=== PATIENT | male | born 1940 | race Caucasian/White ===

== ENCOUNTER → 2017-01-30 | Outpatient (CLI) | payer MEDICARE ==
--- NOTE | 2017-01-30 12:40 | Diagnostic Imaging Report ---
INDICATION: Shortness of air. COMPARISON: None. FINDINGS: Frontal and lateral radiographic views of the chest were obtained and demonstrate moderate area of consolidative airspace disease within the left mid and lower lung contreras. Patchy and interstitial opacities are noted within the left mid and lower lung contreras. No large effusion or pneumothorax is seen. Cardiac silhouette and pulmonary vasculature are within normal limits. Bony structures show no gross acute abnormalities. IMPRESSION: 1. Bilateral infiltrates, left greater than right. Dictated by: Dictated on workstation # [id number]
== END ==
LOC: RAD 11:21
PROVIDERS: ATTEND Internal Medicine
DX: J18.9 Pneumonia, unspecified organism (principal)
CPT/HCPCS: 71020

== ENCOUNTER → 2017-03-05 | Outpatient (CLI) | payer MEDICARE ==
--- NOTE | 2017-03-05 17:30 | Diagnostic Imaging Report ---
CLINICAL INDICATION: Followup pneumonia. EXAM: Chest x-ray PA and lateral views. COMPARISON: Chest x-ray dated 01/30/2017. FINDINGS: There is no significant change in appearance to the patchy consolidation in the left midlung field left lung base. There is no significant change to the smaller amount of patchy consolidation involving the right lung base with increased lung markings involving the right midlung field right lung base regions. There is blunting of both costophrenic angles with no definite pleural effusion seen posteriorly. Cardiac silhouette and pulmonary vasculature is within normal limits. Bones show no interval significant abnormality. IMPRESSION: There is stable appearance of both lungs with bibasilar consolidation (left side more than the right), and increased lung markings in right lung. Given the stability, these findings may be related to chronic lung changes. Chronic pneumonia or lung mass also can't be completely excluded. Comparison with prior chest x-rays would help better evaluate. If none are available, then CT scan of the chest with contrast is suggested for further evaluation. Dictated by: Dictated on workstation # [id number]
== END ==
LOC: RAD 16:24
PROVIDERS: ATTEND Internal Medicine
DX: J18.1 Lobar pneumonia, unspecified organism (principal)
CPT/HCPCS: 71046

== ENCOUNTER → 2017-03-12 | Outpatient (CLI) | payer MEDICARE ==
[~2017-03-12] MED LIST: IOHEXOL 350 MG/ML 100 ML (OMNIPAQUE 350) VIAL IV ONE; NS 100 ML (IVPB) BAG IV ONE
--- NOTE | 2017-03-12 08:25 | Diagnostic Imaging Report ---
PROCEDURE: CT chest with contrast only. TECHNIQUE: Multiple contiguous axial images were obtained through the chest after administration of intravenous contrast. INDICATION: Pneumonia. Comparison is made with chest radiograph from 03/05/2017. No chest CT studies are available for comparison. FINDINGS: No axillary lymphadenopathy is identified. There are small lymph nodes within the mediastinum, but no pathologically enlarged nodes are identified. Kimberly are unremarkable. No pericardial fluid is seen. There is a small amount of left pleural fluid. Note is made of a hiatal hernia. Parenchymal evaluation does show some subpleural interstitial changes in the upper lobes. There is extensive consolidation in the left lower lobe with air bronchograms. Consolidation in the right lower lobe is also seen with air bronchograms but to a lesser degree. Upper abdomen does show a stone within the gallbladder. IMPRESSION: 1. Extensive bibasilar consolidation with air bronchograms, left greater with small left pleural effusion. 2. Hiatal hernia. 3. Cholelithiasis. Dictated by: Dictated on workstation # [id number]
== END ==
LOC: RAD 07:32
PROVIDERS: ATTEND Internal Medicine
DX: J18.9 Pneumonia, unspecified organism (principal); K44.9 Diaphragmatic hernia without obstruction or gangrene; K80.20 Calculus of gallbladder without cholecystitis without obstruction
CPT/HCPCS: 71260

== ENCOUNTER 2017-03-15 13:12 | Inpatient (IN) | payer MEDICARE ==
[~2017-03-15] VITALS: Ht 188 cm; Wt 93.0 kg
--- NOTE | 2017-03-15 13:26 | ED Cough/URI ---
General Stated Complaint: SOB Source: patient Exam Limitations: no limitations History of Present Illness Date Seen by Provider: Mar 15, 2017 Time Seen by Provider: 13:23 Initial Comments To ER complaint by his with worsening pneumonia. He's had pneumonia since just before . At that time he was given a seven-day course of Levaquin. He's not been on any antibiotics since then. His shortness of breath has worsened however. He was a former smoker having quit about 30 years ago. He did have a CT scan of his chest and here last week. Timing/Duration: constant, getting worse Severity/Quality: dry cough Associated Symptoms: cough Allergies and Home Medications Allergies Coded Allergies: No Allergy Information Available (Unverified , 03/12/17) Home Medications Albuterol Sulfate 18 Gm Hfa.aer.ad, (Reported) Bimatoprost 2.5 Ml Drops, (Reported) [Proair] , (Reported) Constitutional: see HPI, chills EENTM: see HPI Respiratory: see HPI, cough ( what's concert) Cardiovascular: no symptoms reported Genitourinary: no symptoms reported Musculoskeletal: no symptoms reported Skin: no symptoms reported Psychiatric/Neurological: No Symptoms Reported Hematologic/Lymphatic: No Symptoms Reported Immunological/Allergic: no symptoms reported ( formal) Past Hrbmckn-Haqtjb-Fkapsj Hx Patient Social History Recent Foreign Travel: No Contact w/Someone Who Travel: No Physical Exam Vital Signs Vital Sign - Last 12Hours 03/15/17 13:49 Temp 97.4 Pulse 89 Resp 20 B/P (MAP) 170/100 (123) Pulse Ox 95 O2 Delivery Nasal Cannula O2 Flow Rate 2.00 Capillary Refill : General Appearance: WD/WN, no apparent distress Eyes: Bilateral Eye Normal Inspection, Bilateral Eye PERRL, Bilateral Eye EOMI HEENT: PERRL/EOMI, normal ENT inspection Neck: non-tender, full range of motion Respiratory: no respiratory distress, no accessory muscle use, decreased breath sounds (LEFT LOWER) Cardiovascular: regular rate, rhythm, no murmur Gastrointestinal: normal bowel sounds, non tender, soft Extremities: normal range of motion, non-tender Neurologic/Psychiatric: alert, normal mood/affect, oriented x 3 Skin: normal color, warm/dry Focused Exam Evaluation Lactate Level Laboratory Tests 03/15/17 14:05: Lactic Acid Level 1.02 Lactic Acid Level Laboratory Tests Test 03/15/17 14:05 Lactic Acid Level 1.02 MMOL/L (0.50-2.00) Progress/Results/Core Measures Suspected Sepsis SIRS Temperature: Pulse: Respiratory Rate: Laboratory Tests 03/15/17 13:26: White Blood Count 10.7 Blood Pressure / Mean: Laboratory Tests 03/15/17 14:05: Lactic Acid Level 1.02 Laboratory Tests 03/15/17 13:26: Platelet Count 363 03/15/17 14:05: Creatinine 1.15, Total Bilirubin 0.6 Results/Orders Lab Results Laboratory Tests Test 03/15/17 13:26 03/15/17 14:05 Range/Units White Blood Count 10.7 4.3-11.0 10^3/uL Red Blood Count 5.12 4.35-5.85 10^6/uL Hemoglobin 16.2 13.3-17.7 G/DL Hematocrit 46 40-54 % Mean Corpuscular Volume 90 80-99 FL Mean Corpuscular Hemoglobin 32 25-34 PG Mean Corpuscular Hemoglobin Concent 35 32-36 G/DL Red Cell Distribution Width 13.4 10.0-14.5 % Platelet Count 363 130-400 10^3/uL Mean Platelet Volume 9.7 7.4-10.4 FL Neutrophils (%) (Auto) 80 H 42-75 % Lymphocytes (%) (Auto) 9 L 12-44 % Monocytes (%) (Auto) 8 0-12 % Eosinophils (%) (Auto) 2 0-10 % Basophils (%) (Auto) 1 0-10 % Neutrophils # (Auto) 8.5 H 1.8-7.8 X 10^3 Lymphocytes # (Auto) 1.0 1.0-4.0 X 10^3 Monocytes # (Auto) 0.9 0.0-1.0 X 10^3 Eosinophils # (Auto) 0.2 0.0-0.3 10^3/uL Basophils # (Auto) 0.1 0.0-0.1 10^3/uL Sodium Level 137 135-145 MMOL/L Potassium Level 4.1 3.6-5.0 MMOL/L Chloride Level 107 98-107 MMOL/L Carbon Dioxide Level 22 21-32 MMOL/L Anion Gap 8 5-14 MMOL/L Blood Urea Nitrogen 22 H 7-18 MG/DL Creatinine 1.15 0.60-1.30 MG/DL Estimat Glomerular Filtration Rate > 60 BUN/Creatinine Ratio 19 Glucose Level 123 H 70-105 MG/DL Lactic Acid Level 1.02 0.50-2.00 MMOL/L Calcium Level 10.0 8.5-10.1 MG/DL Total Bilirubin 0.6 0.1-1.0 MG/DL Aspartate Amino Transf (AST/SGOT) 21 5-34 U/L Alanine Aminotransferase (ALT/SGPT) 31 0-55 U/L Alkaline Phosphatase 123 40-136 U/L B-Type Natriuretic Peptide 10.4 <100.0 PG/ML Total Protein 7.3 6.4-8.2 GM/DL Albumin 3.8 3.2-4.5 GM/DL My Orders Orders - SOLE ZIMMERMAN APRN Cbc With Automated Diff (03/15/17 13:20) Comprehensive Metabolic Panel (03/15/17 13:20) Ua Culture If Indicated (03/15/17 13:20) Saline Lock/Iv-Start (03/15/17 13:20) Blood Culture (03/15/17 13:20) Chest Pa/Lat (2 View) (03/15/17 13:20) BNP (03/15/17 13:20) Saline Lock/Iv-Start (03/15/17 13:20) Lactic Acid Analyzer (03/15/17 13:20) Albuterol/Ipra Inhalation Soln (Duoneb I (03/15/17 14:00) Svn Sm Volume Nebulizer Rt-Rfs (03/15/17 13:52) Blood Culture (03/15/17 14:05) Medications Given in ED Current Medications Medications Dose Ordered Sig/Frantz Route Start Time Stop Time Status Last Admin Dose Admin Albuterol/ Ipratropium 3 ml ONCE ONCE INH 03/15/17 14:00 03/15/17 14:01 DC 03/15/17 14:08 3 ML Vital Signs/I&O Vital Sign - Last 12Hours 03/15/17 03/15/17 13:49 14:09 Temp 97.4 Pulse 89 Resp 20 B/P (MAP) 170/100 (123) Pulse Ox 95 O2 Delivery Nasal Cannula Nasal Cannula O2 Flow Rate 2.00 2.00 Capillary Refill : Departure Communication (Admissions) Time/Spoke to Admitting Phy: 14:44 Communication I discussed case with Dr. Ely. We'll admit the patient and consult pulmonology Time/Spoke to Consulting Phy: 14:45 Communication/Consulting Discussed with Dr. Verdugo from pulmonology. He agrees to consult. Impression Impression: Primary Impression: Pneumonia Additional Impression: Bilateral pleural effusion Disposition: ADMITTED INPATIENT Condition: Stable Admissions Decision to Admit Reason: Admit from ER (General) Decision to Admit/Date: Mar 15, 2017 Time/Decision to Admit Time: 14:44 Departure-Patient Inst. Referrals: UMA CRISOSTOMO DO (PCP/Family) Primary Care Physician SOLE ZIMMERMAN APRN Mar 15, 2017 13:26
[2017-03-15 13:40] LABS: BASOPHILS # (AUTO) 0.1 10^3/uL (0.0-0.1); BASOPHILS % (AUTO) 1 % (0-10); EOSINOPHILS # (AUTO) 0.2 10^3/uL (0.0-0.3); EOSINOPHILS % (AUTO) 2 % (0-10); HEMATOCRIT 46 % (40-54); HEMOGLOBIN 16.2 G/DL (13.3-17.7); LYMPHOCYTES % (AUTO) 9 % (12-44); MEAN CORPUSCULAR HEMOGLOBIN 32 PG (25-34); MEAN CORPUSCULAR HGB CONC 35 G/DL (32-36); MEAN CORPUSCULAR VOLUME 90 FL (80-99); MEAN PLATELET VOLUME 9.7 FL (7.4-10.4); MONOCYTES # (AUTO) 0.9 X 10^3 (0.0-1.0); MONOCYTES % (AUTO) 8 % (0-12); NEUTROPHILS # (AUTO) 8.5 X 10^3 (1.8-7.8); NEUTROPHILS % (AUTO) 80 % (42-75); PLATELET COUNT 363 10^3/uL (130-400); RED BLOOD COUNT 5.12 10^6/uL (4.35-5.85); RED CELL DISTRIBUTION WIDTH 13.4 % (10.0-14.5); WHITE BLOOD COUNT 10.7 10^3/uL (4.3-11.0)
[2017-03-15] MEDS ORDERED: INHA1EAC (14:00)
[2017-03-15] MEDS ORDERED: ALBU18HF2 IH (14:00)
[2017-03-15] MEDS ORDERED: BIMA2.5D4 OS (14:00)
[2017-03-15] MEDS ORDERED: PROAIR (14:00)
[2017-03-15] MEDS ORDERED: RT-ALBUTEROL/IPRATROPIUM 3 ML (DUONEB) VIAL INH ONE (14:00)
--- NOTE | 2017-03-15 14:28 | Diagnostic Imaging Report ---
INDICATION: Increasing difficulty breathing. TIME OF EXAM: 2:10 p.m. COMPARISON: Correlation is made with prior study from 03/05/2017. FINDINGS: The heart size is stable. There continues to be extensive infiltrate in the left base, similar to prior. There are some interstitial changes in the right mid and lower lung contreras, unchanged. There are bilateral effusions. No pneumothorax is seen. IMPRESSION: Bilateral infiltrates and effusions, similar in appearance to the examination from 03/05/2017. Dictated by: Dictated on workstation # [id number]
[2017-03-15 14:32] LABS: ALANINE AMINOTRANSFERASE 31 U/L (0-55); ALBUMIN 3.8 GM/DL (3.2-4.5); ALKALINE PHOSPHATASE 123 U/L (40-136); BILIRUBIN,TOTAL 0.6 MG/DL (0.1-1.0); BUN/CREATININE RATIO 19; CARBON DIOXIDE 22 MMOL/L (21-32); CHLORIDE 107 MMOL/L (98-107); CREATININE SERUM 1.15 MG/DL (0.60-1.30); GFR ESTIMATED > 60; GLUCOSE 123 MG/DL (70-105); POTASSIUM 4.1 MMOL/L (3.6-5.0); SODIUM 137 MMOL/L (135-145); TOTAL PROTEIN 7.3 GM/DL (6.4-8.2)
[2017-03-15] MEDS ORDERED: PIPERACILLIN SODIUM/TAZOBACTAM 4.5 GM in D5W 100 ML IVPB 100 ML IV ONE (15:00)
[2017-03-15] MEDS ORDERED: CATHETER FLUSH 10 ML SYR IV PRN (16:15)
[2017-03-15 16:25] VITALS: BP 160/89
[2017-03-15] MEDS ORDERED: RT-ALBUINH IH (16:55)
[2017-03-15] MEDS ORDERED: INFLUENZA TRIvalent 2017-2018 0.5 ML/45 MCG SYR IM ONE (17:30)
[2017-03-15] MEDS: CATHETER FLUSH 10 ML SYR IV SCH (19:40)
[2017-03-15] MEDS: PIPERACILLIN/TAZOBACTAM 4.5 GM/D5W 100 ML IVPB IV SCH ×2 (19:40)
[2017-03-15] MEDS ORDERED: HYDROcodone/APAP 5 MG/325 MG (LORTAB) TAB PO PRN (19:45)
[2017-03-15] MEDS ORDERED: fentaNYL INJECTION 100 MCG/2 ML AMP IVP PRN (19:45)
[2017-03-15] MEDS ORDERED: guaiFENesin/CODEINE (ROBITUSSIN AC) 10ML UDC PO PRN (19:45)
[2017-03-15] MEDS ORDERED: IBUPROFEN TABLET 200 MG TAB PO PRN (19:45)
[2017-03-15] MEDS ORDERED: ONDANSETRON 4 MG/2 ML (SDV) Z0FRAN IVP PRN (19:45)
[2017-03-15] MEDS ORDERED: ALPRAZolam 0.25 MG (XANAX) TAB PO PRN (19:45)
[2017-03-15] MEDS ORDERED: ACETAMINOPHEN 500 MG TAB (TYLENOL) PO PRN (19:45)
[2017-03-15 19:52] VITALS: BP 158/90
[2017-03-15] MEDS ORDERED: RT-ALBUTEROL/IPRATROPIUM 3 ML (DUONEB) VIAL INH PRN (20:30)
[2017-03-15] MEDS: amLODIPine 5 MG (NORVASC) TAB PO SCH (20:47)
[2017-03-15] MEDS: LATANOPROST 0.005% (XALATAN) OPHTH SOLN 2.5 ML OS SCH ×2 (20:49→21:23)
[2017-03-15] MEDS: RT-ALBUTEROL/IPRATROPIUM 3 ML (DUONEB) VIAL INH SCH (22:06)
[2017-03-16] VITALS: BP 141/84
[2017-03-16] MEDS: RT-ALBUTEROL/IPRATROPIUM 3 ML (DUONEB) VIAL INH SCH ×5 (01:13→19:14)
[2017-03-16 04:00] VITALS: BP 158/99
[2017-03-16] MEDS: PIPERACILLIN/TAZOBACTAM 4.5 GM/D5W 100 ML IVPB IV SCH ×6 (04:28→20:06)
[2017-03-16] MEDS: CATHETER FLUSH 10 ML SYR IV SCH ×3 (04:28→20:06)
[2017-03-16 07:09] LABS: BASOPHILS # (AUTO) 0.1 10^3/uL (0.0-0.1); BASOPHILS % (AUTO) 1 % (0-10); EOSINOPHILS # (AUTO) 0.2 10^3/uL (0.0-0.3); EOSINOPHILS % (AUTO) 3 % (0-10); HEMATOCRIT 42 % (40-54); HEMOGLOBIN 14.4 G/DL (13.3-17.7); LYMPHOCYTES # (AUTO) 0.8 X 10^3 (1.0-4.0); LYMPHOCYTES % (AUTO) 9 % (12-44); MEAN CORPUSCULAR HEMOGLOBIN 31 PG (25-34); MEAN CORPUSCULAR HGB CONC 34 G/DL (32-36); MEAN CORPUSCULAR VOLUME 91 FL (80-99); MEAN PLATELET VOLUME 10.2 FL (7.4-10.4); MONOCYTES % (AUTO) 11 % (0-12); NEUTROPHILS # (AUTO) 6.9 X 10^3 (1.8-7.8); NEUTROPHILS % (AUTO) 77 % (42-75); PLATELET COUNT 373 10^3/uL (130-400); RED BLOOD COUNT 4.59 10^6/uL (4.35-5.85); RED CELL DISTRIBUTION WIDTH 13.1 % (10.0-14.5)
[2017-03-16 07:23] LABS: ALANINE AMINOTRANSFERASE 28 U/L (0-55); ALBUMIN 3.8 GM/DL (3.2-4.5); ALKALINE PHOSPHATASE 115 U/L (40-136); BILIRUBIN,TOTAL 0.8 MG/DL (0.1-1.0); BUN/CREATININE RATIO 21; CALCIUM 9.8 MG/DL (8.5-10.1); CARBON DIOXIDE 22 MMOL/L (21-32); CHLORIDE 105 MMOL/L (98-107); CREATININE SERUM 1.08 MG/DL (0.60-1.30); GFR ESTIMATED > 60; GLUCOSE 103 MG/DL (70-105); POTASSIUM 3.8 MMOL/L (3.6-5.0); SODIUM 138 MMOL/L (135-145); TOTAL PROTEIN 7.2 GM/DL (6.4-8.2)
--- NOTE | 2017-03-16 07:27 | Pulmonary Consultation ---
History of Present Illness History of Present Illness Date of Consultation 03/16/17 07:22 Time Seen by Provider: 07:22 Date of Admission History of Present Illness 76yo presented secondary to worsening SOB. HE states he has had pneumonia since . He was given a 7 day course of Levaquin in Jan. He has not been on any Abx since that time. He quit smoking 30yrs ago. Allergies and Home Medications Allergies Coded Allergies: No Allergy Information Available (Unverified , 03/15/17) Home Medications Albuterol Sulfate 1 Puff Puff, 2 PUFF IH Q6H PRN for WHEEZING, (Reported) Amlodipine Besylate 5 Mg Tablet, 5 MG PO DAILY, #30 Prescribed by: LORI GANDHI on 03/19/17 0945 Amoxicillin/Potassium Clav 1 Each Tablet, 1 EACH PO BID for 5 Days, #10 Prescribed by: LORI GANDHI on 03/19/17 0945 Bimatoprost 2.5 Ml Drops, 1 DROP OS HS, (Reported) Guaifenesin/Pseudoephedrne HCl 1 Each Tab.er.12h, 1 TAB PO Q12H PRN for CONGESTION, (Reported) Multivitamin 1 Each Tablet, 1 TAB PO DAILY, (Reported) Naproxen Sodium 220 Mg Tablet, 220-440 MG PO Q8H PRN for PAIN-MILD, (Reported) Omeprazole Magnesium 20 Mg Tablet.dr, 20 MG PO DAILY, (Reported) Past Xakiwvr-Iaijrn-Vjrkat Hx Patient Social History Alcohol Use: Rarely Uses Number of Drinks Today: 0 Alcohol Beverage of Choice: Beer Recreational Drug Use: No Smoking Status: Former Smoker Type Used: Cigars Former Smoker, Quit: Mar 25, 1985 Recent Foreign Travel: No Contact w/Someone Who Travel: No Recent Infectious Disease Expo: No Recent Hopitalizations: No Physical Abuse: No Sexual Abuse: No Mistreated: No Fear: No Seasonal Allergies Seasonal Allergies: Yes (SEASONAL ALLERGIES) Surgeries History of Surgeries: Yes Surgeries: Eye Surgery Respiratory History of Respiratory Disorde: Yes Respiratory Disorders: Pneumonia Cardiovascular History of Cardiac Disorders: No Neurological History of Neurological Disord: No Genitourinary History of Genitourinary Disor: No Gastrointestinal History of Gastrointestinal Di: Yes Gastrointestinal Disorders: Gastroesophageal Reflux Musculoskeletal History of Musculoskeletal Dis: No Endocrine History of Endocrine Disorders: No HEENT History of HEENT Disorders: Yes HEENT Disorders: Glaucoma Cancer History of Cancer: No Psychosocial History of Psychiatric Problem: No Suicide Risk Score: 0 Integumentary History of Skin or Integumenta: No Blood Transfusions History of Blood Disorders: No Adverse Reaction to a Blood Tr: No Review of Systems Time Seen by Provider: 07:47 Exam Exam Vital Signs Date Time Temp Pulse Resp B/P (MAP) Pulse Ox O2 Delivery O2 Flow Rate FiO2 03/16/17 07:09 97 Nasal Cannula 2.00 03/16/17 04:00 97.5 82 18 158/99 (118) 98 Nasal Cannula 2.00 03/16/17 01:13 98 Nasal Cannula 2.00 03/16/17 01:00 68 03/16/17 00:00 97.5 57 20 141/84 (103) 99 Nasal Cannula 2.00 03/15/17 22:07 96 Nasal Cannula 2.00 03/15/17 20:52 Nasal Cannula 2.00 03/15/17 19:55 75 96 03/15/17 19:52 97.9 75 18 158/90 (112) 98 Nasal Cannula 2.00 03/15/17 19:00 75 03/15/17 16:25 97.2 76 18 160/89 (112) 98 Nasal Cannula 2.00 03/15/17 16:00 Nasal Cannula 2.00 03/15/17 15:40 97.4 82 16 98 Nasal Cannula 2.00 03/15/17 14:09 Nasal Cannula 2.00 03/15/17 13:49 97.4 89 20 170/100 (123) 95 Nasal Cannula 2.00 I & O 03/16/17 07:00 Intake Total 740 ml Output Total 400 ml Balance 340 ml Capillary Refill: Less Than 3 Seconds Gastrointestinal: normal bowel sounds, non tender, soft Results Lab Laboratory Tests 03/15/17 13:26 03/15/17 14:05 03/16/17 05:33 Assessment/Plan Assessment/Plan Pneumonia - failed out patient treatment -Continue broad spectrum abx. -repeat CT scan on Sunday -Pt may need bronchoscopy will await repeat CT 254 Clinical Quality Measures DVT/VTE Risk/Contraindication: Risk Factor Score Per Nursin RFS Level Per Nursing on Admit: 2=Moderate PHIL KEANE DO Mar 16, 2017 07:27
--- NOTE | 2017-03-16 07:44 | Pulmonary Progress Note ---
Subjective Time Seen by Provider: 07:44 Subjective/Events-last exam No complications noted. Exam Exam Vital Signs Date Time Temp Pulse Resp B/P (MAP) Pulse Ox O2 Delivery O2 Flow Rate FiO2 03/16/17 07:09 97 Nasal Cannula 2.00 03/16/17 04:00 97.5 82 18 158/99 (118) 98 Nasal Cannula 2.00 03/16/17 01:13 98 Nasal Cannula 2.00 03/16/17 01:00 68 03/16/17 00:00 97.5 57 20 141/84 (103) 99 Nasal Cannula 2.00 03/15/17 22:07 96 Nasal Cannula 2.00 03/15/17 20:52 Nasal Cannula 2.00 03/15/17 19:55 75 96 03/15/17 19:52 97.9 75 18 158/90 (112) 98 Nasal Cannula 2.00 03/15/17 19:00 75 03/15/17 16:25 97.2 76 18 160/89 (112) 98 Nasal Cannula 2.00 03/15/17 16:00 Nasal Cannula 2.00 03/15/17 15:40 97.4 82 16 98 Nasal Cannula 2.00 03/15/17 14:09 Nasal Cannula 2.00 03/15/17 13:49 97.4 89 20 170/100 (123) 95 Nasal Cannula 2.00 I & O 03/16/17 07:00 Intake Total 740 ml Output Total 400 ml Balance 340 ml General Appearance: No Apparent Distress, WD/WN, Anxious HEENT: PERRL/EOMI, Normal ENT Inspection, Pharynx Normal Neck: Full Range of Motion, Normal Inspection, Non Tender, Supple Respiratory: No Accessory Muscle Use, No Respiratory Distress, Crackles, Decreased Breath Sounds Cardiovascular: Regular Rate, Rhythm, No Edema, No Gallop Capillary Refill: Less Than 3 Seconds Gastrointestinal: normal bowel sounds, non tender, soft Extremity: Normal Capillary Refill, Normal Inspection Neurologic/Psychiatric: Alert Skin: Normal Color, Warm/Dry Lymphatic: No Adenopathy Results Lab Laboratory Tests 03/15/17 13:26 03/15/17 14:05 03/16/17 05:33 Assessment/Plan Assessment/Plan Pneumonia - failed out patient treatment -Continue broad spectrum abx. -repeat CT scan on Sunday -Pt may need bronchoscopy will await repeat CT 232 Clinical Quality Measures DVT/VTE Risk/Contraindication: Risk Factor Score Per Nursin RFS Level Per Nursing on Admit: 2=Moderate PHIL KEANE DO Mar 16, 2017 07:44
[2017-03-16 08:00] VITALS: BP 142/78
[2017-03-16] MEDS: amLODIPine 5 MG (NORVASC) TAB PO SCH (08:34)
[2017-03-16] MEDS ORDERED: NON-FORMULARY MEDICATION 1 EA EA (Bimatoprost (Lumigan) 1 DROP) OS SCH (09:00)
[2017-03-16] MEDS ORDERED: OMEP20TA33 PO (09:49)
[2017-03-16] MEDS ORDERED: MULT-35 PO (09:50)
[2017-03-16] MEDS ORDERED: GUAI-148 PO (09:51)
[2017-03-16] MEDS ORDERED: NAPR220T66 PO (09:52)
--- NOTE | 2017-03-16 11:31 | History & Physical-Hospitalist ---
HPI History of Present Illness: HPI/Chief Complaint CC: Recurrent pneumonia HPI: This is a 76-year-old white male clinic patient of Dr. Mckeon who is in relatively good health up until recently in January when he was treated for pneumonia from Dr. Mckeon's office completed that 7 day course of antibiotics and felt much better but did not feel like he had complete resolution. He presented to the ER with shortness of breath and cough and fever was found to have bilateral pneumonia with effusions so Dr. Verdugo was consulted and he will be maintained on IV antibiotics and repeat CT scan on Sunday to evaluate any resolution or the surfacing of any lung mass that may be the cause of this recurrent pneumonia issue. He was restarted on his home eyedrops but otherwise denies any use of any antihypertensive or any heart medicine. Source: patient Exam Limitations: no limitations Date Seen 03/16/17 Time Seen by Provider: 10:30 Attending Physician Alis Carranza DO PCP Uma Mckeon DO Referring Physician Date of Admission Mar 15, 2017 at 13:53 Home Medications & Allergies Home Medications Reviewed patient Home Medication Reconciliation Form Allergies Allergies Coded Allergies No Allergy Information Available (Unverified03/15/17) Past Rphpjva-Bcmaqs-Dabnih Hx Patient Social History Marrital Status: single Employed/Student: retired Alcohol Use: Rarely Uses Number of Drinks Today: 0 Alcohol Beverage of Choice: Beer Recreational Drug Use: No Smoking Status: Former Smoker Former Smoker, Quit: Mar 25, 1985 Type Used: Cigars Physical Abuse Screen: No Sexual Abuse: No Recent Foreign Travel: No Contact w/other who traveled: No Recent Hopitalizations: No Recent Infectious Disease Expo: No Seasonal Allergies Seasonal Allergies: Yes (SEASONAL ALLERGIES) Surgeries Yes Eye Surgery Respiratory Yes COPD, Pneumonia Cardiovascular No Neurological No Genitourinary No Gastrointestinal Yes Gastroesophageal Reflux Musculoskeletal No Endocrine History of Endocrine Disorders: No HEENT History of HEENT Disorders: Yes HEENT Disorders: Glaucoma Cancer No Psychosocial History of Psychiatric Problem: No Integumentary History of Skin or Integumenta: No Blood Transfusions History of Blood Disorders: No Adverse Reaction to a Blood Tr: No Review of Systems Constitutional: see HPI, fever, weakness EENTM: no symptoms reported Respiratory: cough, short of breath, wheezing Cardiovascular: no symptoms reported Gastrointestinal: no symptoms reported Genitourinary: no symptoms reported Musculoskeletal: no symptoms reported Skin: no symptoms reported Psychiatric/Neurological: No Symptoms Reported All Other Systems Reviewed Negative Unless Noted: Yes Physical Exam Physical Exam Vital Signs Vital Sign - Last 12Hours 03/15/17 13:49 Temp 97.4 Pulse 89 Resp 20 B/P (MAP) 170/100 (123) Pulse Ox 95 O2 Delivery Nasal Cannula O2 Flow Rate 2.00 Capillary Refill : Less Than 3 SecondsLess Than 3 Seconds General Appearance: No Apparent Distress, WD/WN, Chronically ill Eyes: Bilateral Eye Normal Inspection, Bilateral Eye PERRL HEENT: PERRL/EOMI, Normal ENT Inspection, Pharynx Normal Neck: Full Range of Motion, Normal Inspection, Non Tender, Supple, Carotid Bruit Respiratory: Chest Non Tender, No Accessory Muscle Use, No Respiratory Distress , Crackles, Decreased Breath Sounds, Wheezing Cardiovascular: Regular Rate, Rhythm, No Edema, No Gallop, No JVD, No Murmur, Normal Peripheral Pulses Gastrointestinal: Normal Bowel Sounds, No Organomegaly, No Pulsatile Mass, Non Tender, Soft Back: Normal Inspection, No CVA Tenderness, No Vertebral Tenderness Extremity: Normal Capillary Refill, Normal Inspection, Normal Range of Motion, Non Tender, No Calf Tenderness, No Pedal Edema Neurologic/Psychiatric: Alert, Oriented x3, No Motor/Sensory Deficits, Normal Mood/Affect Skin: Normal Color, Warm/Dry Lymphatic: No Adenopathy Results Results/Procedures Lab Laboratory Tests 03/15/17 13:26 03/15/17 14:05 03/16/17 05:33 Assessment/Plan Admission Diagnosis Assessment: Bilateral pneumonia with pleural effusions with recent pneumonia treated for 7 days on antibiotics in January Presumed COPD likely will need home oxygen at discharge Glaucoma Assessment and Plan Plan: IV antibiotics Nebulizer treatments Oxygen supplementation Home eyedrops Antitussives Copy Copies To 1: UMA MCKEON DO Clinical Quality Measures DVT/VTE Risk/Contraindication: Risk Factor Score Per Nursin RFS Level Per Nursing on Admit: 2=Moderate ALIS CARRANZA DO Mar 16, 2017 11:31
[2017-03-16 12:00] VITALS: BP 152/76
[2017-03-16] MEDS ORDERED: CALCIUM CARBONATE 500 MG (TUMS) TAB.CHEW PO PRN (15:30)
[2017-03-16] MEDS: PANTOPRAZOLE 40 MG (PROTONIX) TAB PO SCH (15:32)
[2017-03-16 16:23] VITALS: BP 136/79
[2017-03-16 19:30] VITALS: BP 159/89
[2017-03-16] MEDS: LATANOPROST 0.005% (XALATAN) OPHTH SOLN 2.5 ML OS SCH (20:06)
[2017-03-17] VITALS (7 sets, daily range): BP systolic 128–179; BP diastolic 69–93
[2017-03-17] MEDS: RT-ALBUTEROL/IPRATROPIUM 3 ML (DUONEB) VIAL INH SCH ×7 (00:17→23:09)
[2017-03-17] MEDS: PIPERACILLIN/TAZOBACTAM 4.5 GM/D5W 100 ML IVPB IV SCH ×6 (04:38→20:21)
[2017-03-17] MEDS: CATHETER FLUSH 10 ML SYR IV SCH ×3 (04:38→22:01)
[2017-03-17] MEDS: PANTOPRAZOLE 40 MG (PROTONIX) TAB PO SCH (04:39)
[2017-03-17] MEDS: amLODIPine 5 MG (NORVASC) TAB PO SCH (08:00)
--- NOTE | 2017-03-17 12:09 | Progress Note-Hospitalist ---
Progress Note HPI/CC on Admission CC: Recurrent pneumonia HPI: This is a 76-year-old white male clinic patient of Dr. Mckeon who is in relatively good health up until recently in January when he was treated for pneumonia from Dr. Mckoen's office completed that 7 day course of antibiotics and felt much better but did not feel like he had complete resolution. He presented to the ER with shortness of breath and cough and fever was found to have bilateral pneumonia with effusions so Dr. Verdugo was consulted and he will be maintained on IV antibiotics and repeat CT scan on Sunday to evaluate any resolution or the surfacing of any lung mass that may be the cause of this recurrent pneumonia issue. He was restarted on his home eyedrops but otherwise denies any use of any antihypertensive or any heart medicine. Progress Notes/Assess & Plan Date Seen 03/17/17 Time Seen by Provider: 11:00 Admission Dx/Process Assessment: Bilateral pneumonia with pleural effusions with recent pneumonia treated for 7 days on antibiotics in January Presumed COPD likely will need home oxygen at discharge Glaucoma Diagonsis/Assessment & Plan Patient doing much better and is able to ambulate well and currently is not on oxygen Nebulizers continue and that is helping him No chest pain and minimal cough CT scan ordered for tomorrow per pulmonology recommendations Denies any pain Bowels are moving No fever, vital signs stable, pleasant, improved Regular rate and rhythm, clear to auscultation bilaterally except bilateral bases crackles on the left are greater than the right No edema Assessment: Bilateral pneumonia with pleural effusions with recent pneumonia treated for 7 days on antibiotics in January Presumed COPD likely will need home oxygen at discharge Glaucoma Plan: IV antibiotics Nebulizer treatments Oxygen supplementation Home eyedrops Antitussives CT scan chest tomorrow Check labs in SHIVANI Alexandre DO Mar 17, 2017 12:09
[2017-03-17] MEDS: LATANOPROST 0.005% (XALATAN) OPHTH SOLN 2.5 ML OS SCH (20:31)
[2017-03-18] MEDS: RT-ALBUTEROL/IPRATROPIUM 3 ML (DUONEB) VIAL INH SCH ×4 (03:42→14:39)
[2017-03-18 04:07] VITALS: BP 145/87
[2017-03-18] MEDS: PIPERACILLIN/TAZOBACTAM 4.5 GM/D5W 100 ML IVPB IV SCH ×6 (05:10→20:41)
[2017-03-18] MEDS: CATHETER FLUSH 10 ML SYR IV SCH ×3 (05:11→20:41)
[2017-03-18] MEDS: PANTOPRAZOLE 40 MG (PROTONIX) TAB PO SCH (05:46)
[2017-03-18 07:03] LABS: BASOPHILS # (AUTO) 0.1 10^3/uL (0.0-0.1); BASOPHILS % (AUTO) 1 % (0-10); EOSINOPHILS # (AUTO) 0.4 10^3/uL (0.0-0.3); EOSINOPHILS % (AUTO) 4 % (0-10); HEMATOCRIT 41 % (40-54); HEMOGLOBIN 14.2 G/DL (13.3-17.7); LYMPHOCYTES # (AUTO) 0.8 X 10^3 (1.0-4.0); LYMPHOCYTES % (AUTO) 8 % (12-44); MEAN CORPUSCULAR HEMOGLOBIN 32 PG (25-34); MEAN CORPUSCULAR HGB CONC 35 G/DL (32-36); MEAN CORPUSCULAR VOLUME 92 FL (80-99); MEAN PLATELET VOLUME 10.2 FL (7.4-10.4); MONOCYTES # (AUTO) 1.3 X 10^3 (0.0-1.0); MONOCYTES % (AUTO) 13 % (0-12); NEUTROPHILS # (AUTO) 7.3 X 10^3 (1.8-7.8); NEUTROPHILS % (AUTO) 74 % (42-75); PLATELET COUNT 368 10^3/uL (130-400); RED BLOOD COUNT 4.49 10^6/uL (4.35-5.85); RED CELL DISTRIBUTION WIDTH 13.3 % (10.0-14.5); WHITE BLOOD COUNT 9.8 10^3/uL (4.3-11.0)
[2017-03-18 07:24] LABS: ALANINE AMINOTRANSFERASE 28 U/L (0-55); ALBUMIN 3.7 GM/DL (3.2-4.5); ALKALINE PHOSPHATASE 97 U/L (40-136); BILIRUBIN,TOTAL 0.9 MG/DL (0.1-1.0); BUN/CREATININE RATIO 19; CALCIUM 10.1 MG/DL (8.5-10.1); CARBON DIOXIDE 22 MMOL/L (21-32); CHLORIDE 106 MMOL/L (98-107); CREATININE SERUM 1.15 MG/DL (0.60-1.30); GFR ESTIMATED > 60; GLUCOSE 101 MG/DL (70-105); SODIUM 136 MMOL/L (135-145)
[2017-03-18 08:40] VITALS: BP 129/79
[2017-03-18] MEDS ORDERED: NS 250 ML (IVPB) BAG IV ONE (09:30)
[2017-03-18] MEDS ORDERED: NS 100 ML (IVPB) BAG IV ONE (09:30)
[2017-03-18] MEDS ORDERED: IOHEXOL 350 MG/ML 100 ML (OMNIPAQUE 350) VIAL IV ONE (09:30)
[2017-03-18] MEDS: amLODIPine 5 MG (NORVASC) TAB PO SCH (09:52)
--- NOTE | 2017-03-18 10:57 | Diagnostic Imaging Report ---
PROCEDURE: CT chest with contrast only. TECHNIQUE: Multiple contiguous axial images were obtained through the chest after administration of intravenous contrast. INDICATION: Pneumonia. COMPARISON with 03/12/2017 FINDINGS: There is extensive infiltrate in the patient's left lower lobe involving portions of the dependent lingular segment of the left upper lobe, as well. While considerable consolidation remains, overall improved from prior. There is hyperdensity within the periphery of the consolidated lung parenchyma which may reflect some chronic aspirated debris. This is unchanged. More mild patchy subpleural infiltrates and groundglass disease in the right lower lobe appeared unchanged. Subpleural scarring in the upper lobes, unchanged. Retrocardiac hernia, unchanged. Cholelithiasis noted incidentally. No demonstrated PE. The aorta is patent and nonaneurysmal. IMPRESSION: Extensive left lower lobe and lingular infiltrate remain, at least somewhat improved from prior. There is infiltrate in the right lower lobe and chronic lung disease superimposed unchanged. No abscess or empyema. Hiatal hernia and cholelithiasis, chronic. No new abnormality. Dictated by: Dictated on workstation # [id number]
[2017-03-18 12:00] VITALS: BP 135/74
--- NOTE | 2017-03-18 13:13 | Progress Note-Hospitalist ---
Progress Note HPI/CC on Admission CC: Recurrent pneumonia HPI: This is a 76-year-old white male clinic patient of Dr. Mckeon who is in relatively good health up until recently in January when he was treated for pneumonia from Dr. Mckeon's office completed that 7 day course of antibiotics and felt much better but did not feel like he had complete resolution. He presented to the ER with shortness of breath and cough and fever was found to have bilateral pneumonia with effusions so Dr. Verdugo was consulted and he will be maintained on IV antibiotics and repeat CT scan on Sunday to evaluate any resolution or the surfacing of any lung mass that may be the cause of this recurrent pneumonia issue. He was restarted on his home eyedrops but otherwise denies any use of any antihypertensive or any heart medicine. Progress Notes/Assess & Plan Date Seen 03/18/17 Time Seen by Provider: 11:30 Admission Dx/Process Assessment: Bilateral pneumonia with pleural effusions with recent pneumonia treated for 7 days on antibiotics in January Presumed COPD likely will need home oxygen at discharge Glaucoma Diagonsis/Assessment & Plan Patient doing much better and is able to ambulate well and currently is not on oxygen Nebulizers continue and that is helping him No chest pain and minimal cough CT scan reviewed revealing extensive pneumonia and no mass but will await Pulmonology evaluation Denies any pain Bowels are moving No fever, vital signs stable, pleasant, improved Regular rate and rhythm, clear to auscultation bilaterally except bilateral bases crackles on the left are greater than the right No edema Assessment: Bilateral pneumonia with pleural effusions with recent pneumonia treated for 7 days on antibiotics in January Presumed COPD likely will need home oxygen at discharge Glaucoma Plan: IV antibiotics Nebulizer treatments Oxygen supplementation Home eyedrops Antitussives CT scan chest to be reviewed by Dr Lucina MOORE Sunday SHIVANI CARRANZA DO Mar 18, 2017 13:13
[2017-03-18 14:39] VITALS: BP 135/74
[2017-03-18 16:59] VITALS: BP 145/79
[2017-03-18 17:18] VITALS: BP 145/79
[2017-03-18] MEDS: LATANOPROST 0.005% (XALATAN) OPHTH SOLN 2.5 ML OS SCH (20:41)
[2017-03-19 00:45] VITALS: BP 156/83
[2017-03-19] MEDS: RT-ALBUTEROL/IPRATROPIUM 3 ML (DUONEB) VIAL INH SCH ×3 (00:45→10:33)
[2017-03-19] MEDS: CATHETER FLUSH 10 ML SYR IV SCH (05:22)
[2017-03-19] MEDS: PIPERACILLIN/TAZOBACTAM 4.5 GM/D5W 100 ML IVPB IV SCH ×2 (05:22)
[2017-03-19] MEDS: PANTOPRAZOLE 40 MG (PROTONIX) TAB PO SCH (05:22)
[2017-03-19 07:53] VITALS: BP 133/76
[2017-03-19] MEDS: amLODIPine 5 MG (NORVASC) TAB PO SCH (08:21)
--- NOTE | 2017-03-19 09:37 | Pulmonary Progress Note ---
Subjective Time Seen by Provider: 09:39 Subjective/Events-last exam pt is doing better and wants to go home. Exam Exam Vital Signs Date Time Temp Pulse Resp B/P (MAP) Pulse Ox O2 Delivery O2 Flow Rate FiO2 03/19/17 07:56 Room Air 03/19/17 07:53 96.9 86 20 133/76 (95) 96 Room Air 03/19/17 06:58 92 Room Air 03/19/17 00:45 98.0 91 16 156/83 (107) 97 Room Air 03/18/17 21:00 Room Air 03/18/17 17:18 90 95 03/18/17 16:59 98.3 90 20 145/79 (101) 95 Room Air 03/18/17 14:39 91 Room Air 03/18/17 14:39 82 91 21 03/18/17 12:00 98.3 88 20 135/74 (94) Room Air 03/18/17 10:36 90 Room Air I & O 03/19/17 07:00 Intake Total 1996 ml Output Total 12 ml Balance 1984 ml General Appearance: No Apparent Distress, WD/WN, Chronically ill HEENT: PERRL/EOMI, Normal ENT Inspection, Pharynx Normal Neck: Full Range of Motion, Normal Inspection, Non Tender, Supple, Carotid Bruit Respiratory: Chest Non Tender, No Accessory Muscle Use, No Respiratory Distress , Crackles, Decreased Breath Sounds, Wheezing Cardiovascular: Regular Rate, Rhythm, No Edema, No Gallop, No JVD, No Murmur, Normal Peripheral Pulses Capillary Refill: Less Than 3 Seconds Gastrointestinal: normal bowel sounds, non tender, soft Extremity: Normal Capillary Refill, Normal Inspection, Normal Range of Motion, Non Tender, No Calf Tenderness, No Pedal Edema Neurologic/Psychiatric: Alert, Oriented x3, No Motor/Sensory Deficits, Normal Mood/Affect Skin: Normal Color, Warm/Dry Lymphatic: No Adenopathy Results Lab Laboratory Tests 03/18/17 06:09 Assessment/Plan Assessment/Plan Pneumonia - failed out patient treatment -Continue broad spectrum abx. -repeat CT scan as out patient in 6-8wks -Pt is ok for discharge with Augmentin x 5 more days. 232 Clinical Quality Measures DVT/VTE Risk/Contraindication: Risk Factor Score Per Nursin RFS Level Per Nursing on Admit: 2=Moderate PHIL KEANE DO Mar 19, 2017 09:37
[2017-03-19] MEDS ORDERED: AMOX-358 PO (09:45)
[2017-03-19] MEDS ORDERED: AMLO5TAB2 PO (09:45)
--- NOTE | 2017-03-19 09:54 | Discharge Summary-Hospitalist ---
Diagnosis/Chief Complaint Date of Admission Mar 15, 2017 at 13:53 Date of Discharge Discharge Date: Mar 19, 2017 Admission Diagnosis Assessment: Bilateral pneumonia with pleural effusions with recent pneumonia treated for 7 days on antibiotics in January Presumed COPD likely will need home oxygen at discharge Glaucoma Discharge Diagnosis See above Discharge Summary Consultations Dr Verdugo Discharge Physical Examination Allergies: Coded Allergies: No Allergy Information Available (Unverified , 03/15/17) Vitals & I&Os Vital Signs Date Time Temp Pulse Resp B/P (MAP) Pulse Ox O2 Delivery O2 Flow Rate FiO2 03/19/17 07:56 Room Air 03/19/17 07:53 96.9 86 20 133/76 (95) 96 03/18/17 14:39 21 03/16/17 14:25 1.00 General Appearance: Alert, Oriented X3 Respiratory: Clear to Auscultation, Normal Air Movement Cardiovascular: Regular Rate Abdominal: Normal Bowel Sounds, Soft Neuro: Normal Speech Psych/Mental Status: Mental Status NL Hospital Course Pt is a 76yoCM who presented to the Er with CC of SOB and cough and was found to have bilateral pneumonia. He had previously been treated for pneumonia in January of this year as well. He was admitted for IV abx and improved dramatically. He will be transitioned to oral antibiotics to completed a 10 day course. He felt well and requested DC on day of discharge. He had a home oxygen qualification test and did not require oxygen for home. He is to follow up with Dr Verdugo in 2 weeks and with his PCP in 1 week. Labs (last 24 hrs) Microbiology 03/15/17 Blood Culture - Preliminary, Resulted No growth 03/16/17 MRSA Screen - Final, Complete MRSA not isolated Discharge Home Medications: Active Scripts Active Augmentin 875-125 Tablet (Amoxicillin/Potassium Clav) 1 Each Tablet 1 Each PO BID 5 Days Amlodipine Besylate 5 Mg Tablet 5 Mg PO DAILY Reported Aleve (Naproxen Sodium) 220 Mg Tablet 220-440 Mg PO Q8H PRN Mucinex D ER Tablet (Guaifenesin/Pseudoephedrne HCl) 1 Each Tab.er.12h 1 Tab PO Q12H PRN Daily Multiple Vitamin (Multivitamin) 1 Each Tablet 1 Tab PO DAILY Prilosec Otc (Omeprazole Magnesium) 20 Mg Tablet.dr 20 Mg PO DAILY Proair Hfa (Albuterol Sulfate) 1 Puff Puff 2 Puff IH Q6H PRN Lumigan (Bimatoprost) 2.5 Ml Drops 1 Drop OS HS Instructions to patient/family Please see electronic discharge instructions given to patient. Clinical Quality Measures DVT/VTE Risk/Contraindication: Risk Factor Score Per Nursin RFS Level Per Nursing on Admit: 2=Moderate Copy Copies To 1: PHIL VERDUGO DO; UMA CRISOSTOMO KATELYN M MD Mar 19, 2017 09:54
== END 2017-03-19 10:52 | disposition home or self-care (01) | DRG 194 ==
LOC: EDUNIT# 13:12 → ER 13:14 → 4TH 13:53
PROVIDERS: ADMIT Internal Medicine; ATTEND Internal Medicine
DX: J18.9 Pneumonia, unspecified organism (principal); J90 Pleural effusion, not elsewhere classified; J44.0 Chronic obstructive pulmonary disease with (acute) lower respiratory infection; J30.2 Other seasonal allergic rhinitis; K21.9 Gastro-esophageal reflux disease without esophagitis; H40.9 Unspecified glaucoma; Z87.891 Personal history of nicotine dependence
CPT/HCPCS: 36415; 71046; 71260; 80053; 83605; 83880; 85025; 87040; 87081; 94640; 94760; 94761; 96365

== ENCOUNTER → 2017-04-03 | Outpatient (CLI) | payer MEDICARE ==
[~2017-04-03] MED LIST changes: +ALBU18HF2 IH; +AMLO5TAB2 PO; +AMOX-358 PO; +BIMA2.5D4 OS; +GUAI-148 PO; +INHA1EAC; -IOHEXOL 350 MG/ML 100 ML (OMNIPAQUE 350) VIAL IV ONE; +MULT-35 PO; +NAPR220T66 PO; -NS 100 ML (IVPB) BAG IV ONE; +OMEP20TA33 PO; +PROAIR; +RT-ALBUINH IH
--- NOTE | 2017-04-03 10:55 | Diagnostic Imaging Report ---
PATIENT HISTORY: SOB HYPOXEMIA FATIGUE. Followup pneumonia. TECHNIQUE: Two views of the chest. COMPARISON: 03/15/2017 FINDINGS: There are interstitial and airspace opacities throughout the mid to lower right lung, with airspace opacities in the left lung base. These appear overall stable since the prior study. No large pleural effusion is appreciated. There is no pneumothorax. The cardiac silhouette is stable in size. A hiatal hernia is present. IMPRESSION: 1. Stable interstitial and airspace opacities in the lung bases bilaterally, left greater than right, consistent with history of pneumonia. Dictated by: Dictated on workstation # [id number]
== END ==
LOC: RAD 09:59
PROVIDERS: ATTEND Internal Medicine Critical Care Medicine
DX: J84.9 Interstitial pulmonary disease, unspecified (principal); R91.8 Other nonspecific abnormal finding of lung field; R53.83 Other fatigue
CPT/HCPCS: 71046

== ENCOUNTER 2017-04-05 17:21 | Emergency (ER) | payer MEDICARE ==
[~2017-04-05] VITALS: Ht 180.3 cm; Wt 77.1 kg
[2017-04-05] MEDS ORDERED: NS IV 1000 ML 1,000 ML IV ONE (18:04)
--- NOTE | 2017-04-05 18:13 | ED Respiratory ---
General Chief Complaint: Respiratory Problems Stated Complaint: PNEUMONIA Source: patient Exam Limitations: no limitations (CHANELL GARCIA MD) History of Present Illness Date Seen by Provider: Apr 05, 2017 Time Seen by Provider: 17:51 Initial Comments Here with report of increasing shortness of air and cough. Patient had pneumonia a couple weeks ago and was hospitalized. Completed antibiotics after outpatient course and had follow-up with his primary [facility]er, Dr. Verdugo, Sunday. Was having some decline at that time and had oxygen initiated when he was moving around or sleeping. He has that prescription at home. Reports since then has had increasing cough and shortness of breath and overall feeling worse. Denies nausea or vomiting. Denies difficulty with wound to the bathroom. Denies fevers currently. Albuterol inhaler at home is not helping. They called the lever miller office today and they were getting set up for outpatient CAT scan, labs and breathing treatment but they wouldn't be unable to give results of that until next Sunday. Ultimately in discussion with the nurse, the daughter states that the nurse mentioned going to the ER as an option to give quicker results and treatment if indicated. The daughter chose this as they will be unable to get the results. Patient agrees. Timing/Duration: week, getting worse Severity: moderate Prior Episodes/Possible Cause: occasional episodes Modifying Factors: Worse With Activity, Improves With Albuterol Inhaler, Improves With Oxygen, Improves With Rest Associated Symptoms: No chest pain/soreness, cough, No fever/chills, nasal congestion, shortness of breath, wheezing (CHANELL GARCIA MD) Allergies and Home Medications Allergies Coded Allergies: No Allergy Information Available (Unverified , 03/15/17) Home Medications Albuterol Sulfate 1 Puff Puff, 2 PUFF IH Q6H PRN for WHEEZING, (Reported) Albuterol Sulfate 2.5 Mg/3 Ml Vial.neb, 2.5 MG IH Q4H PRN for SHORTNESS OF BREATH, #30 Prescribed by: BATOOL CLOUD on 04/05/17 1405 Amlodipine Besylate 5 Mg Tablet, 5 MG PO DAILY, #30 Prescribed by: LORI GANDHI on 03/19/17 0945 Amoxicillin/Potassium Clav 1 Each Tablet, 1 EACH PO BID for 5 Days, #10 Prescribed by: LORI GANDHI on 03/19/17 0945 Bimatoprost 2.5 Ml Drops, 1 DROP OS HS, (Reported) Guaifenesin/Pseudoephedrne HCl 1 Each Tab.er.12h, 1 TAB PO Q12H PRN for CONGESTION, (Reported) Levofloxacin 750 Mg Tablet, 750 MG PO DAILY, #6 Prescribed by: BATOOL CLOUD on 04/05/17 2159 Multivitamin 1 Each Tablet, 1 TAB PO DAILY, (Reported) Naproxen Sodium 220 Mg Tablet, 220-440 MG PO Q8H PRN for PAIN-MILD, (Reported) Omeprazole Magnesium 20 Mg Tablet.dr, 20 MG PO DAILY, (Reported) Constitutional: see HPI, No chills, No fever, No weakness EENTM: no symptoms reported Respiratory: cough, short of breath, wheezing Cardiovascular: No chest pain, No edema Gastrointestinal: No abdominal pain, No nausea, No vomiting Genitourinary: no symptoms reported Musculoskeletal: no symptoms reported Skin: no symptoms reported (CHANELL GARCIA MD) All Other Systems Reviewed Negative Unless Noted: Yes (CHANELL GARCIA MD) Past Iftxmzl-Ueefmb-[place] Hx Patient Social History Alcohol Use: Denies Use Alcohol Beverage of Choice: Beer Recreational Drug Use: No Smoking Status: Former Smoker Type Used: Cigars Former Smoker, Quit: Mar 25, 1985 Recent Foreign Travel: No Contact w/Someone Who Travel: No Recent Hopitalizations: No (CHANELL GARCIA MD) Seasonal Allergies Seasonal Allergies: Yes (SEASONAL ALLERGIES) (CHANELL GARCIA MD) Surgeries History of Surgeries: Yes Surgeries: Eye Surgery (CHANELL GARCIA MD) Respiratory History of Respiratory Disorde: Yes Respiratory Disorders: Pneumonia (CHANELL GARCIA MD) Cardiovascular History of Cardiac Disorders: No (CHANELL GARCIA MD) Neurological History of Neurological Disord: No (CHANELL GARCIA MD) Genitourinary History of Genitourinary Disor: No (CHANELL GARCIA MD) Gastrointestinal History of Gastrointestinal Di: Yes Gastrointestinal Disorders: Gastroesophageal Reflux (CHANELL GARCIA MD) Musculoskeletal History of Musculoskeletal Dis: No (CHANELL GARCIA MD) Endocrine History of Endocrine Disorders: No (CHANELL GARCIA MD) HEENT History of HEENT Disorders: Yes HEENT Disorders: Glaucoma (CHANELL GARCIA MD) Cancer History of Cancer: No (CHANELL GARCIA MD) Psychosocial History of Psychiatric Problem: No (CHANELL GARCIA MD) Integumentary History of Skin or Integumenta: No (CHANELL GARCIA MD) Blood Transfusions History of Blood Disorders: No Adverse Reaction to a Blood Tr: No (CHANELL GARCIA MD) Reviewed Nursing Assessment Reviewed/Agree w Nursing PMH: Yes (CHANELL GARCIA MD) Family Medical History Significant Family History: No Pertinent Family Hx (CHANELL GARCIA MD) Physical Exam Vital Signs Vital Signs - First Documented 04/05/17 04/05/17 18:00 18:20 Temp 97.9 Pulse 93 Resp 20 B/P (MAP) 135/84 (101) Pulse Ox 94 O2 Delivery Room Air (BATOOL ARBOLEDA MD) Vital Signs Capillary Refill : (CHANELL GARCIA MD) General Appearance: WD/WN, no apparent distress HEENT: PERRL/EOMI, pharynx normal Neck: full range of motion, supple Respiratory: no respiratory distress, no accessory muscle use, decreased breath sounds, wheezing Cardiovascular: no murmur, tachycardia Gastrointestinal: non tender, soft Extremities: non-tender, normal inspection Neurologic/Psychiatric: alert, oriented x 3 Skin: normal color, warm/dry (CHANELL GARCIA MD) Focused Exam Evaluation Lactate Level Laboratory Tests 04/05/17 18:40: Lactic Acid Level 1.93 (BATOOL ARBOLEDA MD) Lactic Acid Level Laboratory Tests Test 04/05/17 18:40 Lactic Acid Level 1.93 MMOL/L (0.50-2.00) (BATOOL ARBOLEDA MD) Progress/Results/Core Measures Suspected Sepsis SIRS Temperature: Pulse: Respiratory Rate: Blood Pressure / Mean: (CHANELL GARCIA MD) Results/Orders Lab Results Laboratory Tests Test 04/05/17 17:00 04/05/17 18:27 04/05/17 18:40 Range/Units B-Type Natriuretic Peptide < 10.0 <100.0 PG/ML White Blood Count 10.7 4.3-11.0 10^3/uL Red Blood Count 4.55 4.35-5.85 10^6/uL Hemoglobin 14.5 13.3-17.7 G/DL Hematocrit 42 40-54 % Mean Corpuscular Volume 91 80-99 FL Mean Corpuscular Hemoglobin 32 25-34 PG Mean Corpuscular Hemoglobin Concent 35 32-36 G/DL Red Cell Distribution Width 12.7 10.0-14.5 % Platelet Count 355 130-400 10^3/uL Mean Platelet Volume 9.5 7.4-10.4 FL Neutrophils (%) (Auto) 76 H 42-75 % Lymphocytes (%) (Auto) 10 L 12-44 % Monocytes (%) (Auto) 12 0-12 % Eosinophils (%) (Auto) 2 0-10 % Basophils (%) (Auto) 1 0-10 % Neutrophils # (Auto) 8.2 H 1.8-7.8 X 10^3 Lymphocytes # (Auto) 1.1 1.0-4.0 X 10^3 Monocytes # (Auto) 1.3 H 0.0-1.0 X 10^3 Eosinophils # (Auto) 0.2 0.0-0.3 10^3/uL Basophils # (Auto) 0.1 0.0-0.1 10^3/uL Sodium Level 138 135-145 MMOL/L Potassium Level 4.4 3.6-5.0 MMOL/L Chloride Level 105 98-107 MMOL/L Carbon Dioxide Level 22 21-32 MMOL/L Anion Gap 11 5-14 MMOL/L Blood Urea Nitrogen 21 H 7-18 MG/DL Creatinine 1.07 0.60-1.30 MG/DL Estimat Glomerular Filtration Rate > 60 BUN/Creatinine Ratio 20 Glucose Level 101 70-105 MG/DL Calcium Level 10.5 H 8.5-10.1 MG/DL Total Bilirubin 0.5 0.1-1.0 MG/DL Aspartate Amino Transf (AST/SGOT) 16 5-34 U/L Alanine Aminotransferase (ALT/SGPT) 19 0-55 U/L Alkaline Phosphatase 100 40-136 U/L C-Reactive Protein High Sensitivity 0.27 0.00-0.50 MG/DL Total Protein 7.3 6.4-8.2 GM/DL Albumin 3.8 3.2-4.5 GM/DL Lactic Acid Level 1.93 0.50-2.00 MMOL/L (BATOOL ARBOLEDA MD) My Orders Orders - BATOOL ARBOLEDA MD BNP (04/05/17 18:55) Ct Angio Chest W (04/05/17 19:44) Iohexol Injection (Omnipaque 350 Mg/Ml 1 (04/05/17 20:00) Sodium Chloride Flush (Catheter Flush Sy (04/05/17 20:00) Ns (Ivpb) (Sodium Chloride 0.9%) (04/05/17 20:00) Pharmacy Communication (Pharmacy Communi (04/05/17 19:48) Levofloxacin 750 Mg/150 Ml Iv (Levaquin (04/05/17 20:45) Albuterol/Ipra Inhalation Soln (Duoneb I (04/05/17 21:30) Svn Sm Volume Nebulizer Rt-Rfs (04/05/17 21:22) Sputum Culture (04/05/17 22:00) (BATOOL ARBOLEDA MD) Medications Given in ED Current Medications Medications Dose Ordered Sig/Frantz Route Start Time Stop Time Status Last Admin Dose Admin Albuterol/ Ipratropium 3 ml ONCE ONCE INH 04/05/17 18:15 04/05/17 18:16 DC 04/05/17 18:16 3 ML Albuterol/ Ipratropium 3 ml ONCE ONCE INH 04/05/17 21:30 04/05/17 21:31 DC 04/05/17 21:37 3 ML Iohexol 150 ml ONCE ONCE IV 04/05/17 20:00 04/05/17 20:01 DC 04/05/17 20:05 125 ML Levofloxacin/ Dextrose 150 ml @ 100 mls/hr ONCE ONCE IV 04/05/17 20:45 04/05/17 22:14 DC 04/05/17 21:15 100 MLS/HR Sodium Chloride 10 ml NEEDED PRN IV 04/05/17 20:00 04/05/17 22:14 DC 04/05/17 20:05 10 ML Sodium Chloride 250 ml ONCE ONCE IV 04/05/17 20:00 04/05/17 20:01 DC 04/05/17 20:05 80 ML Sodium Chloride 1,000 ml @ 0 mls/hr Q0M ONCE IV 04/05/17 18:04 04/05/17 18:06 DC 04/05/17 18:45 0 MLS/HR (BATOOL ARBOLEDA MD) Vital Signs/I&O Vital Sign - Last 12Hours 04/05/17 04/05/17 04/05/17 18:00 18:20 21:38 Temp 97.9 Pulse 93 Resp 20 B/P (MAP) 135/84 (101) Pulse Ox 94 97 97 O2 Delivery Room Air Room Air Intake and Output 04/06/17 00:00 Intake Total 1000 ml Balance 1000 ml (BATOOL ARBOLEDA MD) Vital Signs/I&O Capillary Refill : (CHANELL GARCIA MD) Progress Note : Progress Note Seen and evaluated. IV, labs, chest x-ray and normal saline 1 L bolus ordered. Duo neb ordered. We will get CT scan after labs to determine possibility of contrast versus noncontrast scan. Case checked out to Dr. Cloud pending all labs. We will order CT based on results. (CHANELL GARCIA MD) Progress Note #1: Time: 19:13 Progress Note This patient was assumed from Dr. Garcia at shift change. Labs have been reviewed. BNP has been added due to the cardiomegaly, vascular congestion and effusion. There is no evidence of infection based on labs and vitals. CT angiogram will be pursued at this point as renal function is normal. Selection of imaging study was discussed with Dr. Verdugo prior to ordering. Progress Note #2: Time: 19:[address] scan suggested persistent pneumonia. Levaquin was ordered. Progress Note #3: Time: 21:43 Progress Note Patient did receive the CT scan. No evidence of pulmonary embolus was identified. Patient does have bilateral infiltrate possibly superimposed on chronic lung disease. Findings were discussed with Dr. Verdugo. Refill continuing antibiotics at this time is the best approach. Patient is receiving Levaquin 750 mg IV at present and will continue on another 6 days after dismissal. He is to follow-up with Dr. Verdugo next week. He is receiving a second DuoNeb treatment and a sputum culture prior to dismissal. (BATOOL ARBOLEDA MD) Diagnostic Imaging Diagonstic Imaging: Xray Plain Films/CT/US/NM/MRI: chest Comments Chest x-ray viewed by me, compared with prior, and report reviewed. See report below: NAME: TIFFANIE BOLAND [facility] REC#: [id number] PT STATUS: REG ER : 1940 PHYSICIAN: CHANELL GARCIA MD ADMIT DATE: 04/05/17/ER Signed Date of Exam: 04/05/17 CHEST PA/LAT (2 VIEW) INDICATION: Pneumonia with cough and weakness. Comparison is made with prior examination from 04/03/2017. FINDINGS: There is cardiomegaly. There are persistent bibasilar infiltrates, left greater than right. Small bilateral pleural effusions cannot be excluded. There is no pneumothorax. Mediastinum is unremarkable. There is some venous congestion. IMPRESSION: Persistent bibasilar infiltrates, left greater than right, with small bilateral pleural effusions. Cardiomegaly and mild central pulmonary venous congestion Dictated by: Dictated on workstation # [id number] Dict: 04/05/171849 Trans: 04/05/171857 Interpreted by: SYLVAIN CURRY MD Electronically signed by: SYLVAIN CURRY MD 04/05/171857 Diagonstic Imaging: CT Plain Films/CT/US/NM/MRI: chest Comments CT chest viewed by me and report reviewed. Discussed with Dr. Verdugo. See report below: NAME: TIFFANIE BOLAND [facility] REC#: [id number] PT STATUS: REG ER : 1940 PHYSICIAN: BATOOL ARBOLEDA MD ADMIT DATE: 04/05/17/ER Draft Date of Exam:04/05/17 CT ANGIO CHEST W PROCEDURE: CT angiography of the chest with contrast. TECHNIQUE: Multiple contiguous axial images were obtained through the chest after uneventful bolus administration of intravenous contrast. Reconstructed CTA MIP acquisitions were also performed. INDICATION: Patient has pneumonia, cough, weakness. Increasing shortness of air over the past couple of days. CORRELATION STUDY: Recent examinations including CT chest 03/18/2017 and chest radiograph 04/05/2017. FINDINGS: Heart size enlarged. Slight prominent appearance about the ascending aorta with a maximum dimension of 3.4 cm. No intraluminal filling defect. Coronary artery calcification is present. Pulmonary arterial tree is somewhat obscured on the peripheral branches. Definitive pulmonary embolism, however, does not appear to be present. There are prominent in number mediastinal lymph nodes not currently considered pathologically enlarged. Moderate-sized hiatal hernia present. Lung contreras demonstrate rather prominent interstitial markings to be demonstrated diffusely. There is continued rather significant consolidation about the left lower lobe and right lower lobe. The severity of consolidation does appear to be slightly increased within the right lower lobe. Interstitial markings overall slightly increased while could reflect a component of edema versus interstitial infiltrate. Visualized portion of the upper abdomen demonstrates a gallstone. Vertebral body sclerotic foci T11 level unchanged. IMPRESSION: 1. No definitive evidence for pulmonary embolism. However, peripheral pulmonary arteries are limited in evaluation. 2. Extensive left lower lobe and lingular infiltrate as well as right lower lobe infiltrate persisting. Findings do appear to be slightly increased involving the right lung base. Findings appear to be superimposed on chronic lung disease. 3. Interstitial prominence appears progressed from prior study, could be reflective of component of interstitial infiltrate. 4. Likely reactive lymph nodes. Dictated on workstation # [id number] Dict: 04/05/172010 Trans: 04/05/172022 [facility] [id number] Interpreted by: PRINCE SHEPPARD DO (BATOOL ARBOLEDA MD) Departure Impression Impression: Primary Impression: Bilateral pneumonia Qualified Codes: J18.9 - Pneumonia, unspecified organism Additional Impressions: Hypoxemia Bronchospasm Disposition: 01 HOME, SELF-CARE Condition: Improved Departure-Patient Inst. Decision time for Depature: 21:30 (ABTOOL ARBOLEDA MD) Referrals: UMA CRISOSTOMO DO (PCP/Family) Primary Care Physician Patient Instructions: Pneumonia, Adult (DC) Add. Discharge Instructions: Complete your antibiotics as prescribed. Take your next dose tomorrow evening. Call Dr. Verdugo's office tomorrow morning and schedule follow-up for next week. Tonight you may use your inhaler up to 4 puffs and a four-hour period of time. Return to care if symptoms worsen. Continue to use her oxygen when sleeping and with activity. All discharge instructions reviewed with patient and/or family. Voiced understanding. Scripts Albuterol Sulfate (Albuterol Sulfate) 2.5 Mg/3 Ml Vial.neb 2.5 MG IH Q4H Y for SHORTNESS OF BREATH, #30 EA Prov: BATOOL ARBOLEDA MD 04/05/17 Levofloxacin (Levaquin) 750 Mg Tablet 750 MG PO DAILY, #6 TAB Prov: BATOOL ARBOLEDA MD 04/05/17 Copy Copies To 1: UMA CRISOSTOMO DO Copies To 2: PHIL VERDUGO TIMOTHY D MD Apr 05, 2017 18:13 BATOOL ARBOLEDA MD Apr 05, 2017 19:15
[2017-04-05] MEDS ORDERED: RT-ALBUTEROL/IPRATROPIUM 3 ML (DUONEB) VIAL INH ONE ×2 (18:15→21:30)
[2017-04-05 18:36] LABS: BASOPHILS # (AUTO) 0.1 10^3/uL (0.0-0.1); BASOPHILS % (AUTO) 1 % (0-10); EOSINOPHILS # (AUTO) 0.2 10^3/uL (0.0-0.3); EOSINOPHILS % (AUTO) 2 % (0-10); HEMATOCRIT 42 % (40-54); HEMOGLOBIN 14.5 G/DL (13.3-17.7); LYMPHOCYTES # (AUTO) 1.1 X 10^3 (1.0-4.0); LYMPHOCYTES % (AUTO) 10 % (12-44); MEAN CORPUSCULAR HEMOGLOBIN 32 PG (25-34); MEAN CORPUSCULAR HGB CONC 35 G/DL (32-36); MEAN CORPUSCULAR VOLUME 91 FL (80-99); MEAN PLATELET VOLUME 9.5 FL (7.4-10.4); MONOCYTES # (AUTO) 1.3 X 10^3 (0.0-1.0); MONOCYTES % (AUTO) 12 % (0-12); NEUTROPHILS # (AUTO) 8.2 X 10^3 (1.8-7.8); NEUTROPHILS % (AUTO) 76 % (42-75); PLATELET COUNT 355 10^3/uL (130-400); RED BLOOD COUNT 4.55 10^6/uL (4.35-5.85); RED CELL DISTRIBUTION WIDTH 12.7 % (10.0-14.5); WHITE BLOOD COUNT 10.7 10^3/uL (4.3-11.0)
--- NOTE | 2017-04-05 18:57 | Diagnostic Imaging Report ---
INDICATION: Pneumonia with cough and weakness. Comparison is made with prior examination from 04/03/2017. FINDINGS: There is cardiomegaly. There are persistent bibasilar infiltrates, left greater than right. Small bilateral pleural effusions cannot be excluded. There is no pneumothorax. Mediastinum is unremarkable. There is some venous congestion. IMPRESSION: Persistent bibasilar infiltrates, left greater than right, with small bilateral pleural effusions. Cardiomegaly and mild central pulmonary venous congestion Dictated by: Dictated on workstation # [id number]
[2017-04-05 19:02] LABS: ALANINE AMINOTRANSFERASE 19 U/L (0-55); ALBUMIN 3.8 GM/DL (3.2-4.5); ALKALINE PHOSPHATASE 100 U/L (40-136); BILIRUBIN,TOTAL 0.5 MG/DL (0.1-1.0); BUN/CREATININE RATIO 20; CALCIUM 10.5 MG/DL (8.5-10.1); CARBON DIOXIDE 22 MMOL/L (21-32); CHLORIDE 105 MMOL/L (98-107); CREATININE SERUM 1.07 MG/DL (0.60-1.30); GFR ESTIMATED > 60; GLUCOSE 101 MG/DL (70-105); POTASSIUM 4.4 MMOL/L (3.6-5.0); SODIUM 138 MMOL/L (135-145); TOTAL PROTEIN 7.3 GM/DL (6.4-8.2)
[2017-04-05] MEDS ORDERED: NS 250 ML (IVPB) BAG IV ONE (20:00)
[2017-04-05] MEDS ORDERED: IOHEXOL 350 MG/ML 150 ML (OMNIPAQUE 350) VIAL IV ONE (20:00)
[2017-04-05] MEDS ORDERED: CATHETER FLUSH 10 ML SYR IV PRN (20:00)
--- NOTE | 2017-04-05 20:24 | Diagnostic Imaging Report ---
PROCEDURE: CT angiography of the chest with contrast. TECHNIQUE: Multiple contiguous axial images were obtained through the chest after uneventful bolus administration of intravenous contrast. Reconstructed CTA MIP acquisitions were also performed. INDICATION: Patient has pneumonia, cough, weakness. Increasing shortness of air over the past couple of days. CORRELATION STUDY: Recent examinations including CT chest 03/18/2017 and chest radiograph 04/05/2017. FINDINGS: Heart size enlarged. Slight prominent appearance about the ascending aorta with a maximum dimension of 3.4 cm. No intraluminal filling defect. Coronary artery calcification is present. Pulmonary arterial tree is somewhat obscured on the peripheral branches. Definitive pulmonary embolism, however, does not appear to be present. There are prominent in number mediastinal lymph nodes not currently considered pathologically enlarged. Moderate-sized hiatal hernia present. Lung contreras demonstrate rather prominent interstitial markings to be demonstrated diffusely. There is continued rather significant consolidation about the left lower lobe and right lower lobe. The severity of consolidation does appear to be slightly increased within the right lower lobe. Interstitial markings overall slightly increased while could reflect a component of edema versus interstitial infiltrate. Visualized portion of the upper abdomen demonstrates a gallstone. Vertebral body sclerotic foci T11 level unchanged. IMPRESSION: 1. No definitive evidence for pulmonary embolism. However, peripheral pulmonary arteries are limited in evaluation. 2. Extensive left lower lobe and lingular infiltrate as well as right lower lobe infiltrate persisting. Findings do appear to be slightly increased involving the right lung base. Findings appear to be superimposed on chronic lung disease. 3. Interstitial prominence appears progressed from prior study, could be reflective of component of interstitial infiltrate. 4. Likely reactive lymph nodes. Dictated by: Dictated on workstation # [id number]
[2017-04-05] MEDS ORDERED: LEVOFLOXACIN 750 MG/150 ML IV 150 ML IV ONE (20:45)
[2017-04-05] MEDS ORDERED: ALBU2.5V4 IH (21:59)
[2017-04-05] MEDS ORDERED: LEVO750T9 PO (21:59)
[2017-04-05 22:14] VITALS: BP 128/76
== END 2017-04-05 22:14 | disposition home or self-care (01) ==
LOC: EDUNIT# 17:21 → ER 17:22
DX: J18.9 Pneumonia, unspecified organism (principal); J98.01 Acute bronchospasm; K21.9 Gastro-esophageal reflux disease without esophagitis; Z87.891 Personal history of nicotine dependence; Z87.01 Personal history of pneumonia (recurrent)
CPT/HCPCS: 36415; 71046; 71275; 80053; 83605; 83880; 85025; 86141; 87040; 87070; 87205; 94640; 96361; 96365

== ENCOUNTER 2017-04-17 12:07 | Outpatient (CLI) | payer MEDICARE ==
[~2017-04-17] VITALS: Ht 188 cm; Wt 91.2 kg
[~2017-04-17 12:07] MED LIST changes: -ALB0.5V IH
[2017-04-17] MEDS ORDERED: AMLO5TAB2 PO (13:40)
[2017-04-17] MEDS ORDERED: ALB0.5V IH (13:40)
== END 2017-04-17 13:44 ==
LOC: PREOP 12:07
PROVIDERS: ATTEND Internal Medicine Critical Care Medicine
DX: Z01.818 Encounter for other preprocedural examination (principal); R91.8 Other nonspecific abnormal finding of lung field

== ENCOUNTER → 2017-04-17 | Outpatient (CLI) | payer MEDICARE ==
[~2017-04-17] MED LIST changes: +ALB0.5V IH; +ALBU2.5V4 IH; +LEVO750T9 PO
[2017-04-17 11:27] LABS: BASOPHILS # (AUTO) 0.1 10^3/uL (0.0-0.1); BASOPHILS % (AUTO) 1 % (0-10); EOSINOPHILS # (AUTO) 0.3 10^3/uL (0.0-0.3); EOSINOPHILS % (AUTO) 2 % (0-10); HEMATOCRIT 42 % (40-54); HEMOGLOBIN 14.4 G/DL (13.3-17.7); LYMPHOCYTES # (AUTO) 0.9 X 10^3 (1.0-4.0); LYMPHOCYTES % (AUTO) 8 % (12-44); MEAN CORPUSCULAR HEMOGLOBIN 32 PG (25-34); MEAN CORPUSCULAR HGB CONC 35 G/DL (32-36); MEAN CORPUSCULAR VOLUME 92 FL (80-99); MEAN PLATELET VOLUME 9.1 FL (7.4-10.4); MONOCYTES # (AUTO) 1.2 X 10^3 (0.0-1.0); MONOCYTES % (AUTO) 10 % (0-12); NEUTROPHILS # (AUTO) 9.6 X 10^3 (1.8-7.8); NEUTROPHILS % (AUTO) 79 % (42-75); PLATELET COUNT 343 10^3/uL (130-400); RED BLOOD COUNT 4.54 10^6/uL (4.35-5.85); RED CELL DISTRIBUTION WIDTH 12.8 % (10.0-14.5); WHITE BLOOD COUNT 12.1 10^3/uL (4.3-11.0)
[2017-04-17 11:49] LABS: ALANINE AMINOTRANSFERASE 23 U/L (0-55); ALKALINE PHOSPHATASE 108 U/L (40-136); BILIRUBIN,TOTAL 0.4 MG/DL (0.1-1.0); BUN/CREATININE RATIO 25; CALCIUM 10.5 MG/DL (8.5-10.1); CARBON DIOXIDE 24 MMOL/L (21-32); CHLORIDE 106 MMOL/L (98-107); CREATININE SERUM 1.11 MG/DL (0.60-1.30); GFR ESTIMATED > 60; GLUCOSE 95 MG/DL (70-105); POTASSIUM 4.5 MMOL/L (3.6-5.0); SODIUM 139 MMOL/L (135-145); TOTAL PROTEIN 7.4 GM/DL (6.4-8.2)
== END ==
LOC: LAB 11:06
PROVIDERS: ATTEND Nurse Practitioner Family
DX: J84.9 Interstitial pulmonary disease, unspecified (principal)
CPT/HCPCS: 36415; 80053; 83880; 85025

== ENCOUNTER 2017-04-30 10:38 | Inpatient (IN) | payer MEDICARE ==
[~2017-04-30] VITALS: Ht 188 cm; Wt 93.0 kg
[~2017-04-30 10:38] MED LIST changes: +ALB0.5V IH
--- NOTE | 2017-04-30 11:05 | ED Cough/URI ---
General Chief Complaint: Respiratory Problems Stated Complaint: DIFFICULTY BREATHING-DX WITH PNEUMONIA Source: patient Exam Limitations: no limitations History of Present Illness Date Seen by Provider: Apr 30, 2017 Time Seen by Provider: 11:03 Initial Comments Brought to the emergency room by his daughter with reports of shortness of breath cough and fever. She has had ongoing bilateral lower lobe pneumonia for about 2-3 months. He had a bronchoscopy done with pulmonology Dr. Verdugo on April 18. He finished Omnicef antibiotics on Sunday 3-4 days ago. This weekend his chills, shortness of breath, general fatigue and malaise returned. Daughter states they are awaiting an appointment at the [facility]. Timing/Duration: constant, getting worse Severity/Quality: moderate Associated Symptoms: cough Allergies and Home Medications Allergies Coded Allergies: No Known Drug Allergies (Unverified , 04/17/17) Home Medications Albuterol Sulfate 1 Puff Puff, 2 PUFF IH Q6H PRN for WHEEZING, (Reported) Albuterol Sulfate 2.5 Mg/0.5 Ml Vial.neb, 2.5 MG IH Q4H, (Reported) Amlodipine Besylate 5 Mg Tablet, 5 MG PO DAILY, (Reported) Bimatoprost 2.5 Ml Drops, 1 DROP OS HS, (Reported) Guaifenesin/Pseudoephedrne HCl 1 Each Tab.er.12h, 1 TAB PO Q12H PRN for CONGESTION, (Reported) Multivitamin 1 Each Tablet, 1 TAB PO DAILY, (Reported) Naproxen Sodium 220 Mg Tablet, 220-440 MG PO Q8H PRN for PAIN-MILD, (Reported) Omeprazole Magnesium 20 Mg Tablet.dr, 20 MG PO DAILY, (Reported) Patient Home Medication List Home Medication List Reviewed: Yes Constitutional: see HPI, chills, malaise, weakness EENTM: see HPI Respiratory: see HPI, cough, short of breath Cardiovascular: no symptoms reported Genitourinary: no symptoms reported Musculoskeletal: no symptoms reported Skin: no symptoms reported Psychiatric/Neurological: No Symptoms Reported Hematologic/Lymphatic: No Symptoms Reported Immunological/Allergic: no symptoms reported Past Qcagcvr-Apawjm-Muajqk Hx Patient Social History Alcohol Beverage of Choice: Beer Type Used: Cigars Former Smoker, Quit: Mar 25, 1985 Recent Foreign Travel: No Contact w/Someone Who Travel: No Recent Hopitalizations: No Seasonal Allergies Seasonal Allergies: Yes (SEASONAL ALLERGIES) Surgeries History of Surgeries: Yes Surgeries: Eye Surgery, Tonsillectomy Respiratory History of Respiratory Disorde: Yes Respiratory Disorders: Pneumonia Cardiovascular History of Cardiac Disorders: No Neurological History of Neurological Disord: No Genitourinary History of Genitourinary Disor: No Gastrointestinal History of Gastrointestinal Di: Yes Gastrointestinal Disorders: Gastroesophageal Reflux Musculoskeletal History of Musculoskeletal Dis: No Endocrine History of Endocrine Disorders: No HEENT History of HEENT Disorders: Yes HEENT Disorders: Glaucoma Cancer History of Cancer: No Psychosocial History of Psychiatric Problem: No Integumentary History of Skin or Integumenta: No Blood Transfusions History of Blood Disorders: No Adverse Reaction to a Blood Tr: No Family Medical History Significant Family History: No Pertinent Family Hx Physical Exam Vital Signs Vital Signs - First Documented 04/30/17 10:59 Temp 98.6 Pulse 95 Resp 18 B/P (MAP) 142/80 (100) Pulse Ox 98 O2 Delivery Nasal Cannula O2 Flow Rate 3.00 Capillary Refill : General Appearance: WD/WN, no apparent distress Eyes: Bilateral Eye Normal Inspection, Bilateral Eye PERRL, Bilateral Eye EOMI HEENT: PERRL/EOMI, normal ENT inspection Neck: non-tender, full range of motion Respiratory: no respiratory distress, no accessory muscle use, crackles ( bilateral bases oxygen saturation 90% on room air. Daughter states that he wears oxygen at 3 L [id number] at home so I did apply oxygen.) Cardiovascular: regular rate, rhythm, no murmur Gastrointestinal: normal bowel sounds, non tender Extremities: normal range of motion, non-tender Neurologic/Psychiatric: alert, normal mood/affect, oriented x 3 Skin: normal color, warm/dry Focused Exam Evaluation Lactate Level Laboratory Tests 04/30/17 11:21: Lactic Acid Level 0.92 Lactic Acid Level Laboratory Tests Test 04/30/17 11:21 Lactic Acid Level 0.92 MMOL/L (0.50-2.00) Progress/Results/Core Measures Suspected Sepsis SIRS Temperature: Pulse: Respiratory Rate: Laboratory Tests 04/30/17 11:06: White Blood Count 15.7H Blood Pressure / Mean: Laboratory Tests 04/30/17 11:21: Lactic Acid Level 0.92 Laboratory Tests 04/30/17 11:06: Creatinine 1.41H, Platelet Count 346, Total Bilirubin 1.0 Results/Orders Lab Results Laboratory Tests Test 04/30/17 11:06 04/30/17 11:21 Range/Units White Blood Count 15.7 H 4.3-11.0 10^3/uL Red Blood Count 4.57 4.35-5.85 10^6/uL Hemoglobin 14.6 13.3-17.7 G/DL Hematocrit 41 40-54 % Mean Corpuscular Volume 90 80-99 FL Mean Corpuscular Hemoglobin 32 25-34 PG Mean Corpuscular Hemoglobin Concent 36 32-36 G/DL Red Cell Distribution Width 12.6 10.0-14.5 % Platelet Count 346 130-400 10^3/uL Mean Platelet Volume 9.6 7.4-10.4 FL Neutrophils (%) (Auto) 83 H 42-75 % Lymphocytes (%) (Auto) 3 L 12-44 % Monocytes (%) (Auto) 13 H 0-12 % Eosinophils (%) (Auto) 0 0-10 % Basophils (%) (Auto) 0 0-10 % Neutrophils # (Auto) 13.1 H 1.8-7.8 X 10^3 Lymphocytes # (Auto) 0.5 L 1.0-4.0 X 10^3 Monocytes # (Auto) 2.1 H 0.0-1.0 X 10^3 Eosinophils # (Auto) 0.0 0.0-0.3 10^3/uL Basophils # (Auto) 0.0 0.0-0.1 10^3/uL Neutrophils % (Manual) 85 % Lymphocytes % (Manual) 5 % Monocytes % (Manual) 9 % Eosinophils % (Manual) 0 % Basophils % (Manual) 0 % Band Neutrophils 1 % Blood Morphology Comment NORMAL Sodium Level 135 135-145 MMOL/L Potassium Level 4.5 3.6-5.0 MMOL/L Chloride Level 100 98-107 MMOL/L Carbon Dioxide Level 27 21-32 MMOL/L Anion Gap 8 5-14 MMOL/L Blood Urea Nitrogen 25 H 7-18 MG/DL Creatinine 1.41 H 0.60-1.30 MG/DL Estimat Glomerular Filtration Rate 49 BUN/Creatinine Ratio 18 Glucose Level 114 H 70-105 MG/DL Calcium Level 10.9 H 8.5-10.1 MG/DL Total Bilirubin 1.0 0.1-1.0 MG/DL Aspartate Amino Transf (AST/SGOT) 29 5-34 U/L Alanine Aminotransferase (ALT/SGPT) 38 0-55 U/L Alkaline Phosphatase 136 40-136 U/L Total Protein 8.0 6.4-8.2 GM/DL Albumin 4.0 3.2-4.5 GM/DL Lactic Acid Level 0.92 0.50-2.00 MMOL/L My Orders Orders - SOLE ZIMMERMAN APRN Cbc With Automated Diff (04/30/17 10:55) Comprehensive Metabolic Panel (04/30/17 10:55) Blood Culture (04/30/17 10:55) Chest 1 View, Ap/Pa Only (04/30/17 10:55) Saline Lock/Iv-Start (04/30/17 10:55) Lactic Acid Analyzer (04/30/17 10:55) Manual Differential (04/30/17 11:06) Piperacillin Sodium/Tazobactam (Zosyn Vi (04/30/17 11:45) Vital Signs/I&O Vital Sign - Last 12Hours 04/30/17 10:59 Temp 98.6 Pulse 95 Resp 18 B/P (MAP) 142/80 (100) Pulse Ox 98 O2 Delivery Nasal Cannula O2 Flow Rate 3.00 Capillary Refill : Departure Communication (Admissions) Time/Spoke to Admitting Phy: 12:00 Communication I spoke with Dr Briseno. Will admit, zosyn. pt meets severe sepsis criteria with the myles, hr >90, leukocytosis. However, MAP >65 and lactic acid normal so no need for fluid bolus. Impression Impression: Primary Impression: Pneumonia Additional Impression: Sepsis Disposition: 09 ADMITTED INPATIENT Condition: Stable Admissions Decision to Admit Reason: Admit from ER (General) Decision to Admit/Date: Apr 30, 2017 Time/Decision to Admit Time: 12:00 Departure-Patient Inst. Referrals: UMA CRISOSTOMO DO (PCP/Family) Primary Care Physician SOLE ZIMMERMAN APRN Apr 30, 2017 11:05
[2017-04-30 11:17] LABS: BASOPHILS % (AUTO) 0 % (0-10); EOSINOPHILS % (AUTO) 0 % (0-10); HEMATOCRIT 41 % (40-54); HEMOGLOBIN 14.6 G/DL (13.3-17.7); LYMPHOCYTES # (AUTO) 0.5 X 10^3 (1.0-4.0); LYMPHOCYTES % (AUTO) 3 % (12-44); MEAN CORPUSCULAR HEMOGLOBIN 32 PG (25-34); MEAN CORPUSCULAR HGB CONC 36 G/DL (32-36); MEAN CORPUSCULAR VOLUME 90 FL (80-99); MEAN PLATELET VOLUME 9.6 FL (7.4-10.4); MONOCYTES # (AUTO) 2.1 X 10^3 (0.0-1.0); MONOCYTES % (AUTO) 13 % (0-12); NEUTROPHILS # (AUTO) 13.1 X 10^3 (1.8-7.8); NEUTROPHILS % (AUTO) 83 % (42-75); PLATELET COUNT 346 10^3/uL (130-400); RED BLOOD COUNT 4.57 10^6/uL (4.35-5.85); RED CELL DISTRIBUTION WIDTH 12.6 % (10.0-14.5); WHITE BLOOD COUNT 15.7 10^3/uL (4.3-11.0)
[2017-04-30 11:36] LABS: CALCIUM 10.9 MG/DL (8.5-10.1); CREATININE SERUM 1.41 MG/DL (0.60-1.30); POTASSIUM 4.5 MMOL/L (3.6-5.0)
[2017-04-30 11:41] LABS: BAND NEUTROPHILS 1 %; BASOPHILS % (MANUAL) 0 %; EOSINOPHILS % (MANUAL) 0 %; LYMPHOCYTES % (MANUAL) 5 %; MONOCYTES % (MANUAL) 9 %; NEUTROPHILS % (MANUAL) 85 %
[2017-04-30 11:42] LABS: RBC MORPH NORMAL
[2017-04-30] MEDS ORDERED: PIPERACILLIN SODIUM/TAZOBACTAM 4.5 GM in NS (IVPB) 100 ML IV ONE (11:45)
--- NOTE | 2017-04-30 11:56 | Diagnostic Imaging Report ---
INDICATION: Difficulty breathing. TIME OF EXAMINATION: 11:12 AM. COMPARISON: 04/18/2017. FINDINGS: The heart size is stable. Bilateral parenchymal densities are similar to perhaps slightly increased when compared with the prior exam. In particular, there appears to be some increasing consolidation in the left base. Both costophrenic angles remain blunted, suggestive of small effusions. No pneumothorax is seen. IMPRESSION: Bilateral parenchymal infiltrates and effusions, stable to perhaps slightly increased when compared to the examination from 04/18/2017. Dictated by: Dictated on workstation # [id number]
[2017-04-30] MEDS ORDERED: BENZONATATE 100 MG (TESSALON) CAPSULE PO PRN (13:15)
[2017-04-30] MEDS ORDERED: ANTACID SUSP 30 ML UDC (MYLANTA) PO PRN (13:15)
[2017-04-30] MEDS ORDERED: MILK OF MAGNESIA 400 MG/5 ML 30 ML UDC PO PRN (13:15)
[2017-04-30] MEDS ORDERED: KETOROLAC 30 MG/ML VIAL IVP ONE (13:30)
[2017-04-30 13:35] VITALS: BP 120/71
[2017-04-30] MEDS ORDERED: FLUT16SP22 NSEACH (14:00)
[2017-04-30] MEDS ORDERED: PATIENT MAY USE OWN MED,SINGLE MED PO SCH ×2 (14:15→15:00)
--- NOTE | 2017-04-30 14:25 | History & Physical-Hospitalist ---
History of Present Illness HPI/Chief Complaint Pt is a 76yoCM with a PMH of HTN and recurrent pneumonias who presented to the ER with CC of SOB. He reports he has been dealing with multiple episodes of pneumonia since and was admitted her in early March for pneumonia as well. He has since follow up with Dr Verdugo and underwent bronchoscopy on 04/18 which his daughter reports was "normal." He completed Omnicef on 04/28 and then shortly after began to feel sick again. He had poor appetite, clear/white sputum and SOB. He has 25 steps to walk up at his apartment and was becoming very dyspneic. He also started to have pain with deep breathes prompting him to seek evaluation in the ER. His daughter states he has lost 10lbs since with this. She is also concerned he has asbestosis from his years of working in [employer]. Source: patient Exam Limitations: no limitations Date Seen 04/30/17 Time Seen by Provider: 14:16 Attending Physician Lori Briseno MD PCP Pedro Mckeon DO Referring Physician Date of Admission Apr 30, 2017 at 12:06 pm Home Medications & Allergies Home Medications Reviewed patient Home Medication Reconciliation performed by pharmacy medication reconciliations certified medication technician and/or nursing. Patients Allergies have been reviewed. Allergies Allergies Coded Allergies No Known Drug Allergies (Unverified04/30/17) Past Katoype-Qnhpsa-Mxqcgo Hx Past Med/Social Hx: Reviewed Nursing Past Med/Soc Hx Patient Social History Employed/Student: employed Alcohol Use: Rarely Uses Number of Drinks Today: AA Alcohol Beverage of Choice: Beer Recreational Drug Use: No Smoking Status: Former Smoker Former Smoker, Quit: Mar 25, 1985 Type Used: Cigars Recent Foreign Travel: No Contact w/other who traveled: No Recent Hopitalizations: No Recent Infectious Disease Expo: No Seasonal Allergies Seasonal Allergies: Yes (SEASONAL ALLERGIES) Past Medical History Surgeries: Eye Surgery, Tonsillectomy Respiratory: COPD, Pneumonia Cardiac: Hypertension Gastrointestinal: Gastroesophageal Reflux HEENT: Glaucoma History of Blood Disorders: No Adverse Reaction to Blood [place]: No Family History Cancer (dad-leukemia) Review of Systems Constitutional: chills, fever, weight loss EENTM: No blurred vision, No double vision, No nose congestion, No throat pain Respiratory: cough, dyspnea on exertion, No hemoptysis, phlegm, short of breath , No wheezing Cardiovascular: No chest pain, No edema, No palpitations Gastrointestinal: No abdominal pain, No constipation, No diarrhea, No nausea, No vomiting Genitourinary: No dysuria, No frequency Musculoskeletal: No joint pain, No muscle pain Skin: No lesions, No rash Psychiatric/Neurological: Denies Emotional Problems, Denies Headache, Denies Numbness, Denies Tingling All Other Systems Reviewed Negative Unless Noted: Yes (Negative excepted noted.) Physical Exam Physical Exam Vital Signs Vital Signs - First Documented 04/30/17 10:59 Temp 98.6 Pulse 95 Resp 18 B/P (MAP) 142/80 (100) Pulse Ox 98 O2 Delivery Nasal Cannula O2 Flow Rate 3.00 Capillary Refill : Less Than 3 Seconds General Appearance: No Apparent Distress, WD/WN HEENT: PERRL/EOMI, Moist Mucous Membranes Neck: Non Tender, Supple, No JVD, No Thyromegaly Respiratory: No Respiratory Distress, Decreased Breath Sounds (left lower lobe) , No Wheezing Cardiovascular: Regular Rate, Rhythm, No Murmur Gastrointestinal: Normal Bowel Sounds, Non Tender, Soft Extremity: Normal Capillary Refill, No Calf Tenderness, No Pedal Edema, Calf Tenderness Neurologic/Psychiatric: Alert, Oriented x3, No Motor/Sensory Deficits, Normal Mood/Affect Skin: Normal Color, Warm/Dry Results Results/Procedures Labs Laboratory Tests 04/30/17 11:06 Patient resulted labs reviewed. Imaging: Reviewed Imaging Films Imaging Date of Exam: 04/30/17 CHEST 1 VIEW, AP/PA ONLY INDICATION: Difficulty breathing. TIME OF EXAMINATION: 11:12 AM. COMPARISON: 04/18/2017. FINDINGS: The heart size is stable. Bilateral parenchymal densities are similar to perhaps slightly increased when compared with the prior exam. In particular, there appears to be some increasing consolidation in the left base. Both costophrenic angles remain blunted, suggestive of small effusions. No pneumothorax is seen. IMPRESSION: Bilateral parenchymal infiltrates and effusions, stable to perhaps slightly increased when compared to the examination from 04/18/2017. Assessment/Plan Admission Diagnosis Sepsis Admission Status: Inpatient Order (span 2 midnights) Reason for Inpatient Admission: PNA-failed outpatient abx Diagnosis/Problems Diagnosis/Problems (1) Sepsis Status: Acute Assessment & Plan: Pneumonia with tachycardiac and leukocytosis JOSE R- qualifies for severe sepsis Zosyn started in ER after blood cultures obtained Will Continue Will attempt to get sputum culture urine legionella and strep pneumo ordered No lactic acidosis or hypotension- no need for 30cc/kg bolus Will check flu Dr Verdugo consulted Qualifiers: Sepsis type: sepsis due to unspecified organism Qualified Codes: A41.9 - Sepsis, unspecified organism (2) JOSE R (acute kidney injury) Status: Acute Assessment & Plan: ? due to sepsis vs dehydration from poor PO intake over past few days IVF Continue to monitor (3) Essential (primary) hypertension Status: Chronic Assessment & Plan: BP well controlled currently Will trend (4) Hypercalcemia Assessment & Plan: New, will check ionized calcium and PTH Had CT Chest 1 month ago and Bronch 2 weeks ago with no evidence of malignancy Asymptomatic (5) CAP (community acquired pneumonia) Status: Acute Assessment & Plan: Abx as above Qualifiers: Laterality: unspecified laterality Qualified Codes: J18.9 - Pneumonia, unspecified organism (6) Prophylactic measure Assessment & Plan: Lovenox NS at 100cc/hr Reg Diet LORI BRISENO MD Apr 30, 2017 2:25 pm
[2017-04-30] MEDS ORDERED: INFLUENZA TRIvalent 2017-2018 0.5 ML/45 MCG SYR IM ONE (14:30)
[2017-04-30] MEDS: NS IV 1000 ML 1,000 ML IV SCH (14:54)
[2017-04-30 16:00] VITALS: BP 101/64
[2017-04-30] MEDS: PIPERACILLIN SODIUM/TAZOBACTAM 4.5 GM in NS (IVPB) 100 ML IV SCH (17:32)
[2017-04-30] MEDS: LACTOBACILLUS Acidoph/Bulgar (LACTINEX/FLORANEX) TAB PO SCH (17:33)
[2017-04-30 20:00] VITALS: BP 119/57
[2017-04-30] MEDS: Bimatoprost (Lumigan) 1 DROP OS SCH (20:49)
[2017-04-30] MEDS: RT-ALBUTEROL/IPRATROPIUM 3 ML (DUONEB) VIAL INH SCH (21:02)
[2017-05-01] MEDS: NS IV 1000 ML 1,000 ML IV SCH ×3 (00:02→20:12)
[2017-05-01 00:08] VITALS: BP 114/62
[2017-05-01] MEDS: PIPERACILLIN SODIUM/TAZOBACTAM 4.5 GM in NS (IVPB) 100 ML IV SCH ×3 (02:17→18:28)
[2017-05-01] MEDS: RT-ALBUTEROL/IPRATROPIUM 3 ML (DUONEB) VIAL INH SCH ×4 (02:27→21:20)
[2017-05-01 04:04] VITALS: BP 118/70
[2017-05-01 05:46] LABS: BASOPHILS % (AUTO) 0 % (0-10); EOSINOPHILS # (AUTO) 0.4 10^3/uL (0.0-0.3); EOSINOPHILS % (AUTO) 4 % (0-10); HEMATOCRIT 35 % (40-54); LYMPHOCYTES # (AUTO) 0.6 X 10^3 (1.0-4.0); LYMPHOCYTES % (AUTO) 5 % (12-44); MEAN CORPUSCULAR HEMOGLOBIN 32 PG (25-34); MEAN CORPUSCULAR HGB CONC 35 G/DL (32-36); MEAN CORPUSCULAR VOLUME 93 FL (80-99); MEAN PLATELET VOLUME 9.9 FL (7.4-10.4); MONOCYTES # (AUTO) 1.7 X 10^3 (0.0-1.0); MONOCYTES % (AUTO) 15 % (0-12); NEUTROPHILS # (AUTO) 8.8 X 10^3 (1.8-7.8); NEUTROPHILS % (AUTO) 76 % (42-75); PLATELET COUNT 301 10^3/uL (130-400); RED BLOOD COUNT 3.75 10^6/uL (4.35-5.85); RED CELL DISTRIBUTION WIDTH 12.6 % (10.0-14.5); WHITE BLOOD COUNT 11.5 10^3/uL (4.3-11.0)
[2017-05-01] MEDS: LACTOBACILLUS Acidoph/Bulgar (LACTINEX/FLORANEX) TAB PO SCH ×3 (06:22→16:10)
[2017-05-01 06:30] LABS: CALCIUM 9.7 MG/DL (8.5-10.1); CREATININE SERUM 1.18 MG/DL (0.60-1.30); POTASSIUM 4.1 MMOL/L (3.6-5.0)
[2017-05-01 08:00] VITALS: BP 122/61
[2017-05-01] MEDS: ENOXAPARIN 40 MG/0.4 ML (LOVENOX) SYR SC SCH (10:10)
--- NOTE | 2017-05-01 11:53 | Progress Note-Hospitalist ---
Subjective HPI/CC On Admission Date Seen by Provider: May 01, 2017 Time Seen by Provider: 11:37 Pt is a 76yoCM with a PMH of HTN and recurrent pneumonias who presented to the ER with CC of SOB. He reports he has been dealing with multiple episodes of pneumonia since and was admitted her in early March for pneumonia as well. He has since follow up with Dr Verdugo and underwent bronchoscopy on 04/18 which his daughter reports was "normal." He completed Omnicef on 04/28 and then shortly after began to feel sick again. He had poor appetite, clear/white sputum and SOB. He has 25 steps to walk up at his apartment and was becoming very dyspneic. He also started to have pain with deep breathes prompting him to seek evaluation in the ER. His daughter states he has lost 10lbs since with this. She is also concerned he has asbestosis from his years of working in [employer]. Subjective/Events-last exam He reports feeling better today but still has some shortness of breath. He saw Dr Verdugo this morning who is trying to expedite his referral to [facility]. Focused Exam Evaluation Lactate Level Laboratory Tests 04/30/17 11:21: Lactic Acid Level 0.92 Objective Exam Vital Signs Vital Signs Date Time Temp Pulse Resp B/P (MAP) Pulse Ox O2 Delivery O2 Flow Rate FiO2 04/30/17 10:59 98.6 95 18 142/80 (100) 98 Nasal Cannula 3.00 04/30/17 14:56 32 Capillary Refill : Less Than 3 SecondsLess Than 3 Seconds General Appearance: No Apparent Distress, WD/WN Results/Procedures Lab Laboratory Tests 05/01/17 05:35 Patient resulted labs reviewed. Imaging: Reviewed Imaging Films Assessment/Plan Assessment and Plan Assess & Plan/Chief Complaint Pneumonia Diagnosis/Problems Diagnosis/Problems (1) Sepsis Status: Acute Assessment & Plan: Pneumonia with tachycardiac and leukocytosis- improving ZosynDay 2 Sputum culture pending urine legionella and strep pneumo ordered Qualifiers: Sepsis type: sepsis due to unspecified organism Qualified Codes: A41.9 - Sepsis, unspecified organism (2) JOSE R (acute kidney injury) Status: Resolved Assessment & Plan: ? due to sepsis vs dehydration from poor PO intake over past few days Now resolved (3) Essential (primary) hypertension Status: Chronic Assessment & Plan: BP well controlled currently Will trend (4) Hypercalcemia Assessment & Plan: Now resolved (5) CAP (community acquired pneumonia) Status: Acute Assessment & Plan: Abx as above Qualifiers: Laterality: unspecified laterality Qualified Codes: J18.9 - Pneumonia, unspecified organism (6) Prophylactic measure Assessment & Plan: Lovenox NS at 100cc/hr Reg Diet Clinical Quality Measures DVT/VTE Risk/Contraindication: Risk Factor Score Per Nursin RFS Level Per Nursing on Admit: 4+=Very High LORI GANDHI MD May 01, 2017 11:53
[2017-05-01 12:00] VITALS: BP 134/77
[2017-05-01 15:40] VITALS: BP 150/72
[2017-05-01] MEDS: ONDANSETRON 4 MG/2 ML (SDV) Z0FRAN IV PRN (16:10)
[2017-05-01] MEDS: FLUTICASONE NASAL SPRAY (FLONASE) 16 GM BTL NS SCH (16:10)
[2017-05-01] MEDS: ACETAMINOPHEN 325 MG TABLET/CAPLET (TYLENOL) PO PRN (16:31)
[2017-05-01 19:40] VITALS: BP 127/71
[2017-05-01] MEDS: IBUPROFEN 600 MG (MOTRIN) TAB PO PRN (20:15)
[2017-05-01] MEDS: Bimatoprost (Lumigan) 1 DROP OS SCH (20:15)
[2017-05-01] MEDS ORDERED: PANTOPRAZOLE 20 MG TABLET (PROTONIX) PO ONE (20:19)
[2017-05-01] MEDS: PANTOPRAZOLE 20 MG TABLET (PROTONIX) PO SCH (20:23)
[2017-05-02 00:34] VITALS: BP 123/61
[2017-05-02] MEDS: PIPERACILLIN SODIUM/TAZOBACTAM 4.5 GM in NS (IVPB) 100 ML IV SCH ×3 (01:37→17:54)
[2017-05-02] MEDS: RT-ALBUTEROL/IPRATROPIUM 3 ML (DUONEB) VIAL INH SCH ×4 (02:22→22:29)
[2017-05-02] MEDS: ACETAMINOPHEN 325 MG TABLET/CAPLET (TYLENOL) PO PRN ×2 (02:52→13:27)
[2017-05-02 04:09] VITALS: BP 124/69
[2017-05-02] MEDS: PANTOPRAZOLE 20 MG TABLET (PROTONIX) PO SCH (05:45)
[2017-05-02] MEDS: LACTOBACILLUS Acidoph/Bulgar (LACTINEX/FLORANEX) TAB PO SCH ×3 (05:45→17:54)
[2017-05-02] MEDS: NS IV 1000 ML 1,000 ML IV SCH (05:45)
[2017-05-02 06:38] LABS: BASOPHILS % (AUTO) 0 % (0-10); EOSINOPHILS # (AUTO) 0.6 10^3/uL (0.0-0.3); EOSINOPHILS % (AUTO) 5 % (0-10); HEMATOCRIT 37 % (40-54); HEMOGLOBIN 12.4 G/DL (13.3-17.7); LYMPHOCYTES # (AUTO) 0.6 X 10^3 (1.0-4.0); LYMPHOCYTES % (AUTO) 5 % (12-44); MEAN CORPUSCULAR HEMOGLOBIN 32 PG (25-34); MEAN CORPUSCULAR HGB CONC 34 G/DL (32-36); MEAN CORPUSCULAR VOLUME 94 FL (80-99); MEAN PLATELET VOLUME 9.8 FL (7.4-10.4); MONOCYTES # (AUTO) 1.6 X 10^3 (0.0-1.0); MONOCYTES % (AUTO) 14 % (0-12); NEUTROPHILS # (AUTO) 8.6 X 10^3 (1.8-7.8); NEUTROPHILS % (AUTO) 75 % (42-75); PLATELET COUNT 313 10^3/uL (130-400); RED BLOOD COUNT 3.87 10^6/uL (4.35-5.85); RED CELL DISTRIBUTION WIDTH 12.6 % (10.0-14.5); WHITE BLOOD COUNT 11.4 10^3/uL (4.3-11.0)
[2017-05-02 07:03] LABS: BUN/CREATININE RATIO 13; CALCIUM 9.7 MG/DL (8.5-10.1); CARBON DIOXIDE 23 MMOL/L (21-32); CHLORIDE 108 MMOL/L (98-107); CREATININE SERUM 1.08 MG/DL (0.60-1.30); GFR ESTIMATED > 60; GLUCOSE 108 MG/DL (70-105); POTASSIUM 4.2 MMOL/L (3.6-5.0); SODIUM 138 MMOL/L (135-145)
[2017-05-02 08:00] VITALS: BP 136/63
[2017-05-02] MEDS: ENOXAPARIN 40 MG/0.4 ML (LOVENOX) SYR SC SCH (08:11)
[2017-05-02] MEDS: FLUTICASONE NASAL SPRAY (FLONASE) 16 GM BTL NS SCH (08:12)
--- NOTE | 2017-05-02 08:44 | Pulmonary Consultation ---
History of Present Illness History of Present Illness Date of Consultation 05/01/17 late note for 05/02/17 08:42 Time Seen by Provider: 08:47 Date of Admission Allergies and Home Medications Allergies Coded Allergies: No Known Drug Allergies (Unverified , 04/30/17) Home Medications Albuterol Sulfate 1 Puff Puff, 2 PUFF IH Q6H PRN for WHEEZING, (Reported) Albuterol Sulfate 2.5 Mg/0.5 Ml Vial.neb, 2.5 MG IH Q4H, (Reported) Amlodipine Besylate 5 Mg Tablet, 5 MG PO DAILY, (Reported) Bimatoprost 2.5 Ml Drops, 1 DROP OS HS, (Reported) Fluticasone Propionate 16 Gm [place].susp, 2 SPRAYS NSEACH DAILY, (Reported) Guaifenesin/Pseudoephedrne HCl 1 Each Tab.er.12h, 1 TAB PO Q12H PRN for CONGESTION, (Reported) Multivitamin 1 Each Tablet, 1 TAB PO DAILY, (Reported) Naproxen Sodium 220 Mg Tablet, 220-440 MG PO Q8H PRN for PAIN-MILD, (Reported) Omeprazole Magnesium 20 Mg Tablet.dr, 20 MG PO DAILY, (Reported) Past Pzhvbpz-Acrenp-Izjpei Hx Patient Social History Alcohol Use: Rarely Uses Number of Drinks Today: 0 Alcohol Beverage of Choice: Beer Recreational Drug Use: No Smoking Status: Former Smoker Type Used: Cigars Former Smoker, Quit: Mar 25, 1985 Recent Foreign Travel: No Contact w/Someone Who Travel: No Recent Infectious Disease Expo: No Recent Hopitalizations: No Seasonal Allergies Seasonal Allergies: Yes (SEASONAL ALLERGIES) Surgeries History of Surgeries: Yes Surgeries: Eye Surgery, Tonsillectomy Respiratory History of Respiratory Disorde: Yes (CHRONIC COUGH, ) Respiratory Disorders: Pneumonia Cardiovascular History of Cardiac Disorders: No Cardiac Disorders: Hypertension Neurological History of Neurological Disord: No Genitourinary History of Genitourinary Disor: No Gastrointestinal History of Gastrointestinal Di: Yes Gastrointestinal Disorders: Gastroesophageal Reflux Musculoskeletal History of Musculoskeletal Dis: No Endocrine History of Endocrine Disorders: No HEENT History of HEENT Disorders: Yes HEENT Disorders: Glaucoma Cancer History of Cancer: No Psychosocial History of Psychiatric Problem: No Integumentary History of Skin or Integumenta: No Blood Transfusions History of Blood Disorders: No Adverse Reaction to a Blood Tr: No Family Medical History Significant Family History: Cancer (dad-leukemia) Family Medial History: Exam Exam Vital Signs Date Time Temp Pulse Resp B/P (MAP) Pulse Ox O2 Delivery O2 Flow Rate FiO2 05/02/17 08:34 96 Nasal Cannula 3.00 05/02/17 07:00 82 05/02/17 04:09 97.6 89 17 124/69 (87) 97 Nasal Cannula 2.50 05/02/17 02:22 97 Nasal Cannula 3.00 05/02/17 01:00 85 05/02/17 00:34 98.8 92 17 123/61 (81) 97 Nasal Cannula 2.50 05/01/17 21:20 95 Nasal Cannula 3.00 05/01/17 20:40 Nasal Cannula 3.00 05/01/17 19:40 99.8 81 20 127/71 (89) 95 Nasal Cannula 2.50 05/01/17 19:00 100 05/01/17 15:53 97 Nasal Cannula 3.00 05/01/17 15:40 100.9 104 20 150/72 (98) 97 Nasal Cannula 2.50 05/01/17 13:00 101 05/01/17 12:00 98.3 69 18 134/77 (96) 98 Nasal Cannula 2.50 05/01/17 10:12 97 Nasal Cannula 3.00 I & O 05/02/17 07:00 Intake Total 4870 ml Output Total 2575 ml Balance 2295 ml General Appearance: No Apparent Distress, WD/WN HEENT: PERRL/EOMI, Moist Mucous Membranes Neck: Non Tender, Supple, No JVD, No Thyromegaly Respiratory: No Respiratory Distress, Decreased Breath Sounds (left lower lobe) , No Wheezing Cardiovascular: Regular Rate, Rhythm, No Murmur Capillary Refill: Less Than 3 Seconds Gastrointestinal: normal bowel sounds, non tender Extremity: Normal Capillary Refill, No Calf Tenderness, No Pedal Edema, Calf Tenderness Neurologic/Psychiatric: Alert, Oriented x3, No Motor/Sensory Deficits, Normal Mood/Affect Skin: Normal Color, Warm/Dry Results Lab Laboratory Tests 04/30/17 11:06 05/01/17 05:35 05/02/17 06:27 Assessment/Plan Assessment/Plan Sepsis secondary to pneumonia - failed out patient treatment -Pt has been on multiple abx recently -Zosyn ILD with pulmonary fibrosis - -oxygen -SVN [id number] PHIL KEANE DO May 02, 2017 08:44
--- NOTE | 2017-05-02 08:47 | Pulmonary Progress Note ---
Focused Exam Evaluation Lactate Level Laboratory Tests 04/30/17 11:21: Lactic Acid Level 0.92 Exam Exam Vital Signs Date Time Temp Pulse Resp B/P (MAP) Pulse Ox O2 Delivery O2 Flow Rate FiO2 05/02/17 08:34 96 Nasal Cannula 3.00 05/02/17 07:00 82 05/02/17 04:09 97.6 89 17 124/69 (87) 97 Nasal Cannula 2.50 05/02/17 02:22 97 Nasal Cannula 3.00 05/02/17 01:00 85 05/02/17 00:34 98.8 92 17 123/61 (81) 97 Nasal Cannula 2.50 05/01/17 21:20 95 Nasal Cannula 3.00 05/01/17 20:40 Nasal Cannula 3.00 05/01/17 19:40 99.8 81 20 127/71 (89) 95 Nasal Cannula 2.50 05/01/17 19:00 100 05/01/17 15:53 97 Nasal Cannula 3.00 05/01/17 15:40 100.9 104 20 150/72 (98) 97 Nasal Cannula 2.50 05/01/17 13:00 101 05/01/17 12:00 98.3 69 18 134/77 (96) 98 Nasal Cannula 2.50 05/01/17 10:12 97 Nasal Cannula 3.00 I & O 05/02/17 07:00 Intake Total 4870 ml Output Total 2575 ml Balance 2295 ml General Appearance: No Apparent Distress, WD/WN HEENT: PERRL/EOMI, Moist Mucous Membranes Neck: Non Tender, Supple, No JVD, No Thyromegaly Respiratory: No Respiratory Distress, Decreased Breath Sounds (left lower lobe) , No Wheezing Cardiovascular: Regular Rate, Rhythm, No Murmur Capillary Refill: Less Than 3 Seconds Gastrointestinal: normal bowel sounds, non tender Extremity: Normal Capillary Refill, No Calf Tenderness, No Pedal Edema, Calf Tenderness Neurologic/Psychiatric: Alert, Oriented x3, No Motor/Sensory Deficits, Normal Mood/Affect Skin: Normal Color, Warm/Dry Results Lab Laboratory Tests 04/30/17 11:06 05/01/17 05:35 05/02/17 06:27 Assessment/Plan Assessment/Plan Pneumonia with sepsis -Continue Abx ILD with pulmonary fibrosis s/p bronchoscopy - Hypercalcemia 232 PHIL KEANE DO May 02, 2017 08:47
[2017-05-02] MEDS ORDERED: NON-FORMULARY MEDICATION 1 EA EA (Omeprazole Magnesium (Prilosec Otc) 20 MG) PO SCH (09:00)
[2017-05-02 12:00] VITALS: BP 166/85
[2017-05-02] MEDS: ONDANSETRON 4 MG/2 ML (SDV) Z0FRAN IV PRN (13:22)
--- NOTE | 2017-05-02 14:38 | Progress Note-Hospitalist ---
Subjective HPI/CC On Admission Date Seen by Provider: May 02, 2017 Time Seen by Provider: 14:00 Pt is a 76yoCM with a PMH of HTN and recurrent pneumonias who presented to the ER with CC of SOB. He reports he has been dealing with multiple episodes of pneumonia since and was admitted her in early March for pneumonia as well. He has since follow up with Dr Verdugo and underwent bronchoscopy on 04/18 which his daughter reports was "normal." He completed Omnicef on 04/28 and then shortly after began to feel sick again. He had poor appetite, clear/white sputum and SOB. He has 25 steps to walk up at his apartment and was becoming very dyspneic. He also started to have pain with deep breathes prompting him to seek evaluation in the ER. His daughter states he has lost 10lbs since with this. She is also concerned he has asbestosis from his years of working in [employer]. Subjective/Events-last exam Pt reports some nausea today but improving with medicines. He has recurrent fevers today. Focused Exam Evaluation Lactate Level Laboratory Tests 04/30/17 11:21: Lactic Acid Level 0.92 Objective Exam Vital Signs Vital Signs Date Time Temp Pulse Resp B/P (MAP) Pulse Ox O2 Delivery O2 Flow Rate FiO2 04/30/17 10:59 98.6 95 18 142/80 (100) 98 Nasal Cannula 3.00 04/30/17 14:56 32 Capillary Refill : Less Than 3 SecondsLess Than 3 Seconds General Appearance: No Apparent Distress, WD/WN HEENT: PERRL/EOMI, Moist Mucous Membranes Neck: Non Tender, Supple Respiratory: No Accessory Muscle Use, No Respiratory Distress, Crackles, Rhonci Cardiovascular: Regular Rate, Rhythm, No Murmur Gastrointestinal: Normal Bowel Sounds, Non Tender, Soft Extremity: Normal Capillary Refill, No Calf Tenderness Neurologic/Psychiatric: Alert, Oriented x3, Normal Mood/Affect Skin: Normal Color, Warm/Dry Results/Procedures Lab Laboratory Tests 05/02/17 06:27 Patient resulted labs reviewed. Imaging: Reviewed Imaging Films Assessment/Plan Assessment and Plan Assess & Plan/Chief Complaint Pneumonia Diagnosis/Problems Diagnosis/Problems (1) Sepsis Status: Acute Assessment & Plan: Pneumonia with tachycardiac and leukocytosis- improving Zosyn Day 3 Sputum culture negative Blood cx negative urine legionella and strep pneumo negative Qualifiers: Sepsis type: sepsis due to unspecified organism Qualified Codes: A41.9 - Sepsis, unspecified organism (2) CAP (community acquired pneumonia) Status: Acute Assessment & Plan: Abx as above Qualifiers: Laterality: unspecified laterality Qualified Codes: J18.9 - Pneumonia, unspecified organism (3) JOSE R (acute kidney injury) Status: Resolved Assessment & Plan: Resolved (4) Essential (primary) hypertension Status: Chronic Assessment & Plan: BP well controlled currently Will trend (5) Hypercalcemia Assessment & Plan: Now resolved (6) Prophylactic measure Assessment & Plan: Lovenox Saline lock Reg Diet Clinical Quality Measures DVT/VTE Risk/Contraindication: Risk Factor Score Per Nursin RFS Level Per Nursing on Admit: 4+=Very High LORI GANDHI MD May 02, 2017 2:38 pm
--- NOTE | 2017-05-02 14:54 | Physical Therapy Progress Note ---
Therapy Progress Note Chart reviewed and evaluation attempted. Patient refused treatment. Patient states he is running a fever and is very nauseated. He says "I don't want to get up and vomit". PT will check on patient in the morning. CED AKINS PT May 02, 2017 14:54
[2017-05-02 16:07] VITALS: BP 140/71
[2017-05-02] MEDS: IBUPROFEN 600 MG (MOTRIN) TAB PO PRN (19:31)
[2017-05-02 19:46] VITALS: BP 160/84
[2017-05-02] MEDS: Bimatoprost (Lumigan) 1 DROP OS SCH (20:02)
[2017-05-02] MEDS ORDERED: FUROSEMIDE 40 MG/4 ML INJ (LASIX) IVP NR (20:19)
[2017-05-03] VITALS (7 sets, daily range): BP systolic 120–159; BP diastolic 55–81
[2017-05-03] MEDS: PIPERACILLIN SODIUM/TAZOBACTAM 4.5 GM in NS (IVPB) 100 ML IV SCH ×2 (01:31→09:29)
[2017-05-03] MEDS: RT-ALBUTEROL/IPRATROPIUM 3 ML (DUONEB) VIAL INH SCH ×4 (03:02→20:55)
[2017-05-03] MEDS: LACTOBACILLUS Acidoph/Bulgar (LACTINEX/FLORANEX) TAB PO SCH ×3 (06:09→17:09)
[2017-05-03] MEDS: PANTOPRAZOLE 20 MG TABLET (PROTONIX) PO SCH (06:09)
--- NOTE | 2017-05-03 09:11 | Diagnostic Imaging Report ---
Procedure: PA and lateral chest at 9:11. Indication: Respiratory distress Findings: The appearance of the chest has worsened somewhat since the prior exam of 04/30/2017 as the density in both lungs has increased slightly. The lung apices remain clear. The heart is stable in size. The mediastinum is not widened. The osseous structures are intact. Impression: The appearance of the chest is somewhat worse as there is slightly greater involvement of both lungs by pneumonia/atelectasis and fluid, particularly left lung. A followup study would be recommended for continued evaluation. Dictated by: Dictated on workstation # [id number]
[2017-05-03 09:20] LABS: BASOPHILS % (AUTO) 0 % (0-10); EOSINOPHILS # (AUTO) 0.5 10^3/uL (0.0-0.3); EOSINOPHILS % (AUTO) 3 % (0-10); HEMATOCRIT 38 % (40-54); HEMOGLOBIN 13.3 G/DL (13.3-17.7); LYMPHOCYTES # (AUTO) 0.5 X 10^3 (1.0-4.0); LYMPHOCYTES % (AUTO) 4 % (12-44); MEAN CORPUSCULAR HEMOGLOBIN 32 PG (25-34); MEAN CORPUSCULAR HGB CONC 35 G/DL (32-36); MEAN CORPUSCULAR VOLUME 92 FL (80-99); MEAN PLATELET VOLUME 9.6 FL (7.4-10.4); MONOCYTES # (AUTO) 1.6 X 10^3 (0.0-1.0); MONOCYTES % (AUTO) 12 % (0-12); NEUTROPHILS # (AUTO) 10.6 X 10^3 (1.8-7.8); NEUTROPHILS % (AUTO) 81 % (42-75); PLATELET COUNT 365 10^3/uL (130-400); RED BLOOD COUNT 4.13 10^6/uL (4.35-5.85); RED CELL DISTRIBUTION WIDTH 12.3 % (10.0-14.5); WHITE BLOOD COUNT 13.1 10^3/uL (4.3-11.0)
[2017-05-03] MEDS: ENOXAPARIN 40 MG/0.4 ML (LOVENOX) SYR SC SCH (09:29)
[2017-05-03] MEDS: FLUTICASONE NASAL SPRAY (FLONASE) 16 GM BTL NS SCH (09:30)
[2017-05-03 09:40] LABS: ALANINE AMINOTRANSFERASE 56 U/L (0-55); ALBUMIN 3.4 GM/DL (3.2-4.5); ALKALINE PHOSPHATASE 157 U/L (40-136); BILIRUBIN,TOTAL 0.7 MG/DL (0.1-1.0); BUN/CREATININE RATIO 11; CALCIUM 10.5 MG/DL (8.5-10.1); CARBON DIOXIDE 28 MMOL/L (21-32); CHLORIDE 101 MMOL/L (98-107); CREATININE SERUM 1.01 MG/DL (0.60-1.30); GFR ESTIMATED > 60; GLUCOSE 102 MG/DL (70-105); POTASSIUM 4.1 MMOL/L (3.6-5.0); SODIUM 136 MMOL/L (135-145); TOTAL PROTEIN 7.1 GM/DL (6.4-8.2)
[2017-05-03] MEDS ORDERED: VANCOMYCIN 1500 MG/NS 500 ML IVPB IV NR ×2 (11:00)
--- NOTE | 2017-05-03 11:28 | Physical Therapy Evaluation ---
PT Evaluation-General Medical Diagnosis Admission Date Apr 30, 2017 at 12:06 Medical Diagnosis: pneumonia/sepsis Onset Date: Apr 30, 2017 Therapy Diagnosis Therapy Diagnosis: weakness;abn gait Height/Weight Height (Feet): 6 Height (Inches): 2.00 Weight (Pounds): 205 Weight (Ounces): 0.0 Precautions Precautions/Isolations: Standard Precautions Referral Physician: Suzanna Reason for Referral: Evaluation/Treatment Medical History Pertinent Medical History: COPD, GERD, HTN Current History Admitted with pneumonia/sepsis Reviewed History: Yes Social History Home: Apartment Current Living Status: Alone Entry Into Home: Stairs With Railing (25) PT Steps Into Home: 25 (apartment 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 PT Evaluation-Current Subjective Agrees to PT. Reports he feels week but that it feels good to get up. Pain Numeric Pain Scale: 0-No Pain Location: No Pain Reported Objective Patient Orientation: Person, Place, Time, Situation Problem Solving: Good Attachments: Oxygen, IV ROM/Strength ROM Lower Extremities wNL Strength Lower Extremities WFL Integumentary/Posture Integumentary Refer to nursing notes. Bowel Incontinence: No Bladder Incontinence: No Posture normal and symmetrical Neuromuscular (Tone, Coordination, Reflexes) intact and functional Sensory Vision: Functional Hearing: Functional Hand Dominance: Right Sensation Right Lower Extremit: Intact Sensation Left Lower Extremity: Intact Transfers Functional [place] Measure 0=Not Assessed/NA 4=Minimal Assistance 1=Total Assistance 5=Supervision or Setup 2=Maximal Assistance 6=Modified [place] 3=Moderate Assistance 7=Complete [place] Transfers (B, C, W/C) (FIM): 5 (SBA for safety) Supine to/from Sit: 5 Sit to/from Stand: 5 Gait Mode of Locomotion: Walk Anticipated Mode of Locomotion: Walk Gait (FIM): 5 Distance (FIM): 3=150 ft Distance: 200 ft Gait Level of Assist: 5 Gait Persons Needed: 1 Gait Assistive Device: FWW Comments/Gait Description safe and steady gait; no noted LOB Balance Sitting Static: Good Sitting Dynamic: Good Standing Static: Good Standing Dynamic: Good Treatment Gait training in his room as well as in the [place]. Education on frequent ambulation to increase strength and functional act tolerance. Educated pt to ask nurse tech to walk with him if he wants to walk as he needs assist with oxygen and IV. Assessment/Needs Post acute hospital stay due to pneumonia. Decreased functional activity tolerance ans trength. He will benefit from skilled PT intervneiton to work on functional strength and mobility to allow him to return home as before. 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 Goals Time Frame: May 10, 2017 Transfers (B,C,W/C) (FIM): 6 Gait (FIM): 6 Gait distance (FIM): 3=150 ft Gait Assistive Device: Cane Single Point PT Plan Problem List Problem List: Activity Tolerance, Functional Strength, Safety, Balance, Gait, Transfer Treatment/Plan Treatment Plan: Continue Plan of Care Treatment Plan: Bed Mobility, Education, Functional Activity Bao, Functional Strength, Gait, Safety, Therapeutic Exercise, Transfers Treatment Duration: May 10, 2017 Frequency: 5 times per week Estimated Hrs Per Day: .25 hour per day Patient and/or Family Agrees t: Yes Safety Risks/Education Patient Education: Transfer Techniques, Safety Issues Teaching Recipient: Patient Teaching Methods: Discussion Response to Teaching: Reinforcement Needed Time/GCodes Time In: 1025 Time Out: 1053 Total Billed Treatment Time: 28 Total Billed Treatment visit EVM 15 GT 13 STEPHANE GOODSON PT May 03, 2017 11:28
[2017-05-03] MEDS: MEROPENEM 500 MG in NS (IVPB) 100 ML IV SCH ×2 (12:30→17:09)
[2017-05-03] MEDS: IBUPROFEN 600 MG (MOTRIN) TAB PO PRN ×2 (12:34→21:20)
--- NOTE | 2017-05-03 14:45 | Progress Note-Hospitalist ---
Subjective HPI/CC On Admission Date Seen by Provider: May 03, 2017 Time Seen by Provider: 14:40 Pt is a 76yoCM with a PMH of HTN and recurrent pneumonias who presented to the ER with CC of SOB. He reports he has been dealing with multiple episodes of pneumonia since and was admitted her in early March for pneumonia as well. He has since follow up with Dr Verdugo and underwent bronchoscopy on 04/18 which his daughter reports was "normal." He completed Omnicef on 04/28 and then shortly after began to feel sick again. He had poor appetite, clear/white sputum and SOB. He has 25 steps to walk up at his apartment and was becoming very dyspneic. He also started to have pain with deep breathes prompting him to seek evaluation in the ER. His daughter states he has lost 10lbs since with this. She is also concerned he has asbestosis from his years of working in [employer]. Subjective/Events-last exam Reports doing well today but had a rough night. SOB and feeling "rattly." He was given lasix and feels much better now. No other complaints. Objective Exam Vital Signs Vital Signs Date Time Temp Pulse Resp B/P (MAP) Pulse Ox O2 Delivery O2 Flow Rate FiO2 04/30/17 10:59 98.6 95 18 142/80 (100) 98 Nasal Cannula 3.00 04/30/17 14:56 32 Capillary Refill : Less Than 3 SecondsLess Than 3 Seconds General Appearance: No Apparent Distress, WD/WN Respiratory: Lungs Clear, No Respiratory Distress Cardiovascular: Regular Rate, Rhythm, No Murmur Gastrointestinal: Normal Bowel Sounds, Non Tender, Soft Neurologic/Psychiatric: Alert, Oriented x3, Normal Mood/Affect Skin: Normal Color, Warm/Dry Results/Procedures Lab Laboratory Tests 05/03/17 09:09 Patient resulted labs reviewed. Imaging: Reviewed Imaging Report Assessment/Plan Assessment and Plan Assess & Plan/Chief Complaint Pneumonia Diagnosis/Problems Diagnosis/Problems (1) Sepsis Status: Acute Assessment & Plan: Worsening leukocytosis and persistent fever Will switch to Vanc/Merrem Sputum culture negative x2 Blood cx negative urine legionella and strep pneumo negative Qualifiers: Sepsis type: sepsis due to unspecified organism Qualified Codes: A41.9 - Sepsis, unspecified organism (2) CAP (community acquired pneumonia) Status: Acute Assessment & Plan: Abx as above On probiotic Qualifiers: Laterality: unspecified laterality Qualified Codes: J18.9 - Pneumonia, unspecified organism (3) JOSE R (acute kidney injury) Status: Resolved Assessment & Plan: Resolved (4) Essential (primary) hypertension Status: Chronic Assessment & Plan: BP well controlled currently Will trend (5) Hypercalcemia Assessment & Plan: Now resolved (6) Prophylactic measure Assessment & Plan: Lovenox Saline lock Reg Diet Clinical Quality Measures DVT/VTE Risk/Contraindication: Risk Factor Score Per Nursin RFS Level Per Nursing on Admit: 4+=Very High LORI GANDHI MD May 03, 2017 14:45
[2017-05-03] MEDS: Bimatoprost (Lumigan) 1 DROP OS SCH (21:18)
[2017-05-03] MEDS: VANCOMYCIN 1250 MG/NS 250 ML IVPB IV SCH ×2 (23:09)
[2017-05-04] VITALS: BP 141/68
[2017-05-04] MEDS: MEROPENEM 500 MG in NS (IVPB) 100 ML IV SCH ×4 (00:32→18:29)
[2017-05-04] MEDS: ACETAMINOPHEN 325 MG TABLET/CAPLET (TYLENOL) PO PRN ×3 (00:45→21:36)
[2017-05-04] MEDS: RT-ALBUTEROL/IPRATROPIUM 3 ML (DUONEB) VIAL INH SCH ×4 (03:06→20:30)
[2017-05-04 04:00] VITALS: BP 153/86
[2017-05-04 05:47] LABS: BASOPHILS % (AUTO) 0 % (0-10); EOSINOPHILS # (AUTO) 0.6 10^3/uL (0.0-0.3); EOSINOPHILS % (AUTO) 6 % (0-10); HEMATOCRIT 35 % (40-54); HEMOGLOBIN 12.3 G/DL (13.3-17.7); LYMPHOCYTES # (AUTO) 0.6 X 10^3 (1.0-4.0); LYMPHOCYTES % (AUTO) 6 % (12-44); MEAN CORPUSCULAR HEMOGLOBIN 32 PG (25-34); MEAN CORPUSCULAR HGB CONC 35 G/DL (32-36); MEAN CORPUSCULAR VOLUME 92 FL (80-99); MEAN PLATELET VOLUME 9.6 FL (7.4-10.4); MONOCYTES # (AUTO) 1.6 X 10^3 (0.0-1.0); MONOCYTES % (AUTO) 16 % (0-12); NEUTROPHILS # (AUTO) 7.4 X 10^3 (1.8-7.8); NEUTROPHILS % (AUTO) 73 % (42-75); PLATELET COUNT 359 10^3/uL (130-400); RED BLOOD COUNT 3.84 10^6/uL (4.35-5.85); RED CELL DISTRIBUTION WIDTH 12.4 % (10.0-14.5); WHITE BLOOD COUNT 10.2 10^3/uL (4.3-11.0)
[2017-05-04 06:03] LABS: BUN/CREATININE RATIO 12; CALCIUM 10.1 MG/DL (8.5-10.1); CARBON DIOXIDE 27 MMOL/L (21-32); CHLORIDE 105 MMOL/L (98-107); CREATININE SERUM 0.91 MG/DL (0.60-1.30); GFR ESTIMATED > 60; GLUCOSE 106 MG/DL (70-105); POTASSIUM 3.9 MMOL/L (3.6-5.0); SODIUM 139 MMOL/L (135-145)
--- NOTE | 2017-05-04 06:34 | Pulmonary Progress Note ---
Subjective Date Seen by Provider: May 03, 2017 (late entry today is 05/04) Time Seen by Provider: 06:34 Subjective/Events-last exam pt feels improved. Exam Exam Vital Signs Date Time Temp Pulse Resp B/P (MAP) Pulse Ox O2 Delivery O2 Flow Rate FiO2 05/04/17 04:00 97.6 93 21 153/86 (108) 96 Nasal Cannula 3.00 05/04/17 01:00 90 05/04/17 00:00 99.1 99 20 141/68 (92) 91 Nasal Cannula 3.00 05/03/17 22:10 100.4 05/03/17 20:58 95 Nasal Cannula 3.00 05/03/17 19:40 100.3 107 20 159/80 (106) 98 Nasal Cannula 3.00 05/03/17 19:00 114 05/03/17 15:20 92.6 106 20 120/55 (76) 95 Nasal Cannula 3.00 05/03/17 14:54 94 95 32 05/03/17 14:51 95 Nasal Cannula 3.00 05/03/17 13:05 100.6 05/03/17 13:00 94 05/03/17 12:00 101.6 103 20 131/69 (89) 99 Nasal Cannula 3.00 05/03/17 09:03 96 Nasal Cannula 3.00 05/03/17 08:00 98.8 96 20 146/78 (100) 95 Nasal Cannula 3.00 05/03/17 07:56 Nasal Cannula 3.00 05/03/17 07:00 96 I & O 05/04/17 07:00 Intake Total 1640 ml Output Total 400 ml Balance 1240 ml General Appearance: No Apparent Distress, WD/WN HEENT: PERRL/EOMI, Moist Mucous Membranes Neck: Non Tender, Supple Respiratory: Lungs Clear, No Respiratory Distress Cardiovascular: Regular Rate, Rhythm, No Murmur Capillary Refill: Less Than 3 Seconds Gastrointestinal: normal bowel sounds, non tender Extremity: Normal Capillary Refill, No Calf Tenderness Neurologic/Psychiatric: Alert, Oriented x3, Normal Mood/Affect Skin: Normal Color, Warm/Dry Results Lab Laboratory Tests 05/03/17 09:09 05/04/17 05:20 Assessment/Plan Assessment/Plan Pneumonia with sepsis -Continue Abx -Change abx to vanco merrem -check CXR ILD with pulmonary fibrosis s/p bronchoscopy - Hypercalcemia 232 PHIL KEANE DO May 04, 2017 06:34
--- NOTE | 2017-05-04 06:36 | Pulmonary Progress Note ---
Exam Exam Vital Signs Date Time Temp Pulse Resp B/P (MAP) Pulse Ox O2 Delivery O2 Flow Rate FiO2 05/04/17 04:00 97.6 93 21 153/86 (108) 96 Nasal Cannula 3.00 05/04/17 01:00 90 05/04/17 00:00 99.1 99 20 141/68 (92) 91 Nasal Cannula 3.00 05/03/17 22:10 100.4 05/03/17 20:58 95 Nasal Cannula 3.00 05/03/17 19:40 100.3 107 20 159/80 (106) 98 Nasal Cannula 3.00 05/03/17 19:00 114 05/03/17 15:20 92.6 106 20 120/55 (76) 95 Nasal Cannula 3.00 05/03/17 14:54 94 95 32 05/03/17 14:51 95 Nasal Cannula 3.00 05/03/17 13:05 100.6 05/03/17 13:00 94 05/03/17 12:00 101.6 103 20 131/69 (89) 99 Nasal Cannula 3.00 05/03/17 09:03 96 Nasal Cannula 3.00 05/03/17 08:00 98.8 96 20 146/78 (100) 95 Nasal Cannula 3.00 05/03/17 07:56 Nasal Cannula 3.00 05/03/17 07:00 96 I & O 05/04/17 07:00 Intake Total 1640 ml Output Total 400 ml Balance 1240 ml General Appearance: No Apparent Distress, WD/WN HEENT: PERRL/EOMI, Moist Mucous Membranes Neck: Non Tender, Supple Respiratory: Lungs Clear, No Respiratory Distress Cardiovascular: Regular Rate, Rhythm, No Murmur Capillary Refill: Less Than 3 Seconds Gastrointestinal: normal bowel sounds, non tender Extremity: Normal Capillary Refill, No Calf Tenderness Neurologic/Psychiatric: Alert, Oriented x3, Normal Mood/Affect Skin: Normal Color, Warm/Dry Results Lab Laboratory Tests 05/03/17 09:09 05/04/17 05:20 Assessment/Plan Assessment/Plan Pneumonia with sepsis -Continue Abx merrem and vanco -await neumann cultures ILD with pulmonary fibrosis s/p bronchoscopy - Hypercalcemia CXR and labs reviewed. 232 PHIL KEANE DO May 04, 2017 06:35
[2017-05-04] MEDS: PANTOPRAZOLE 20 MG TABLET (PROTONIX) PO SCH (06:52)
[2017-05-04] MEDS: LACTOBACILLUS Acidoph/Bulgar (LACTINEX/FLORANEX) TAB PO SCH ×3 (06:52→16:51)
[2017-05-04 08:00] VITALS: BP 140/80
[2017-05-04] MEDS: FLUTICASONE NASAL SPRAY (FLONASE) 16 GM BTL NS SCH (08:28)
[2017-05-04] MEDS: ENOXAPARIN 40 MG/0.4 ML (LOVENOX) SYR SC SCH (08:29)
--- NOTE | 2017-05-04 09:43 | Physical Therapy Daily Note ---
PT Daily Note-Current Subjective Reports he has diarrhea and does not want to walk. Agreeable to sit up in the chair. Pain Numeric Pain Scale: 0-No Pain Location: No Pain Reported Mental Status Patient Orientation: Person, Place, Time, Situation Transfers Functional [place] Measure 0=Not Assessed/NA 4=Minimal Assistance 1=Total Assistance 5=Supervision or Setup 2=Maximal Assistance 6=Modified [place] 3=Moderate Assistance 7=Complete IndependenceIRFPAI Quality Coding Scale 6 Independent with activity with or without an assistive device 5 Patient requires set up or clean up by helper. Patient completes activity by themselves 4 Supervision or touching assist (CGA). [place] provide cues , steadying assist 3 The helper provides less than half the effort to complete the activity 2 The helper provides more than half the effort to complete the activity 1 Dependent. The helper does all the effort to complete an activity 7 Patient refused to complete or attempt activity 9 The patient did not perform the activity before the current illness or injury 88 Not attempted due to Medical conditions or safety concerns Transfers (B, C, W/C) (FIM): 5 Supine to/from Sit: 5 Sit to/from Stand: 5 Bed to/from Chair: 5 SBA with all transfers; did not use the FWW to go to the chair which was 4-5 steps away. Exercises Seated Therapy Exercises: Ankle pumps, Long arc quads, Hip flexion, Hamstring Curls, Hip abd/add Seated Reps: 15 (to promote LE strength and functional activity tolerance for functional mobility.) Assessment Current Status: Good Progress Progressing well. Seems stronger today. PT Snf Goals Snf Goals PT Snf Goals Time Frame: May 10, 2017 Transfers (B,C,W/C) (FIM): 6 Gait (FIM): 6 Gait distance (FIM): 3=150 ft Gait Assistive Device: Cane Single Point PT Plan Problem List Problem List: Activity Tolerance, Functional Strength, Safety Treatment/Plan Treatment Plan: Continue Plan of Care Treatment Plan: Bed Mobility, Education, Functional Activity Bao, Functional Strength, Gait, Safety, Therapeutic Exercise, Transfers Treatment Duration: May 10, 2017 Frequency: 6 times per week Estimated Hrs Per Day: .25 hour per day Patient and/or Family Agrees t: Yes Safety Risks/Education Patient Education: Safety Issues Teaching Recipient: Patient Teaching Methods: Discussion Also educated pt to sit up in the chair for all meals over the weekend and he can perform the leg exercises if he wishes. Verbalized understanding. Time/GCodes Time In: 855 Time Out: 908 Total Billed Treatment Time: 13 Total Billed Treatment visit EX 13 STEPHANE GOODSON PT May 04, 2017 09:43
[2017-05-04] MEDS: VANCOMYCIN 1250 MG/NS 250 ML IVPB IV SCH ×4 (11:47→22:25)
[2017-05-04 12:00] VITALS: BP 154/93
--- NOTE | 2017-05-04 13:17 | Progress Note-Hospitalist ---
Subjective HPI/CC On Admission Date Seen by Provider: May 04, 2017 Time Seen by Provider: 13:12 Pt is a 76yoCM with a PMH of HTN and recurrent pneumonias who presented to the ER with CC of SOB. He reports he has been dealing with multiple episodes of pneumonia since and was admitted her in early March for pneumonia as well. He has since follow up with Dr Verdugo and underwent bronchoscopy on 04/18 which his daughter reports was "normal." He completed Omnicef on 04/28 and then shortly after began to feel sick again. He had poor appetite, clear/white sputum and SOB. He has 25 steps to walk up at his apartment and was becoming very dyspneic. He also started to have pain with deep breathes prompting him to seek evaluation in the ER. His daughter states he has lost 10lbs since with this. She is also concerned he has asbestosis from his years of working in [employer]. Subjective/Events-last exam Pt reports doing well today. No complaints. No fever today. Sitting up in bed. Less SOB. Objective Exam Vital Signs Vital Signs Date Time Temp Pulse Resp B/P (MAP) Pulse Ox O2 Delivery O2 Flow Rate FiO2 04/30/17 10:59 98.6 95 18 142/80 (100) 98 Nasal Cannula 3.00 04/30/17 14:56 32 Capillary Refill : Less Than 3 SecondsLess Than 3 Seconds General Appearance: No Apparent Distress, WD/WN Respiratory: Lungs Clear, No Respiratory Distress Cardiovascular: Regular Rate, Rhythm, No Murmur Gastrointestinal: Normal Bowel Sounds, Non Tender, Soft Extremity: No Calf Tenderness, No Pedal Edema Neurologic/Psychiatric: Alert, Oriented x3, Normal Mood/Affect Results/Procedures Lab Laboratory Tests 05/04/17 05:20 Patient resulted labs reviewed. Imaging: Reviewed Imaging Report Assessment/Plan Assessment and Plan Assess & Plan/Chief Complaint Pneumonia Diagnosis/Problems Diagnosis/Problems (1) Sepsis Status: Acute Assessment & Plan: Leukocytosis resolved and afebrile since last night Continue Vanc/Merrem Sputum culture negative x2 Blood cx negative urine legionella and strep pneumo negative Qualifiers: Sepsis type: sepsis due to unspecified organism Qualified Codes: A41.9 - Sepsis, unspecified organism (2) CAP (community acquired pneumonia) Status: Acute Assessment & Plan: Abx as above On probiotic as well Qualifiers: Laterality: unspecified laterality Qualified Codes: J18.9 - Pneumonia, unspecified organism (3) JOSE R (acute kidney injury) Status: Resolved Assessment & Plan: Resolved (4) Essential (primary) hypertension Status: Chronic Assessment & Plan: BP well controlled currently Will trend (5) Hypercalcemia Assessment & Plan: Now resolved (6) Prophylactic measure Assessment & Plan: Lovenox Saline lock Reg Diet Clinical Quality Measures DVT/VTE Risk/Contraindication: Risk Factor Score Per Nursin RFS Level Per Nursing on Admit: 4+=Very High LORI GANDHI MD May 04, 2017 1:17 pm
[2017-05-04 15:20] VITALS: BP 139/73
[2017-05-04] MEDS ORDERED: LACTOBACILLUS Acidoph/Bulgar (LACTINEX/FLORANEX) TAB PO SCH (16:00)
[2017-05-04] MEDS ORDERED: LOPERAMIDE 2 MG (IMODIUM) CAP PO PRN (19:00)
[2017-05-04 19:55] VITALS: BP 125/75
[2017-05-04] MEDS: Bimatoprost (Lumigan) 1 DROP OS SCH (20:32)
[2017-05-05] VITALS: BP 131/74
[2017-05-05] MEDS: MEROPENEM 500 MG in NS (IVPB) 100 ML IV SCH ×5 (00:11→23:36)
[2017-05-05] MEDS: RT-ALBUTEROL/IPRATROPIUM 3 ML (DUONEB) VIAL INH SCH ×4 (02:56→19:33)
[2017-05-05 04:45] VITALS: BP 154/74
[2017-05-05] MEDS: PANTOPRAZOLE 20 MG TABLET (PROTONIX) PO SCH (06:04)
[2017-05-05] MEDS: LACTOBACILLUS Acidoph/Bulgar (LACTINEX/FLORANEX) TAB PO SCH ×3 (06:04→18:14)
[2017-05-05 06:34] LABS: BASOPHILS # (AUTO) 0.1 10^3/uL (0.0-0.1); BASOPHILS % (AUTO) 0 % (0-10); EOSINOPHILS # (AUTO) 0.5 10^3/uL (0.0-0.3); EOSINOPHILS % (AUTO) 4 % (0-10); HEMATOCRIT 35 % (40-54); HEMOGLOBIN 12.2 G/DL (13.3-17.7); LYMPHOCYTES # (AUTO) 0.5 X 10^3 (1.0-4.0); LYMPHOCYTES % (AUTO) 5 % (12-44); MEAN CORPUSCULAR HEMOGLOBIN 32 PG (25-34); MEAN CORPUSCULAR HGB CONC 35 G/DL (32-36); MEAN CORPUSCULAR VOLUME 92 FL (80-99); MEAN PLATELET VOLUME 10.1 FL (7.4-10.4); MONOCYTES # (AUTO) 1.5 X 10^3 (0.0-1.0); MONOCYTES % (AUTO) 14 % (0-12); NEUTROPHILS # (AUTO) 8.7 X 10^3 (1.8-7.8); NEUTROPHILS % (AUTO) 77 % (42-75); PLATELET COUNT 399 10^3/uL (130-400); RED BLOOD COUNT 3.87 10^6/uL (4.35-5.85); RED CELL DISTRIBUTION WIDTH 12.3 % (10.0-14.5); WHITE BLOOD COUNT 11.3 10^3/uL (4.3-11.0)
[2017-05-05 06:56] LABS: BUN/CREATININE RATIO 14; CALCIUM 10.2 MG/DL (8.5-10.1); CARBON DIOXIDE 27 MMOL/L (21-32); CHLORIDE 102 MMOL/L (98-107); CREATININE SERUM 0.92 MG/DL (0.60-1.30); GFR ESTIMATED > 60; GLUCOSE 108 MG/DL (70-105); POTASSIUM 3.6 MMOL/L (3.6-5.0); SODIUM 138 MMOL/L (135-145)
[2017-05-05 08:00] VITALS: BP 140/70
--- NOTE | 2017-05-05 08:56 | Progress Note-Hospitalist ---
Subjective HPI/CC On Admission Date Seen by Provider: May 05, 2017 Time Seen by Provider: 08:30 Pt is a 76yoCM with a PMH of HTN and recurrent pneumonias who presented to the ER with CC of SOB. He reports he has been dealing with multiple episodes of pneumonia since and was admitted her in early March for pneumonia as well. He has since follow up with Dr Verdugo and underwent bronchoscopy on 04/18 which his daughter reports was "normal." He completed Omnicef on 04/28 and then shortly after began to feel sick again. He had poor appetite, clear/white sputum and SOB. He has 25 steps to walk up at his apartment and was becoming very dyspneic. He also started to have pain with deep breathes prompting him to seek evaluation in the ER. His daughter states he has lost 10lbs since with this. She is also concerned he has asbestosis from his years of working in [employer]. Subjective/Events-last exam Pt reports doing well. Worked with PT in chair yesterday. Ready to get out of bed and walk today as is feeling weak. Did not walk with PT yesterday due to diarrhea. No other concerns. Objective Exam Vital Signs Vital Signs Date Time Temp Pulse Resp B/P (MAP) Pulse Ox O2 Delivery O2 Flow Rate FiO2 04/30/17 10:59 98.6 95 18 142/80 (100) 98 Nasal Cannula 3.00 04/30/17 14:56 32 Capillary Refill : Less Than 3 SecondsLess Than 3 Seconds General Appearance: No Apparent Distress, WD/WN Respiratory: No Accessory Muscle Use, No Respiratory Distress, Wheezing (scant) Cardiovascular: Regular Rate, Rhythm, No Edema, No Murmur Gastrointestinal: Normal Bowel Sounds, Non Tender, Soft Extremity: No Calf Tenderness, No Pedal Edema Neurologic/Psychiatric: Alert, Oriented x3, Normal Mood/Affect Results/Procedures Lab Laboratory Tests 05/05/17 05:37 Patient resulted labs reviewed. Imaging: Reviewed Imaging Report Assessment/Plan Assessment and Plan Assess & Plan/Chief Complaint Pneumonia Diagnosis/Problems Diagnosis/Problems (1) Sepsis Status: Resolved Assessment & Plan: Leukocytosis trended up again and febrile last night Continue Vanc/Merrem Will need care home abx Sputum culture negative x2 Blood cx negative urine legionella and strep pneumo negative Qualifiers: Sepsis type: sepsis due to unspecified organism Qualified Codes: A41.9 - Sepsis, unspecified organism (2) Diarrhea Status: Acute Assessment & Plan: New onset yesterday 6 BMs- loose On probiotic Has been on antibiotics almost consistently since January Will check c diff Qualifiers: Diarrhea type: unspecified type Qualified Codes: R19.7 - Diarrhea, unspecified (3) CAP (community acquired pneumonia) Status: Acute Assessment & Plan: Abx as above On probiotic as well Qualifiers: Laterality: unspecified laterality Qualified Codes: J18.9 - Pneumonia, unspecified organism (4) JOSE R (acute kidney injury) Status: Resolved Assessment & Plan: Resolved (5) Essential (primary) hypertension Status: Chronic Assessment & Plan: BP well controlled currently Will trend (6) Hypercalcemia Assessment & Plan: Mild (7) Prophylactic measure Assessment & Plan: Lovenox Saline lock Reg Diet Clinical Quality Measures DVT/VTE Risk/Contraindication: Risk Factor Score Per Nursin RFS Level Per Nursing on Admit: 4+=Very High LORI GANDHI MD May 05, 2017 8:56 am
[2017-05-05] MEDS: ENOXAPARIN 40 MG/0.4 ML (LOVENOX) SYR SC SCH (09:04)
[2017-05-05] MEDS: FLUTICASONE NASAL SPRAY (FLONASE) 16 GM BTL NS SCH (09:04)
[2017-05-05] MEDS ORDERED: TROUGH ORDER-PHARMACY XX ONE (10:00)
[2017-05-05] MEDS: IBUPROFEN 600 MG (MOTRIN) TAB PO PRN ×2 (10:01→19:56)
[2017-05-05] MEDS: VANCOMYCIN 1250 MG/NS 250 ML IVPB IV SCH ×4 (11:20→22:32)
[2017-05-05 12:00] VITALS: BP 138/70
--- NOTE | 2017-05-05 12:03 | Physical Therapy Daily Note ---
PT Daily Note-Current Subjective Pt. in bed upon arrival and agrees to therapy, reports he needs to use the bathroom first. Mental Status Patient Orientation: Person, Place, Time, Situation Attachments: Oxygen (3L) Transfers Functional [place] Measure 0=Not Assessed/NA 4=Minimal Assistance 1=Total Assistance 5=Supervision or Setup 2=Maximal Assistance 6=Modified [place] 3=Moderate Assistance 7=Complete IndependenceIRFPAI Quality Coding Scale 6 Independent with activity with or without an assistive device 5 Patient requires set up or clean up by helper. Patient completes activity by themselves 4 Supervision or touching assist (CGA). [place] provide cues , steadying assist 3 The helper provides less than half the effort to complete the activity 2 The helper provides more than half the effort to complete the activity 1 Dependent. The helper does all the effort to complete an activity 7 Patient refused to complete or attempt activity 9 The patient did not perform the activity before the current illness or injury 88 Not attempted due to Medical conditions or safety concerns Transfers (B, C, W/C) (FIM): 5 Supine to/from Sit: 6 Sit to/from Stand: 5 toilet transfer SBA, toileting mod I Gait Training Gait (FIM): 5 Distance (FIM): 3=150 ft Distance: 350 ft Gait Level of Assist: 5 Gait Persons Needed: 1 Gait Assistive Device: FWW pt. overall steady with good gait speed, assist with O2 tank Treatments gait Assessment Current Status: Good Progress Pt. did very well with ambulation and transfers. Pt. up in bedside chair post session and encouraged to sit in chair for all meals. Pt. with call light, O2 in situ, and all needs met post session. PT Cut Out Operator Goals Residential Goals PT Cut Out Operator Goals Time Frame: May 10, 2017 Transfers (B,C,W/C) (FIM): 6 Gait (FIM): 6 Gait distance (FIM): 3=150 ft Gait Assistive Device: Cane Single Point PT Plan Treatment/Plan Treatment Plan: Continue Plan of Care Treatment Plan: Bed Mobility, Education, Functional Activity Bao, Functional Strength, Gait, Safety, Therapeutic Exercise, Transfers Treatment Duration: May 10, 2017 Frequency: 6 times per week Estimated Hrs Per Day: .25 hour per day Patient and/or Family Agrees t: Yes Time/GCodes Time In: 945 Time Out: 956 Total Billed Treatment Time: 11 Total Billed Treatment 1, GT 11' MADI,PARVEEN PT May 05, 2017 12:03
[2017-05-05 15:30] VITALS: BP 146/81
[2017-05-05 19:45] VITALS: BP 140/84
[2017-05-05] MEDS: ONDANSETRON 4 MG/2 ML (SDV) Z0FRAN IV PRN (19:56)
[2017-05-05] MEDS: HYDROcodone/APAP 5 MG/325 MG (LORTAB) TAB PO PRN (19:57)
[2017-05-05] MEDS: Bimatoprost (Lumigan) 1 DROP OS SCH (20:00)
[2017-05-06] VITALS: BP 118/63
[2017-05-06] MEDS: RT-ALBUTEROL/IPRATROPIUM 3 ML (DUONEB) VIAL INH SCH ×4 (01:28→21:26)
[2017-05-06 04:00] VITALS: BP 125/74
[2017-05-06] MEDS: LACTOBACILLUS Acidoph/Bulgar (LACTINEX/FLORANEX) TAB PO SCH ×3 (05:01→16:29)
[2017-05-06] MEDS: PANTOPRAZOLE 20 MG TABLET (PROTONIX) PO SCH (05:01)
[2017-05-06] MEDS: MEROPENEM 500 MG in NS (IVPB) 100 ML IV SCH ×4 (05:01→23:54)
[2017-05-06 08:00] VITALS: BP 141/77
[2017-05-06] MEDS: FLUTICASONE NASAL SPRAY (FLONASE) 16 GM BTL NS SCH (08:28)
[2017-05-06] MEDS: ENOXAPARIN 40 MG/0.4 ML (LOVENOX) SYR SC SCH (08:28)
[2017-05-06] MEDS: IBUPROFEN 600 MG (MOTRIN) TAB PO PRN ×2 (08:28→17:42)
[2017-05-06] MEDS: VANCOMYCIN 1250 MG/NS 250 ML IVPB IV SCH ×4 (11:16→22:33)
--- NOTE | 2017-05-06 11:53 | Progress Note-Hospitalist ---
Subjective HPI/CC On Admission Date Seen by Provider: May 06, 2017 Time Seen by Provider: 11:51 Pt is a 76yoCM with a PMH of HTN and recurrent pneumonias who presented to the ER with CC of SOB. He reports he has been dealing with multiple episodes of pneumonia since and was admitted her in early March for pneumonia as well. He has since follow up with Dr Verdugo and underwent bronchoscopy on 04/18 which his daughter reports was "normal." He completed Omnicef on 04/28 and then shortly after began to feel sick again. He had poor appetite, clear/white sputum and SOB. He has 25 steps to walk up at his apartment and was becoming very dyspneic. He also started to have pain with deep breathes prompting him to seek evaluation in the ER. His daughter states he has lost 10lbs since with this. She is also concerned he has asbestosis from his years of working in [employer]. Subjective/Events-last exam Pt reports doing well. No complaints. Did have fever overnight but feeling well today. Eating well. Diarrhea resolving. Objective Exam Vital Signs Vital Signs Date Time Temp Pulse Resp B/P (MAP) Pulse Ox O2 Delivery O2 Flow Rate FiO2 04/30/17 10:59 98.6 95 18 142/80 (100) 98 Nasal Cannula 3.00 04/30/17 14:56 32 Capillary Refill : Less Than 3 SecondsLess Than 3 Seconds General Appearance: No Apparent Distress, WD/WN Respiratory: No Accessory Muscle Use, No Respiratory Distress, Crackles ( bilateral) Cardiovascular: Regular Rate, Rhythm, No Murmur Gastrointestinal: Normal Bowel Sounds, Non Tender, Soft Extremity: No Calf Tenderness, No Pedal Edema Neurologic/Psychiatric: Alert, Oriented x3, Normal Mood/Affect Results/Procedures Lab Patient resulted labs reviewed. Imaging: Reviewed Imaging Report Assessment/Plan Assessment and Plan Assess & Plan/Chief Complaint Pneumonia Diagnosis/Problems Diagnosis/Problems (1) Sepsis Status: Resolved Assessment & Plan: Intermittant fevers Continue Vanc/Merrem Will need custodial abx Would like to deescalate to just Merrem but would prefer afebrile for 24 before doing so Sputum culture negative x2 Blood cx negative urine legionella and strep pneumo negative Will place swing evaluation for tomorrow for continue IV abx Qualifiers: Sepsis type: sepsis due to unspecified organism Qualified Codes: A41.9 - Sepsis, unspecified organism (2) Diarrhea Status: Acute Assessment & Plan: Slowing On probiotic Has been on antibiotics almost consistently since January c diff indeterminate- sent for confirmatory testing Qualifiers: Diarrhea type: unspecified type Qualified Codes: R19.7 - Diarrhea, unspecified (3) CAP (community acquired pneumonia) Status: Acute Assessment & Plan: Abx as above On probiotic as well Qualifiers: Laterality: unspecified laterality Qualified Codes: J18.9 - Pneumonia, unspecified organism (4) JOSE R (acute kidney injury) Status: Resolved Assessment & Plan: Resolved (5) Essential (primary) hypertension Status: Chronic Assessment & Plan: BP well controlled currently Will trend (6) Hypercalcemia Assessment & Plan: Mild (7) Prophylactic measure Assessment & Plan: Lovenox Saline lock Reg Diet Clinical Quality Measures DVT/VTE Risk/Contraindication: Risk Factor Score Per Nursin RFS Level Per Nursing on Admit: 4+=Very High LORI GANDHI MD May 06, 2017 11:53 am
[2017-05-06 12:00] VITALS: BP 138/67
[2017-05-06 16:45] VITALS: BP 137/70
[2017-05-06] MEDS: HYDROcodone/APAP 5 MG/325 MG (LORTAB) TAB PO PRN (18:54)
[2017-05-06] MEDS: ONDANSETRON 4 MG/2 ML (SDV) Z0FRAN IV PRN (18:54)
[2017-05-06 20:00] VITALS: BP 145/80
[2017-05-06] MEDS: Bimatoprost (Lumigan) 1 DROP OS SCH (20:47)
[2017-05-07] VITALS: BP 120/61
[2017-05-07] MEDS: RT-ALBUTEROL/IPRATROPIUM 3 ML (DUONEB) VIAL INH SCH ×2 (01:36→06:08)
[2017-05-07 04:00] VITALS: BP 153/75
[2017-05-07] MEDS: LACTOBACILLUS Acidoph/Bulgar (LACTINEX/FLORANEX) TAB PO SCH ×2 (05:13→11:09)
[2017-05-07] MEDS: MEROPENEM 500 MG in NS (IVPB) 100 ML IV SCH ×2 (05:13→11:09)
[2017-05-07] MEDS: PANTOPRAZOLE 20 MG TABLET (PROTONIX) PO SCH (05:14)
[2017-05-07 06:19] LABS: BASOPHILS # (AUTO) 0.1 10^3/uL (0.0-0.1); BASOPHILS % (AUTO) 1 % (0-10); EOSINOPHILS # (AUTO) 0.5 10^3/uL (0.0-0.3); EOSINOPHILS % (AUTO) 5 % (0-10); HEMATOCRIT 33 % (40-54); HEMOGLOBIN 11.7 G/DL (13.3-17.7); LYMPHOCYTES # (AUTO) 0.5 X 10^3 (1.0-4.0); LYMPHOCYTES % (AUTO) 4 % (12-44); MEAN CORPUSCULAR HEMOGLOBIN 32 PG (25-34); MEAN CORPUSCULAR HGB CONC 35 G/DL (32-36); MEAN CORPUSCULAR VOLUME 92 FL (80-99); MEAN PLATELET VOLUME 9.6 FL (7.4-10.4); MONOCYTES # (AUTO) 1.4 X 10^3 (0.0-1.0); MONOCYTES % (AUTO) 13 % (0-12); NEUTROPHILS # (AUTO) 8.5 X 10^3 (1.8-7.8); NEUTROPHILS % (AUTO) 78 % (42-75); PLATELET COUNT 442 10^3/uL (130-400); RED BLOOD COUNT 3.63 10^6/uL (4.35-5.85); RED CELL DISTRIBUTION WIDTH 12.3 % (10.0-14.5)
[2017-05-07 06:34] LABS: BUN/CREATININE RATIO 17; CARBON DIOXIDE 27 MMOL/L (21-32); CHLORIDE 102 MMOL/L (98-107); CREATININE SERUM 0.95 MG/DL (0.60-1.30); GFR ESTIMATED > 60; GLUCOSE 111 MG/DL (70-105); POTASSIUM 3.9 MMOL/L (3.6-5.0); SODIUM 136 MMOL/L (135-145)
[2017-05-07 08:00] VITALS: BP 162/88
--- NOTE | 2017-05-07 08:04 | Pulmonary Progress Note ---
Subjective Time Seen by Provider: 08:04 Subjective/Events-last exam pt feels worse today. Exam Exam Vital Signs Date Time Temp Pulse Resp B/P (MAP) Pulse Ox O2 Delivery O2 Flow Rate FiO2 05/07/17 07:00 89 05/07/17 06:11 76 Nasal Cannula 3.00 05/07/17 04:00 97.5 92 20 153/75 (101) 94 Nasal Cannula 3.00 05/07/17 01:36 93 Nasal Cannula 3.00 05/07/17 01:00 95 05/07/17 00:00 98.4 88 18 120/61 (80) 93 Nasal Cannula 3.00 05/06/17 21:26 95 Nasal Cannula 3.00 05/06/17 20:00 99.9 93 20 145/80 (101) 94 Nasal Cannula 3.00 05/06/17 20:00 Nasal Cannula 3.00 05/06/17 19:00 95 05/06/17 16:45 98.8 94 20 137/70 (92) 96 Nasal Cannula 3.00 05/06/17 15:42 94 Nasal Cannula 3.00 05/06/17 14:10 93 94 32 05/06/17 13:00 90 05/06/17 12:00 98.6 78 18 138/67 (90) 98 Nasal Cannula 3.00 05/06/17 09:48 Nasal Cannula 3.00 I & O 05/07/17 07:00 Intake Total 2606.5 ml Output Total 800 ml Balance 1806.5 ml General Appearance: No Apparent Distress, WD/WN HEENT: PERRL/EOMI, Moist Mucous Membranes Neck: Non Tender, Supple Respiratory: No Accessory Muscle Use, No Respiratory Distress, Crackles ( bilateral) Cardiovascular: Regular Rate, Rhythm, No Murmur Capillary Refill: Less Than 3 Seconds Gastrointestinal: normal bowel sounds, non tender Extremity: No Calf Tenderness, No Pedal Edema Neurologic/Psychiatric: Alert, Oriented x3, Normal Mood/Affect Skin: Normal Color, Warm/Dry Results Lab Laboratory Tests 05/07/17 06:00 Assessment/Plan Assessment/Plan Pneumonia with sepsis -Continue Abx merrem -await neumann cultures -repeat CXR ILD with pulmonary fibrosis s/p bronchoscopy - Hypercalcemia CXR and labs reviewed. 232 PHIL KEANE DO May 07, 2017 08:04
[2017-05-07] MEDS: FLUTICASONE NASAL SPRAY (FLONASE) 16 GM BTL NS SCH (09:11)
[2017-05-07] MEDS: IBUPROFEN 600 MG (MOTRIN) TAB PO PRN (09:11)
[2017-05-07] MEDS: ENOXAPARIN 40 MG/0.4 ML (LOVENOX) SYR SC SCH (09:11)
--- NOTE | 2017-05-07 09:11 | Diagnostic Imaging Report ---
INDICATION: Followup pneumonia. TIME OF EXAM: 9:22 AM Correlation is made with prior study from 05/03/2017. FINDINGS: Heart size is stable. Moderate to large left effusion appears stable. There is infiltrate throughout the right lung with a moderate-sized right pleural effusion. No pneumothorax is seen. IMPRESSION: No significant change in bilateral infiltrates and effusions when compared with exam 4 days earlier. Dictated by: Dictated on workstation # [id number]
--- NOTE | 2017-05-07 11:41 | Physical Therapy Daily Note ---
PT Daily Note-Current Subjective Patient agrees to PT. Pain Numeric Pain Scale: 3 Location: Left Location Body Site: Side Pain Description: Pressure Mental Status Patient Orientation: Normal For Age Attachments: Oxygen Transfers Functional [place] Measure 0=Not Assessed/NA 4=Minimal Assistance 1=Total Assistance 5=Supervision or Setup 2=Maximal Assistance 6=Modified [place] 3=Moderate Assistance 7=Complete IndependenceIRFPAI Quality Coding Scale 6 Independent with activity with or without an assistive device 5 Patient requires set up or clean up by helper. Patient completes activity by themselves 4 Supervision or touching assist (CGA). [place] provide cues , steadying assist 3 The helper provides less than half the effort to complete the activity 2 The helper provides more than half the effort to complete the activity 1 Dependent. The helper does all the effort to complete an activity 7 Patient refused to complete or attempt activity 9 The patient did not perform the activity before the current illness or injury 88 Not attempted due to Medical conditions or safety concerns Transfers (B, C, W/C) (FIM): 6 Scootin Rollin Supine to/from Sit: 6 Sit to/from Stand: 6 Gait Training Gait (FIM): 6 Distance (FIM): 3=150 ft Distance: 350' Gait Level of Assist: 6 Gait Assistive Device: FWW safe and functional with FWW and O2. PT educated patient and family on ambulating PRN in hallway to improve pulmonary function. Exercises Seated Therapy Exercises: Ankle pumps, Long arc quads, Hip flexion Seated Reps: 20 Assessment Patient is up in recliner with needs met. Patient to ambulate PRN in hallway with nursing staff or family with O2 3L NC PT Board Runner Goals Board Runner Goals PT Half-Way Goals Time Frame: May 10, 2017 Transfers (B,C,W/C) (FIM): 6 Gait (FIM): 6 Gait distance (FIM): 3=150 ft Gait Assistive Device: Cane Single Point PT Plan Treatment/Plan Treatment Plan: Continue Plan of Care Treatment Plan: Bed Mobility, Education, Functional Activity Bao, Functional Strength, Gait, Safety, Therapeutic Exercise, Transfers Treatment Duration: May 10, 2017 Frequency: 6 times per week Estimated Hrs Per Day: .25 hour per day Patient and/or Family Agrees t: Yes Time/GCodes Time In: 1020 Time Out: 1030 Total Billed Treatment Time: 10 Total Billed Treatment 1 visit FA 10 min ELIZABET NGUYEN PT May 07, 2017 11:41
[2017-05-07 12:00] VITALS: BP 165/80
--- NOTE | 2017-05-07 14:38 | Progress Note-Hospitalist ---
Progress Note HPI/CC on Admission . Pt is a 76yoCM with a PMH of HTN and recurrent pneumonias who presented to the ER with CC of SOB. He reports he has been dealing with multiple episodes of pneumonia since and was admitted her in early March for pneumonia as well. He has since follow up with Dr Verdugo and underwent bronchoscopy on 04/18 which his daughter reports was "normal." He completed Omnicef on 04/28 and then shortly after began to feel sick again. He had poor appetite, clear/white sputum and SOB. He has 25 steps to walk up at his apartment and was becoming very dyspneic. He also started to have pain with deep breathes prompting him to seek evaluation in the ER. His daughter states he has lost 10lbs since with this. She is also concerned he has asbestosis from his years of working in [employer] 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 He has had multiple recent admissions with the diagnosis of pneumonia. He was again admitted on 04/30 with a diagnosis of pneumonia. Examination of the x-rays by radiology and also by my perusal show no change during his hospitalization and indeed no change since his previous x- ray on 04/18. His laboratory and admission showed a white count of 11,000 which has been stable. His initial creatinine was 1.41 and with hydration has fallen to 0.95 suggesting dehydration he has been basically afebrile during his stay. Physical exam: The patient is sitting in the chair at bedside. Nasal cannula oxygen is in place. He appears dyspneic at rest. He is able to speak in short sentences. Lungs show distant breath sounds and dullness in the bases. CV is regular. Ankles show no pedal edema. Impression: Hypoxia. 2.stable bibasilar process suggesting the possibility of pulmonary fibrosis. Plan: Changed to swing bed status. Consider options relative to the possibility of laparoscopic pulmonary biopsy Progress Notes/Assess & Plan Date Seen 05/07/17 Time Seen by Provider: 14:15 ASHLEY MOCK MD May 07, 2017 14:38
== END 2017-05-07 13:25 | disposition swing bed (61) | DRG 871 ==
LOC: EDUNIT# 10:38 → ER 10:40 → 4TH 12:06
PROVIDERS: ADMIT Family Medicine; ATTEND Family Medicine
DX: A41.9 Sepsis, unspecified organism (principal); R65.20 Severe sepsis without septic shock; J18.9 Pneumonia, unspecified organism; N17.9 Acute kidney failure, unspecified; J84.10 Pulmonary fibrosis, unspecified; R19.7 Diarrhea, unspecified; E86.0 Dehydration; I10 Essential (primary) hypertension; J44.9 Chronic obstructive pulmonary disease, unspecified; K21.9 Gastro-esophageal reflux disease without esophagitis; E83.52 Hypercalcemia; H40.9 Unspecified glaucoma; J30.2 Other seasonal allergic rhinitis; Z99.81 Dependence on supplemental oxygen; Z87.891 Personal history of nicotine dependence
CPT/HCPCS: 36415; 71045; 71046; 80048; 80053; 80202; 82330; 83605; 83880; 83970; 85007; 85025; 85027; 87040; 87070; 87081; 87205; 87324; 87449; 87493; 87804; 87899; 94640; 94664; 94760; 96365

== ENCOUNTER 2017-05-07 13:03 | Inpatient (IN) | payer MEDICARE ==
[~2017-05-07] VITALS: Ht 188 cm; Wt 93.0 kg
[~2017-05-07 13:03] MED LIST changes: +FLUT16SP22 NSEACH
[2017-05-07] MEDS ORDERED: ENOXAPARIN 40 MG/0.4 ML (LOVENOX) SYR SC SCH (13:30)
[2017-05-07] MEDS ORDERED: LOPERAMIDE 2 MG (IMODIUM) CAP PO PRN (13:30)
[2017-05-07] MEDS ORDERED: ONDANSETRON 4 MG/2 ML (SDV) Z0FRAN IV PRN (13:30)
[2017-05-07] MEDS ORDERED: PATIENT MAY USE OWN MED,SINGLE MED PO SCH (13:30)
[2017-05-07] MEDS ORDERED: MILK OF MAGNESIA 400 MG/5 ML 30 ML UDC PO PRN (13:30)
[2017-05-07] MEDS ORDERED: ACETAMINOPHEN 325 MG TABLET/CAPLET (TYLENOL) PO PRN (13:30)
[2017-05-07] MEDS: RT-ALBUTEROL/IPRATROPIUM 3 ML (DUONEB) VIAL INH SCH ×2 (14:35→20:47)
[2017-05-07] MEDS: MEROPENEM 500 MG in NS (IVPB) 100 ML IV SCH ×2 (16:58→23:42)
[2017-05-07] MEDS: LACTOBACILLUS Acidoph/Bulgar (LACTINEX/FLORANEX) TAB PO SCH (16:58)
[2017-05-07] MEDS: IBUPROFEN 600 MG (MOTRIN) TAB PO PRN (17:46)
[2017-05-07] MEDS: amLODIPine 5 MG (NORVASC) TAB PO SCH (17:46)
[2017-05-07 17:50] VITALS: BP 162/85
[2017-05-07] MEDS: LUMIGAN 0.01% OPTH SOLN OS SCH (22:10)
[2017-05-08] MEDS: RT-ALBUTEROL/IPRATROPIUM 3 ML (DUONEB) VIAL INH SCH ×4 (03:17→21:16)
[2017-05-08 06:00] VITALS: BP 150/87
[2017-05-08] MEDS: MEROPENEM 500 MG in NS (IVPB) 100 ML IV SCH ×4 (06:02→23:38)
[2017-05-08] MEDS: LACTOBACILLUS Acidoph/Bulgar (LACTINEX/FLORANEX) TAB PO SCH ×3 (06:02→17:12)
[2017-05-08] MEDS: PANTOPRAZOLE 20 MG TABLET (PROTONIX) PO SCH (06:02)
[2017-05-08] MEDS: ENOXAPARIN 40 MG/0.4 ML (LOVENOX) SYR SC SCH (08:17)
[2017-05-08] MEDS: FLUTICASONE NASAL SPRAY (FLONASE) 16 GM BTL NS SCH (08:17)
[2017-05-08] MEDS: amLODIPine 5 MG (NORVASC) TAB PO SCH (08:17)
--- NOTE | 2017-05-08 08:44 | Pulmonary Progress Note ---
Subjective Time Seen by Provider: 07:34 Exam Exam Vital Signs Date Time Temp Pulse Resp B/P (MAP) Pulse Ox O2 Delivery O2 Flow Rate FiO2 05/08/17 06:00 98.6 106 16 150/87 (108) 94 Nasal Cannula 3.00 05/08/17 03:18 95 Nasal Cannula 3.00 05/08/17 00:00 98.4 05/07/17 20:47 94 Nasal Cannula 3.00 05/07/17 20:05 Nasal Cannula 3.00 05/07/17 20:05 98.6 05/07/17 17:50 99.6 104 18 162/85 (110) 97 Nasal Cannula 3.00 05/07/17 14:36 93 Nasal Cannula 3.00 I & O 05/08/17 07:00 Intake Total 2170 ml Output Total 1100 ml Balance 1070 ml General Appearance: Anxious HEENT: Pharynx Normal Neck: Full Range of Motion, Normal Inspection, Non Tender, Supple Respiratory: No Accessory Muscle Use, No Respiratory Distress, Decreased Breath Sounds Cardiovascular: Regular Rate, Rhythm, No Edema, No Gallop, No JVD Gastrointestinal: normal bowel sounds, non tender, soft, no organomegaly Extremity: Normal Capillary Refill, Normal Inspection, Normal Range of Motion Neurologic/Psychiatric: Alert, Oriented x3 Skin: Normal Color, Warm/Dry Lymphatic: No Adenopathy Assessment/Plan Assessment/Plan Pneumonia with sepsis -Continue Abx merrem -Solumedrol 120mg IV Q6 -lasix 40mg IV X1 - neumann cultures negative -repeat CT today ILD with pulmonary fibrosis s/p bronchoscopy - Hypercalcemia CXR and labs reviewed. Advance Care discuss with: patient, family member (s) Advance Care Discussion: initiate discussion, clarifying prognosis, identified end-of-life goals, developed treatment plan Time spent on discussion(mins): 60 PHIL KEANE DO May 08, 2017 08:44
[2017-05-08] MEDS ORDERED: KCL 20 MEQ TAB (K-DUR) PO NR (08:45)
[2017-05-08] MEDS ORDERED: FUROSEMIDE 40 MG/4 ML INJ (LASIX) IVP NR (09:15)
[2017-05-08] MEDS: methylPREDNISolone 125 MG (Solu-MEDROL) VIAL IVP SCH ×3 (09:30→23:38)
[2017-05-08] MEDS ORDERED: IOHEXOL 350 MG/ML 100 ML (OMNIPAQUE 350) VIAL IV ONE (10:30)
[2017-05-08] MEDS ORDERED: NS 250 ML (IVPB) BAG IV ONE (10:30)
[2017-05-08] MEDS ORDERED: RECEIVED CONTRAST (Hold Metformin) IV SCH (10:45)
--- NOTE | 2017-05-08 13:55 | Physical Therapy Evaluation ---
PT Evaluation-General Medical Diagnosis Admission Date May 07, 2017 at 13:40 Medical Diagnosis: pneumonia Onset Date: Apr 30, 2017 Therapy Diagnosis Therapy Diagnosis: debility Height/Weight Height (Feet): 6 Height (Inches): 2.00 Weight (Pounds): 205 Weight (Ounces): 0.0 Precautions Precautions/Isolations: Fall Prevention, Standard Precautions Weight Bear Status Right Lower Extremity: Right Full Weight Bearing Left Lower Extremity: Left Full Weight Bearing Referral Physician: Jesica Reason for Referral: Evaluation/Treatment Medical History Pertinent Medical History: COPD, GERD, HTN Current History SWB status Reviewed History: Yes Social History Home: Apartment Current Living Status: Alone Entry Into Home: Stairs With Railing PT Steps Into Home: 25 Prior/Core FIM Prior Level of Function Functional [place] Measure 0=Not Assessed/NA 4=Minimal Assistance 1=Total Assistance 5=Supervision or Setup 2=Maximal Assistance 6=Modified [place] 3=Moderate Assistance 7=Complete [place] Bed Mobility: 7 Transfers (B,C,W/C) (FIM): 7 Gait: 7 PT Evaluation-Current Subjective Patient reluctantly agrees to PT. Pain Numeric Pain Scale: 0-No Pain Location: No Pain Reported Objective Patient Orientation: Normal For Age Problem Solving: Good Attachments: Oxygen (3L at rest/5L with activity) ROM/Strength ROM Lower Extremities bilateral Le WNL Strenght Lower Extremities right knee flexion/extension 5/5; hip flexion 5/5; DF/PF 5/5 left knee flexion/extension 5/5; hip flexion 5/5; DF/PF 5/5 Integumentary/Posture Integumentary refer to nursing notes Bowel Incontinence: No Bladder Incontinence: No Posture WNL Neuromuscular (Tone, Coordination, Reflexes) grossly intact Sensory Vision: Wears Glasses Hearing: Functional Sensation Right Lower Extremit: Intact Sensation Left Lower Extremity: Intact Transfers Functional [place] Measure 0=Not Assessed/NA 4=Minimal Assistance 1=Total Assistance 5=Supervision or Setup 2=Maximal Assistance 6=Modified [place] 3=Moderate Assistance 7=Complete [place] Transfers (B, C, W/C) (FIM): 6 Scootin Rollin Supine to/from Sit: 6 Sit to/from Stand: 6 Sit to Lying (QC): 6 Lying to Sitting/Side of Bed(Q: 6 Sit to Stand (QC): 6 Gait Does the Patient Walk?: Yes Mode of Locomotion: Walk Anticipated Mode of Locomotion: Walk Gait (FIM): 6 Distance (FIM): 3=150 ft Distance: 400' Walk 50 ft with 2 Turns(QC): 6 Walk 150 ft (QC): 6 Gait Level of Assist: 6 Gait Assistive Device: FWW Comments/Gait Description assist for O2 tank Balance Sitting Static: Normal Sitting Dynamic: Normal Standing Static: Normal Standing Dynamic: Normal Treatment SAO2 monitored during ambulation with FWW and O2 5L NC with patient decreasing to 84% with quick recovery (~1 min) to 91% and placed on 3L. Assessment/Needs 76 y.o. male, will benefit from short term skilled PT to address pulmonary function with functional mobility to improve status to return to home at maximum LOF. Rehab Potential: Guarded PT [facility] Goals [facility] Goals PT [facility] Goals Time Frame: May 18, 2017 Transfers (B,C,W/C) (FIM): 7 Sit to Lying (QC): 6 Lying-Sitting on Side/Bed(QC): 6 Sit to Stand (QC): 6 Rollin Chair/Dbb-ad-Zrqie Xfer(QC): 6 Does the Patient Walk: Yes Gait (FIM): 6 Gait distance (FIM): 3=150 ft Distance: 400' Walk 50ft with 2 Turns (QC): 6 Walk 150 ft (QC): 6 Gait Level of Assist: 6 Gait Assistive Device: FWW Stairs (FIM): 6 # of Steps: 25 Stairs Level Of Assist: 6 PT Plan Problem List Problem List: Activity Tolerance Treatment/Plan Treatment Plan: Continue Plan of Care Treatment Plan: Education, Functional Activity Bao, Functional Strength, Gait , Safety, Therapeutic Exercise, Transfers Treatment Duration: May 18, 2017 Frequency: 6 times per week Estimated Hrs Per Day: .25 hour per day Patient and/or Family Agrees t: Yes Time/GCodes Time In: 1322 Time Out: 1345 Total Billed Treatment Time: 23 Total Billed Treatment 1 visit [place] 8 min FA 15 min ELIZABET NGUYEN PT May 08, 2017 13:55
--- NOTE | 2017-05-08 14:07 | Diagnostic Imaging Report ---
PROCEDURE: CT chest with contrast only. TECHNIQUE: Multiple contiguous axial images were obtained through the chest after administration of intravenous contrast. INDICATION: Coughing, shortness of breath. COMPARISON: 04/05/2017. FINDINGS: There is increased left-sided pleural effusion. There are chronic peripheral parenchymal hyperdensities involving left greater than right lower lobes which may reflect old aspiration sequelae. There is some ground-glass infiltrate involving the right lower lobe, unchanged. There is passive atelectasis in much of the left lower lobe and dependent lingular segment of the left upper lobe. The consolidation showed air bronchograms, and the overall pattern is very similar to the previous study aside from progressive pleural fluid load. Subpleural fibrotic changes in the upper lobes are stable. There is no pneumothorax. Large hiatal hernia is stable. There is cholelithiasis noted. IMPRESSION: Increased left pleural effusion. Fibrotic change, ground-glass opacities, and lingular and left lower lobe consolidations with air bronchograms are unchanged. No new abnormality. Large hiatal hernia redemonstrated. Cholelithiasis with a nonacute appearing partially visualized upper abdomen. Dictated by: Dictated on workstation # [id number]
[2017-05-08 17:35] VITALS: BP 132/72
[2017-05-08] MEDS: LUMIGAN 0.01% OPTH SOLN OS SCH (21:20)
[2017-05-08] MEDS: IBUPROFEN 600 MG (MOTRIN) TAB PO PRN (22:44)
[2017-05-09] MEDS: BENZONATATE 100 MG (TESSALON) CAPSULE PO PRN ×3 (00:21→21:14)
[2017-05-09] MEDS: RT-ALBUTEROL/IPRATROPIUM 3 ML (DUONEB) VIAL INH SCH ×4 (02:24→20:52)
[2017-05-09 05:51] VITALS: BP 133/83
[2017-05-09] MEDS: PANTOPRAZOLE 20 MG TABLET (PROTONIX) PO SCH (06:02)
[2017-05-09] MEDS: MEROPENEM 500 MG in NS (IVPB) 100 ML IV SCH ×4 (06:02→23:40)
[2017-05-09] MEDS: methylPREDNISolone 125 MG (Solu-MEDROL) VIAL IVP SCH ×4 (06:02→23:40)
[2017-05-09] MEDS: LACTOBACILLUS Acidoph/Bulgar (LACTINEX/FLORANEX) TAB PO SCH ×3 (06:02→16:58)
--- NOTE | 2017-05-09 06:03 | Pulmonary Progress Note ---
Subjective Time Seen by Provider: 06:51 Subjective/Events-last exam Daughter at bedside. PT feels sightly better today. CT scan reviewed and shows left pleural effusion. Exam Exam Vital Signs Date Time Temp Pulse Resp B/P (MAP) Pulse Ox O2 Delivery O2 Flow Rate FiO2 05/09/17 05:51 97.5 95 18 133/83 (100) 92 Nasal Cannula 3.00 05/09/17 02:25 96 Nasal Cannula 3.00 05/09/17 00:00 99.0 05/08/17 21:16 95 Nasal Cannula 3.00 05/08/17 19:45 Nasal Cannula 3.00 05/08/17 17:35 97.8 108 18 132/72 (92) 96 Nasal Cannula 3.00 05/08/17 16:10 99.5 05/08/17 15:33 95 Nasal Cannula 3.00 05/08/17 10:07 93 Nasal Cannula 3.00 05/08/17 08:00 93 Nasal Cannula 3.00 05/08/17 06:00 98.6 106 16 150/87 (108) 94 Nasal Cannula 3.00 I & O 05/09/17 07:00 Intake Total 2820 ml Output Total 700 ml Balance 2120 ml General Appearance: Anxious, Mild Distress HEENT: TMs Normal, Pharynx Normal Neck: Normal Inspection, Non Tender, Supple Respiratory: No Accessory Muscle Use, No Respiratory Distress, Decreased Breath Sounds Cardiovascular: Regular Rate, Rhythm, No Edema Gastrointestinal: normal bowel sounds, non tender, soft Extremity: Normal Capillary Refill, Normal Inspection, Normal Range of Motion Neurologic/Psychiatric: Alert, Oriented x3 Skin: Normal Color, Warm/Dry Assessment/Plan Assessment/Plan Pneumonia with sepsis -Continue Abx merrem -Solumedrol 120mg IV Q6 -lasix 40mg IV X1 - neumann cultures negative -repeat CT today Left pleural effusion -Will consult radiology for thoracentesis ILD with pulmonary fibrosis s/p bronchoscopy - Hypercalcemia CXR and labs reviewed. Daughter at bedside. I discussed with patient and family patients current condition and treatment plan. They agree to thoracentesis if indicated. Pt does feel better today c/w yesterday. total time spent with patient discussing care plan and medical condition is 30min. PHIL KEANE DO May 09, 2017 06:03
[2017-05-09 06:35] LABS: BASOPHILS % (AUTO) 0 % (0-10); EOSINOPHILS % (AUTO) 0 % (0-10); HEMATOCRIT 37 % (40-54); HEMOGLOBIN 12.7 G/DL (13.3-17.7); LYMPHOCYTES # (AUTO) 0.3 X 10^3 (1.0-4.0); LYMPHOCYTES % (AUTO) 1 % (12-44); MEAN CORPUSCULAR HEMOGLOBIN 32 PG (25-34); MEAN CORPUSCULAR HGB CONC 35 G/DL (32-36); MEAN CORPUSCULAR VOLUME 92 FL (80-99); MEAN PLATELET VOLUME 9.2 FL (7.4-10.4); MONOCYTES # (AUTO) 0.6 X 10^3 (0.0-1.0); MONOCYTES % (AUTO) 3 % (0-12); NEUTROPHILS % (AUTO) 96 % (42-75); PLATELET COUNT 574 10^3/uL (130-400); RED CELL DISTRIBUTION WIDTH 12.1 % (10.0-14.5)
[2017-05-09 06:59] LABS: ALANINE AMINOTRANSFERASE 36 U/L (0-55); ALBUMIN 3.3 GM/DL (3.2-4.5); ALKALINE PHOSPHATASE 105 U/L (40-136); BILIRUBIN,TOTAL 0.4 MG/DL (0.1-1.0); BUN/CREATININE RATIO 20; CALCIUM 11.2 MG/DL (8.5-10.1); CARBON DIOXIDE 29 MMOL/L (21-32); CHLORIDE 98 MMOL/L (98-107); CREATININE SERUM 1.04 MG/DL (0.60-1.30); GFR ESTIMATED > 60; GLUCOSE 165 MG/DL (70-105); MAGNESIUM 1.9 MG/DL (1.8-2.4); PHOSPHORUS 3.8 MG/DL (2.3-4.7); POTASSIUM 4.1 MMOL/L (3.6-5.0); SODIUM 137 MMOL/L (135-145); TOTAL PROTEIN 6.7 GM/DL (6.4-8.2)
[2017-05-09 07:43] LABS: BAND NEUTROPHILS 0 %; BASOPHILS % (MANUAL) 0 %; EOSINOPHILS % (MANUAL) 0 %; HYPERSEGMENTED NEUT MODERATE; LYMPHOCYTES % (MANUAL) 5 %; MONOCYTES % (MANUAL) 1 %; NEUTROPHILS % (MANUAL) 94 %; RBC MORPH NORMAL
[2017-05-09] MEDS ORDERED: LIDOCAINE 1% INJ 50 ML (XYLOCAINE) VIAL ONE (08:14)
--- NOTE | 2017-05-09 08:43 | Diagnostic Imaging Report ---
Indication: Left pleural effusion, status post thoracentesis. Time of exam 8:58 AM Correlation is made with prior study from 05/07/2017. There has been significant reduction in left-sided pleural effusion, status post thoracentesis. No pneumothorax is identified. Extensive bilateral infiltrates persist. Impression: Reduction in left pleural effusion, status post thoracentesis. No pneumothorax is identified. Dictated by: Dictated on workstation # [id number]
[2017-05-09] MEDS: amLODIPine 5 MG (NORVASC) TAB PO SCH (08:49)
[2017-05-09] MEDS: HYDROcodone/APAP 5 MG/325 MG (LORTAB) TAB PO PRN ×2 (08:53→21:14)
[2017-05-09] MEDS: FLUTICASONE NASAL SPRAY (FLONASE) 16 GM BTL NS SCH (08:53)
--- NOTE | 2017-05-09 08:53 | Progress Note-Pre Operative ---
Pre-Operative Progress Note H&P Reviewed The H&P was reviewed, patient examined and no changes noted. Date Seen by Provider: May 09, 2017 Time Seen by Provider: 08:00 Date H&P Reviewed: May 09, 2017 Time H&P Reviewed: 08:00 Pre-Operative Diagnosis: Pleural effusion KASSIE CHEN MD May 09, 2017 08:53
[2017-05-09] MEDS ORDERED: LIDOCAINE 1% INJ 20 ML 20 ML VIAL INJ ONE (09:00)
[2017-05-09] MEDS: ENOXAPARIN 40 MG/0.4 ML (LOVENOX) SYR SC SCH (09:01)
--- NOTE | 2017-05-09 09:45 | Diagnostic Imaging Report ---
INDICATION: Left pleural effusion. FINDINGS: Patient was brought to the procedure room, placed in the bed in a sitting upright position. Ultrasound imaging over the left posterior thorax was performed to evaluate appropriate entry site. Left posterior thorax was prepped and draped in usual sterile fashion, small amount of 1% lidocaine was utilized for local anesthesia. Thoracentesis catheter was advanced into the posterior pleural space on the left. Total of 750 mL of red-tinged fluid was removed. Catheter was withdrawn, hemostasis was obtained. Patient tolerated the procedure well and was sent for post procedure chest radiograph in satisfactory position. Chest radiograph was without complicating feature. IMPRESSION: Ultrasound-guided thoracentesis on the left, obtaining 750 mL of fluid. Dictated by: Dictated on workstation # [id number]
[2017-05-09 10:01] VITALS: BP 133/83
[2017-05-09 10:05] LABS: AMYLASE,BODY FLUID 19 U/L; GLUCOSE,BODY FLUID 140 MG/DL; LDH,BODY FLUID 236 U/L
[2017-05-09] MEDS ORDERED: RT-ALBUTEROL/IPRATROPIUM 3 ML (DUONEB) VIAL INH PRN (10:15)
[2017-05-09 11:10] LABS: BODY FLUID APPEARENCE MOD CLDY; BODY FLUID COLOR AMBER; BODY FLUID SOURCE THORACEN
[2017-05-09 11:11] LABS: BF OTHER CELLS 0 %; BODY FLUID RBC COUNT 11200 /uL; BODY FLUID WBC TOTAL COUNT 250 /uL; LYMPHOCYTES,BODY FLUID 77 %
--- NOTE | 2017-05-09 11:41 | Progress Note-Hospitalist ---
Progress Note Progress Notes/Assess & Plan Date Seen 05/09/17 Time Seen by Provider: 10:00 Assessment & Plan adjunct instructor: Thoracentesis completed on left side by Dr. Verdugo uncomplicated Pt Interview: Pt confirms breathing better today Pt confirms pain from draining the fluid Pt confirms using IS Physical exam stable. Lungs sound perfect Pt confirms BMs, pt admits to 4 times yesterday Pt denies any concerns I reviewed labs and meds in previous notes and imaging scans Patient maintain on oxygen and still short of breath with exertion No fever, vital signs stable, pleasant, oriented 3, family at bedside Regular rate and rhythm, clear to auscultation bilaterally but diminished in the bases and some crackles in the upper lobes with end expiratory phase No edema and normal range of motion Laboratory Tests 05/09/17 06:24 Assessment: Pneumonia on meropenem Left-sided pleural effusion status post thoracentesis uncomplicated today by Dr. Verdugo Severe hypoxia Severe deconditioning Leukocytosis Plan: Continue IS Monitor labs Monitor pt Maintain meropenem antibiotic and follow-up on effusion results Scribed by Jennifer Matthews under direct supervision of Dr. Alis Ely. ALIS ELY DO May 09, 2017 11:41
--- NOTE | 2017-05-09 14:06 | Physical Therapy Daily Note ---
PT Daily Note-Current Subjective Patient in recliner pre tx, agrees to PT. Patient had a thoracentesis earlier today and he says he is doing much better and doesn't have pain unless he breathes deeply. Appearance Patient in recliner post tx with nurse call, phone, tray, all needs met. Mental Status Patient Orientation: Person, Place, Situation Attachments: Oxygen 3L of O2 nasal canula Transfers Functional [place] Measure 0=Not Assessed/NA 4=Minimal Assistance 1=Total Assistance 5=Supervision or Setup 2=Maximal Assistance 6=Modified [place] 3=Moderate Assistance 7=Complete IndependenceIRFPAI Quality Coding Scale 6 Independent with activity with or without an assistive device 5 Patient requires set up or clean up by helper. Patient completes activity by themselves 4 Supervision or touching assist (CGA). [place] provide cues , steadying assist 3 The helper provides less than half the effort to complete the activity 2 The helper provides more than half the effort to complete the activity 1 Dependent. The helper does all the effort to complete an activity 7 Patient refused to complete or attempt activity 9 The patient did not perform the activity before the current illness or injury 88 Not attempted due to Medical conditions or safety concerns Transfers (B, C, W/C) (FIM): 6 Sit to/from Stand: 6 Weight Bearing Right Lower Extremity: Right Full Weight Bearing Left Lower Extremity: Left Full Weight Bearing Gait Training Gait (FIM): 6 Distance: 600' Gait Assistive Device: FWW no LOB or unsteadiness, no SOB Treatments transfers, ambulation Assessment Current Status: Fair Progress patients O2 level was 98% before ambulation and 95% after PT Hand Sprayer Goals [facility] Goals PT [facility] Goals Time Frame: May 18, 2017 Transfers (B,C,W/C) (FIM): 7 Sit to Lying (QC): 6 Lying-Sitting on Side/Bed(QC): 6 Sit to Stand (QC): 6 Rollin Chair/Mby-hu-Undtb Xfer(QC): 6 Does the Patient Walk: Yes Gait (FIM): 6 Gait distance (FIM): 3=150 ft Distance: 400' Walk 50ft with 2 Turns (QC): 6 Walk 150 ft (QC): 6 Gait Level of Assist: 6 Gait Assistive Device: FWW Stairs (FIM): 6 # of Steps: 25 Stairs Level Of Assist: 6 PT Plan Problem List Problem List: Activity Tolerance, Functional Strength, Safety, Balance, Gait, Transfer Treatment/Plan Treatment Plan: Continue Plan of Care Treatment Plan: Education, Functional Activity Bao, Functional Strength, Gait , Safety, Therapeutic Exercise, Transfers Treatment Duration: May 18, 2017 Frequency: 6 times per week Estimated Hrs Per Day: .25 hour per day Patient and/or Family Agrees t: Yes Safety Risks/Education Patient Education: Gait Training, Transfer Techniques, Correct Positioning, Safety Issues Teaching Recipient: Patient Teaching Methods: Demonstration, Discussion Response to Teaching: Reinforcement Needed Time/GCodes Time In: 1345 Time Out: 1400 Total Billed Treatment Time: 15 Total Billed Treatment 1 visit GT 15' CED AKINS PT May 09, 2017 14:06
[2017-05-09 17:35] VITALS: BP 113/62
[2017-05-09] MEDS: LUMIGAN 0.01% OPTH SOLN OS SCH (21:05)
[2017-05-10] MEDS: RT-ALBUTEROL/IPRATROPIUM 3 ML (DUONEB) VIAL INH SCH ×4 (02:32→22:14)
[2017-05-10] MEDS: ANTACID SUSP 30 ML UDC (MYLANTA) PO PRN ×2 (02:43→21:50)
[2017-05-10 06:00] VITALS: BP 120/63
[2017-05-10] MEDS: MEROPENEM 500 MG in NS (IVPB) 100 ML IV SCH ×4 (06:03→23:27)
[2017-05-10] MEDS: LACTOBACILLUS Acidoph/Bulgar (LACTINEX/FLORANEX) TAB PO SCH ×3 (06:04→16:23)
[2017-05-10] MEDS: PANTOPRAZOLE 20 MG TABLET (PROTONIX) PO SCH (06:04)
[2017-05-10] MEDS: methylPREDNISolone 125 MG (Solu-MEDROL) VIAL IVP SCH (06:04)
--- NOTE | 2017-05-10 06:11 | Pulmonary Progress Note ---
Subjective Time Seen by Provider: 06:13 Subjective/Events-last exam S/P thoracentesis. pt states he is feeling improved. Exam Exam Vital Signs Date Time Temp Pulse Resp B/P (MAP) Pulse Ox O2 Delivery O2 Flow Rate FiO2 05/10/17 02:32 97 Nasal Cannula 3.00 05/09/17 20:52 95 Nasal Cannula 3.00 05/09/17 19:50 95 Nasal Cannula 3.00 05/09/17 19:48 Nasal Cannula 3.00 05/09/17 17:35 97.4 88 20 113/62 (79) 96 Nasal Cannula 3.00 05/09/17 16:25 97.6 05/09/17 14:51 97 Nasal Cannula 3.00 05/09/17 10:01 96 Nasal Cannula 3.00 05/09/17 10:01 100 96 05/09/17 08:00 9 Nasal Cannula 3.00 I & O 05/10/17 07:00 Intake Total 2610 ml Balance 2610 ml General Appearance: No Apparent Distress, Anxious HEENT: Pharynx Normal Neck: Full Range of Motion, Normal Inspection, Non Tender, Supple Respiratory: No Accessory Muscle Use, No Respiratory Distress, Decreased Breath Sounds Cardiovascular: Regular Rate, Rhythm, No Edema, No Gallop, No JVD Gastrointestinal: normal bowel sounds, non tender, soft, no organomegaly Extremity: Normal Capillary Refill, Normal Inspection, Normal Range of Motion Neurologic/Psychiatric: Alert, Oriented x3 Skin: Normal Color, Warm/Dry Lymphatic: No Adenopathy Results Lab Laboratory Tests 05/09/17 06:24 Assessment/Plan Assessment/Plan Pneumonia-- in conjunction with chronic ILD 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 neumann cultures have been negative. -Continue Abx merrem -Solumedrol 40mg IV Q6 -repeat CXR - neumann cultures negative Left pleural effusion - exudative (bloody) -? cancer/mesothelioma - doubt empyema -PT has been referred to [facility] as out patient -S/P thoracentesis -Repeat CXR today ILD with pulmonary fibrosis s/p bronchoscopy -decrease Solumedrol to 40mg IV Q 6 Hypercalcemia -PTH, ionized calcium Pending CXR and labs reviewed. 30min spent with family, patient and medical staff discussing patients current condition. I have also d/w Dr. Abel regarding thoracentesis pathology. PHIL KEANE DO May 10, 2017 06:11
[2017-05-10 06:22] LABS: BASOPHILS % (AUTO) 0 % (0-10); EOSINOPHILS % (AUTO) 0 % (0-10); HEMATOCRIT 35 % (40-54); HEMOGLOBIN 11.8 G/DL (13.3-17.7); LYMPHOCYTES # (AUTO) 0.3 X 10^3 (1.0-4.0); LYMPHOCYTES % (AUTO) 1 % (12-44); MEAN CORPUSCULAR HEMOGLOBIN 32 PG (25-34); MEAN CORPUSCULAR HGB CONC 34 G/DL (32-36); MEAN CORPUSCULAR VOLUME 93 FL (80-99); MEAN PLATELET VOLUME 9.4 FL (7.4-10.4); MONOCYTES # (AUTO) 0.9 X 10^3 (0.0-1.0); MONOCYTES % (AUTO) 4 % (0-12); NEUTROPHILS # (AUTO) 24.3 X 10^3 (1.8-7.8); NEUTROPHILS % (AUTO) 95 % (42-75); PLATELET COUNT 653 10^3/uL (130-400); RED BLOOD COUNT 3.73 10^6/uL (4.35-5.85); RED CELL DISTRIBUTION WIDTH 12.3 % (10.0-14.5); WHITE BLOOD COUNT 25.5 10^3/uL (4.3-11.0)
[2017-05-10 06:43] LABS: BUN/CREATININE RATIO 31; CALCIUM 10.7 MG/DL (8.5-10.1); CARBON DIOXIDE 32 MMOL/L (21-32); CHLORIDE 98 MMOL/L (98-107); CREATININE SERUM 1.09 MG/DL (0.60-1.30); GFR ESTIMATED > 60; GLUCOSE 148 MG/DL (70-105); MAGNESIUM 2.2 MG/DL (1.8-2.4); PHOSPHORUS 3.9 MG/DL (2.3-4.7); POTASSIUM 4.7 MMOL/L (3.6-5.0); SODIUM 136 MMOL/L (135-145)
--- NOTE | 2017-05-10 08:07 | Diagnostic Imaging Report ---
INDICATION: Pleural effusion and dyspnea. 0725 hours Comparison is made study of 05/09/2017. FINDINGS: Similar to previous study, there is consolidation in the left lower lobe with moderate airspace disease in lower half of the right lung. No pneumothorax is seen. Overall, there has been no significant change. IMPRESSION: Bilateral airspace disease likely related to pneumonia and associated pleural fluid. No pneumothorax or other adverse change is seen. Dictated by: Dictated on workstation # [id number]
[2017-05-10] MEDS: FLUTICASONE NASAL SPRAY (FLONASE) 16 GM BTL NS SCH (09:02)
[2017-05-10] MEDS: ENOXAPARIN 40 MG/0.4 ML (LOVENOX) SYR SC SCH (09:07)
[2017-05-10] MEDS: HYDROcodone/APAP 5 MG/325 MG (LORTAB) TAB PO PRN ×2 (09:07→21:50)
[2017-05-10] MEDS: amLODIPine 5 MG (NORVASC) TAB PO SCH (09:07)
--- NOTE | 2017-05-10 11:04 | Physical Therapy Daily Note ---
PT Daily Note-Current Subjective Patient agrees to PT. Pain Numeric Pain Scale: 5-Moderate Pain Location: Left, Lower Location Body Site: Chest Pain Description: Pressure Mental Status Patient Orientation: Normal For Age Attachments: Oxygen (3L) Transfers Functional [place] Measure 0=Not Assessed/NA 4=Minimal Assistance 1=Total Assistance 5=Supervision or Setup 2=Maximal Assistance 6=Modified [place] 3=Moderate Assistance 7=Complete IndependenceIRFPAI Quality Coding Scale 6 Independent with activity with or without an assistive device 5 Patient requires set up or clean up by helper. Patient completes activity by themselves 4 Supervision or touching assist (CGA). [place] provide cues , steadying assist 3 The helper provides less than half the effort to complete the activity 2 The helper provides more than half the effort to complete the activity 1 Dependent. The helper does all the effort to complete an activity 7 Patient refused to complete or attempt activity 9 The patient did not perform the activity before the current illness or injury 88 Not attempted due to Medical conditions or safety concerns Transfers (B, C, W/C) (FIM): 6 Scootin Sit to/from Stand: 6 Sit to Stand (QC): 6 Weight Bearing Right Lower Extremity: Right Full Weight Bearing Left Lower Extremity: Left Full Weight Bearing Gait Training Does the Patient Walk?: Yes Gait (FIM): 6 Distance (FIM): 3=150 ft Distance: 450' Walk 50 ft with 2 Turns(QC): 6 Walk 150 ft (QC): 6 Gait Level of Assist: 6 Gait Assistive Device: FWW safe and functional gait sequence Assessment SAO2 on 3L prior to ambulation 95%, patient request to remain on 3L O2 during ambulation and SAO2 decreased to 80% with 45 sec recovery to 90%. PT Combat Engineer Goals [facility] Goals PT [facility] Goals Time Frame: May 18, 2017 Transfers (B,C,W/C) (FIM): 7 Sit to Lying (QC): 6 Lying-Sitting on Side/Bed(QC): 6 Sit to Stand (QC): 6 Rollin Chair/Rzl-fn-Wfbyg Xfer(QC): 6 Does the Patient Walk: Yes Gait (FIM): 6 Gait distance (FIM): 3=150 ft Distance: 400' Walk 50ft with 2 Turns (QC): 6 Walk 150 ft (QC): 6 Gait Level of Assist: 6 Gait Assistive Device: FWW Stairs (FIM): 6 # of Steps: 25 Stairs Level Of Assist: 6 PT Plan Treatment/Plan Treatment Plan: Continue Plan of Care Treatment Plan: Education, Functional Activity Bao, Functional Strength, Gait , Safety, Therapeutic Exercise, Transfers Treatment Duration: May 18, 2017 Frequency: 6 times per week Estimated Hrs Per Day: .25 hour per day Patient and/or Family Agrees t: Yes Time/GCodes Time In: 1030 Time Out: 1045 Total Billed Treatment Time: 15 Total Billed Treatment 1 visit FA 15 min ELIZABET NGUYEN PT May 10, 2017 11:04
--- NOTE | 2017-05-10 11:07 | Progress Note-Hospitalist ---
Subjective HPI/CC On Admission Date Seen by Provider: May 10, 2017 Time Seen by Provider: 10:00 Subjective/Events-last exam Pt doing well overall Less dyspnea noted Thoracentesis improved breathing Effusion was bloody and I spoke to Dr Verdugo and he suspects some sort of neoplastic process perhaps mesothelioma O2 maintained Bowels are moving well Checked meds and labs Objective Exam Vital Signs Vital Signs Date Time Temp Pulse Resp B/P (MAP) Pulse Ox O2 Delivery O2 Flow Rate FiO2 05/07/17 14:36 93 Nasal Cannula 3.00 05/07/17 17:50 99.6 104 18 162/85 (110) Capillary Refill : General Appearance: No Apparent Distress, WD/WN Respiratory: No Accessory Muscle Use, No Respiratory Distress, Crackles, Decreased Breath Sounds, Wheezing Cardiovascular: Regular Rate, Rhythm Neurologic/Psychiatric: Alert, Oriented x3, No Motor/Sensory Deficits, Normal Mood/Affect, auto design checker II-XII Norm as Tested Results/Procedures Lab Laboratory Tests 05/10/17 05:49 Patient resulted labs reviewed. Assessment/Plan Assessment and Plan Assess & Plan/Chief Complaint Assessment: Pneumonia on meropenem Left-sided pleural effusion status post thoracentesis uncomplicated today by Dr. Verdugo but it was bloody so suspicion for neoplastic process Severe hypoxia Severe deconditioning Leukocytosis Plan: Continue IS Monitor labs Monitor pt Maintain meropenem antibiotic and follow-up on effusion results Diagnosis/Problems Diagnosis/Problems (1) Pleural effusion on left Status: Acute (2) COPD (chronic obstructive pulmonary disease) Status: Chronic Qualifiers: COPD type: unspecified COPD Qualified Codes: J44.9 - Chronic obstructive pulmonary disease, unspecified (3) Hypoxia Status: Acute (4) HTN (hypertension) Status: Chronic Qualifiers: Hypertension type: essential hypertension Qualified Codes: I10 - Essential (primary) hypertension Clinical Quality Measures DVT/VTE Risk/Contraindication: Risk Factor Score Per Nursin SHIVANI CARRANZA DO May 10, 2017 11:07
[2017-05-10] MEDS: methylPREDNISolone 40 MG/ML (Solu-MEDROL) VIAL IV SCH ×3 (11:30→23:27)
[2017-05-10 17:15] VITALS: BP 134/71
[2017-05-10] MEDS: BENZONATATE 100 MG (TESSALON) CAPSULE PO PRN (21:50)
[2017-05-10] MEDS: LUMIGAN 0.01% OPTH SOLN OS SCH (21:51)
[2017-05-11] MEDS: RT-ALBUTEROL/IPRATROPIUM 3 ML (DUONEB) VIAL INH SCH ×4 (02:17→21:49)
[2017-05-11 04:31] LABS: BASOPHILS % (AUTO) 0 % (0-10); EOSINOPHILS % (AUTO) 0 % (0-10); HEMATOCRIT 33 % (40-54); HEMOGLOBIN 11.6 G/DL (13.3-17.7); LYMPHOCYTES # (AUTO) 0.3 X 10^3 (1.0-4.0); LYMPHOCYTES % (AUTO) 1 % (12-44); MEAN CORPUSCULAR HEMOGLOBIN 32 PG (25-34); MEAN CORPUSCULAR HGB CONC 35 G/DL (32-36); MEAN CORPUSCULAR VOLUME 92 FL (80-99); MEAN PLATELET VOLUME 9.5 FL (7.4-10.4); MONOCYTES # (AUTO) 0.8 X 10^3 (0.0-1.0); MONOCYTES % (AUTO) 4 % (0-12); NEUTROPHILS # (AUTO) 20.3 X 10^3 (1.8-7.8); NEUTROPHILS % (AUTO) 95 % (42-75); PLATELET COUNT 597 10^3/uL (130-400); RED BLOOD COUNT 3.62 10^6/uL (4.35-5.85); RED CELL DISTRIBUTION WIDTH 12.2 % (10.0-14.5); WHITE BLOOD COUNT 21.4 10^3/uL (4.3-11.0)
[2017-05-11 04:53] LABS: BUN/CREATININE RATIO 37; CALCIUM 10.1 MG/DL (8.5-10.1); CARBON DIOXIDE 29 MMOL/L (21-32); CHLORIDE 101 MMOL/L (98-107); CREATININE SERUM 0.95 MG/DL (0.60-1.30); GFR ESTIMATED > 60; GLUCOSE 130 MG/DL (70-105); MAGNESIUM 2.3 MG/DL (1.8-2.4); POTASSIUM 4.7 MMOL/L (3.6-5.0); SODIUM 138 MMOL/L (135-145)
[2017-05-11] MEDS: methylPREDNISolone 40 MG/ML (Solu-MEDROL) VIAL IV SCH ×4 (05:34→23:58)
[2017-05-11] MEDS: MEROPENEM 500 MG in NS (IVPB) 100 ML IV SCH ×2 (05:34→23:58)
[2017-05-11] MEDS: LACTOBACILLUS Acidoph/Bulgar (LACTINEX/FLORANEX) TAB PO SCH ×3 (05:34→16:50)
[2017-05-11] MEDS: PANTOPRAZOLE 20 MG TABLET (PROTONIX) PO SCH (05:34)
[2017-05-11 06:00] VITALS: BP 131/69
--- NOTE | 2017-05-11 07:09 | Pulmonary Progress Note ---
Subjective Time Seen by Provider: 07:08 Subjective/Events-last exam Pt states everyday since thoracentesis he has been feeling a little better. Pt has been afebrile Exam Exam Vital Signs Date Time Temp Pulse Resp B/P (MAP) Pulse Ox O2 Delivery O2 Flow Rate FiO2 05/11/17 06:00 98.0 82 18 131/69 (89) 95 Nasal Cannula 2.00 05/11/17 02:18 96 Nasal Cannula 3.00 05/11/17 00:00 97.1 05/10/17 22:15 95 Nasal Cannula 3.00 05/10/17 20:00 Nasal Cannula 3.00 05/10/17 17:15 97.8 86 18 134/71 (92) 98 Nasal Cannula 2.00 05/10/17 13:35 96 Nasal Cannula 3.00 05/10/17 08:28 96 Nasal Cannula 3.00 05/10/17 08:00 95 Nasal Cannula 3.00 I & O 05/11/17 07:00 Intake Total 1822 ml Output Total 300 ml Balance 1522 ml General Appearance: No Apparent Distress, Anxious HEENT: Pharynx Normal Neck: Full Range of Motion, Normal Inspection, Non Tender, Supple Respiratory: No Accessory Muscle Use, No Respiratory Distress, Decreased Breath Sounds Cardiovascular: Regular Rate, Rhythm, No Edema, No Gallop, No JVD Gastrointestinal: normal bowel sounds, non tender, soft, no organomegaly Extremity: Normal Capillary Refill, Normal Inspection, Normal Range of Motion Neurologic/Psychiatric: Alert, Oriented x3 Skin: Normal Color, Warm/Dry Lymphatic: No Adenopathy Results Lab Laboratory Tests 05/10/17 05:49 05/11/17 03:35 05/11/17 03:55 Assessment/Plan Assessment/Plan Pneumonia-- in conjunction with chronic ILD 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 neumann cultures have been negative. -Continue Abx merrem-- continue through and reevaluate on Sunday -Solumedrol 40mg IV Q6 -repeat CXR - neumann cultures negative Left pleural effusion - exudative (bloody) -? cancer/mesothelioma - doubt empyema -PT has been referred to [facility] as out patient -S/P thoracentesis -Repeat CXR today ILD with pulmonary fibrosis s/p bronchoscopy -decrease Solumedrol to 40mg IV Q 6 Hypercalcemia -PTH, ionized calcium Pending CXR and labs reviewed. 233 PHIL KEANE DO May 11, 2017 07:09
[2017-05-11 08:00] VITALS: BP 139/84
[2017-05-11] MEDS: BENZONATATE 100 MG (TESSALON) CAPSULE PO PRN ×3 (08:45→21:57)
[2017-05-11] MEDS: ENOXAPARIN 40 MG/0.4 ML (LOVENOX) SYR SC SCH (08:45)
[2017-05-11] MEDS: FLUTICASONE NASAL SPRAY (FLONASE) 16 GM BTL NS SCH (08:46)
[2017-05-11] MEDS: amLODIPine 5 MG (NORVASC) TAB PO SCH (08:46)
[2017-05-11] MEDS: IBUPROFEN 600 MG (MOTRIN) TAB PO PRN ×2 (08:46→16:51)
--- NOTE | 2017-05-11 09:52 | Physical Therapy Daily Note ---
PT Daily Note-Current Subjective Patient agrees to PT. He reports he is feeling better. Pain Numeric Pain Scale: 0-No Pain Location: No Pain Reported Mental Status Patient Orientation: Normal For Age Attachments: Oxygen Transfers Functional [place] Measure 0=Not Assessed/NA 4=Minimal Assistance 1=Total Assistance 5=Supervision or Setup 2=Maximal Assistance 6=Modified [place] 3=Moderate Assistance 7=Complete IndependenceIRFPAI Quality Coding Scale 6 Independent with activity with or without an assistive device 5 Patient requires set up or clean up by helper. Patient completes activity by themselves 4 Supervision or touching assist (CGA). [place] provide cues , steadying assist 3 The helper provides less than half the effort to complete the activity 2 The helper provides more than half the effort to complete the activity 1 Dependent. The helper does all the effort to complete an activity 7 Patient refused to complete or attempt activity 9 The patient did not perform the activity before the current illness or injury 88 Not attempted due to Medical conditions or safety concerns Transfers (B, C, W/C) (FIM): 7 Scootin Roll Left to Right (QC): 6 Supine to/from Sit: 7 Sit to/from Stand: 7 Sit to Lying (QC): 6 Sit to Stand (QC): 6 Chair/Jmu-sv-Juflu Xfer(QC): 6 Bed to/from Chair: 7 Weight Bearing Right Lower Extremity: Right Full Weight Bearing Left Lower Extremity: Left Full Weight Bearing Gait Training Does the Patient Walk?: Yes Gait (FIM): 6 Distance (FIM): 3=150 ft Distance: 450' Walk 50 ft with 2 Turns(QC): 6 Walk 150 ft (QC): 6 Gait Level of Assist: 6 Gait Assistive Device: FWW SAO2 maintained >90% on 4L O2 during treatment Assessment Current Status: Excellent Progress PT Automotive Airconditioning Mechanic Goals Nursing Home Goals PT Nursing Home Goals Time Frame: May 18, 2017 Transfers (B,C,W/C) (FIM): 7 Sit to Lying (QC): 6 Lying-Sitting on Side/Bed(QC): 6 Sit to Stand (QC): 6 Rollin Chair/Dzv-qh-Ctnkh Xfer(QC): 6 Does the Patient Walk: Yes Gait (FIM): 6 Gait distance (FIM): 3=150 ft Distance: 400' Walk 50ft with 2 Turns (QC): 6 Walk 150 ft (QC): 6 Gait Level of Assist: 6 Gait Assistive Device: FWW Stairs (FIM): 6 # of Steps: 25 Stairs Level Of Assist: 6 PT Plan Treatment/Plan Treatment Plan: Continue Plan of Care Treatment Plan: Education, Functional Activity Bao, Functional Strength, Gait , Safety, Therapeutic Exercise, Transfers Treatment Duration: May 18, 2017 Frequency: 6 times per week Estimated Hrs Per Day: .25 hour per day Patient and/or Family Agrees t: Yes Time/GCodes Time In: 930 Time Out: 945 Total Billed Treatment Time: 15 Total Billed Treatment 1 visit FA 15 min ELIZABET NGUYEN PT May 11, 2017 09:51
--- NOTE | 2017-05-11 10:50 | Progress Note-Hospitalist ---
Subjective HPI/CC On Admission Date Seen by Provider: May 11, 2017 Time Seen by Provider: 10:45 Subjective/Events-last exam Patient doing much better Has been up and walking the halls with oxygen No shortness of breath Objective Exam Vital Signs Vital Signs Date Time Temp Pulse Resp B/P (MAP) Pulse Ox O2 Delivery O2 Flow Rate FiO2 05/07/17 14:36 93 Nasal Cannula 3.00 05/07/17 17:50 99.6 104 18 162/85 (110) Capillary Refill : General Appearance: No Apparent Distress, WD/WN HEENT: PERRL/EOMI Respiratory: No Accessory Muscle Use, No Respiratory Distress, Decreased Breath Sounds (Bases left greater than right) Neurologic/Psychiatric: Alert, Oriented x3, No Motor/Sensory Deficits, Normal Mood/Affect, supervisor tunnel heading II-XII Norm as Tested Skin: Normal Color, Warm/Dry Results/Procedures Lab Laboratory Tests 05/11/17 03:35 05/11/17 03:55 Patient resulted labs reviewed. Assessment/Plan Assessment and Plan Assess & Plan/Chief Complaint Assessment: Pneumonia on meropenem Left-sided pleural effusion status post thoracentesis uncomplicated today by Dr. Verdugo but it was bloody so suspicion for neoplastic process Severe hypoxia Severe deconditioning Leukocytosis Plan: Continue IS Monitor labs Monitor pt Maintain meropenem antibiotic and follow-up on effusion results Diagnosis/Problems Diagnosis/Problems (1) Pleural effusion on left Status: Acute (2) COPD (chronic obstructive pulmonary disease) Status: Chronic Qualifiers: COPD type: unspecified COPD Qualified Codes: J44.9 - Chronic obstructive pulmonary disease, unspecified (3) Hypoxia Status: Acute (4) HTN (hypertension) Status: Chronic Qualifiers: Hypertension type: essential hypertension Qualified Codes: I10 - Essential (primary) hypertension Clinical Quality Measures DVT/VTE Risk/Contraindication: Risk Factor Score Per Nursin SHIVANI CARRANZA DO May 11, 2017 10:50
[2017-05-11 17:25] VITALS: BP 133/74
[2017-05-11] MEDS: LUMIGAN 0.01% OPTH SOLN OS SCH (21:57)
[2017-05-11] MEDS: HYDROcodone/APAP 5 MG/325 MG (LORTAB) TAB PO PRN (21:57)
[2017-05-12] MEDS: RT-ALBUTEROL/IPRATROPIUM 3 ML (DUONEB) VIAL INH SCH ×4 (03:26→19:45)
[2017-05-12] MEDS: PANTOPRAZOLE 20 MG TABLET (PROTONIX) PO SCH (05:34)
[2017-05-12] MEDS: LACTOBACILLUS Acidoph/Bulgar (LACTINEX/FLORANEX) TAB PO SCH ×3 (05:34→16:18)
[2017-05-12] MEDS: methylPREDNISolone 40 MG/ML (Solu-MEDROL) VIAL IV SCH ×3 (05:34→18:46)
[2017-05-12] MEDS: MEROPENEM 500 MG in NS (IVPB) 100 ML IV SCH ×3 (05:34→18:46)
[2017-05-12 06:00] VITALS: BP 143/76
[2017-05-12 06:00] LABS: BASOPHILS % (AUTO) 0 % (0-10); EOSINOPHILS % (AUTO) 0 % (0-10); HEMATOCRIT 35 % (40-54); HEMOGLOBIN 11.6 G/DL (13.3-17.7); LYMPHOCYTES # (AUTO) 0.2 X 10^3 (1.0-4.0); LYMPHOCYTES % (AUTO) 1 % (12-44); MEAN CORPUSCULAR HEMOGLOBIN 31 PG (25-34); MEAN CORPUSCULAR HGB CONC 33 G/DL (32-36); MEAN CORPUSCULAR VOLUME 94 FL (80-99); MEAN PLATELET VOLUME 9.3 FL (7.4-10.4); MONOCYTES # (AUTO) 0.9 X 10^3 (0.0-1.0); MONOCYTES % (AUTO) 5 % (0-12); NEUTROPHILS # (AUTO) 17.4 X 10^3 (1.8-7.8); NEUTROPHILS % (AUTO) 94 % (42-75); PLATELET COUNT 629 10^3/uL (130-400); RED CELL DISTRIBUTION WIDTH 12.4 % (10.0-14.5); WHITE BLOOD COUNT 18.5 10^3/uL (4.3-11.0)
[2017-05-12 06:24] LABS: BUN/CREATININE RATIO 42; CARBON DIOXIDE 31 MMOL/L (21-32); CHLORIDE 103 MMOL/L (98-107); CREATININE SERUM 0.86 MG/DL (0.60-1.30); GFR ESTIMATED > 60; GLUCOSE 124 MG/DL (70-105); MAGNESIUM 2.3 MG/DL (1.8-2.4); SODIUM 138 MMOL/L (135-145)
[2017-05-12] MEDS: FLUTICASONE NASAL SPRAY (FLONASE) 16 GM BTL NS SCH (08:51)
[2017-05-12] MEDS: BENZONATATE 100 MG (TESSALON) CAPSULE PO PRN ×3 (08:52→21:33)
[2017-05-12] MEDS: IBUPROFEN 600 MG (MOTRIN) TAB PO PRN ×2 (08:52→16:18)
[2017-05-12] MEDS: amLODIPine 5 MG (NORVASC) TAB PO SCH (08:52)
[2017-05-12] MEDS: ENOXAPARIN 40 MG/0.4 ML (LOVENOX) SYR SC SCH (08:52)
[2017-05-12 09:34] VITALS: BP 143/76
--- NOTE | 2017-05-12 11:02 | Physical Therapy Daily Note ---
PT Daily Note-Current Subjective States that he wants to walk. States that he has to get stronger. Pain Numeric Pain Scale: 0-No Pain Transfers Functional [place] Measure 0=Not Assessed/NA 4=Minimal Assistance 1=Total Assistance 5=Supervision or Setup 2=Maximal Assistance 6=Modified [place] 3=Moderate Assistance 7=Complete IndependenceIRFPAI Quality Coding Scale 6 Independent with activity with or without an assistive device 5 Patient requires set up or clean up by helper. Patient completes activity by themselves 4 Supervision or touching assist (CGA). [place] provide cues , steadying assist 3 The helper provides less than half the effort to complete the activity 2 The helper provides more than half the effort to complete the activity 1 Dependent. The helper does all the effort to complete an activity 7 Patient refused to complete or attempt activity 9 The patient did not perform the activity before the current illness or injury 88 Not attempted due to Medical conditions or safety concerns Sit to/from Stand: 7 Weight Bearing Right Lower Extremity: Right Full Weight Bearing Left Lower Extremity: Left Full Weight Bearing Gait Training Gait (FIM): 5 Distance (FIM): 3=150 ft Distance: 900' Gait Level of Assist: 5 Gait Persons Needed: 1 Gait Assistive Device: FWW Assessment Current Status: Excellent Progress Patient dropped to 90% SPO2 after gait and then it returned to 95% after recovery period. PT [facility] [employer] Goals Correction Goals PT [employer] Goals Time Frame: May 18, 2017 Transfers (B,C,W/C) (FIM): 7 Sit to Lying (QC): 6 Lying-Sitting on Side/Bed(QC): 6 Sit to Stand (QC): 6 Rollin Chair/Bgi-od-Qxfjs Xfer(QC): 6 Does the Patient Walk: Yes Gait (FIM): 6 Gait distance (FIM): 3=150 ft Distance: 400' Walk 50ft with 2 Turns (QC): 6 Walk 150 ft (QC): 6 Gait Level of Assist: 6 Gait Assistive Device: FWW Stairs (FIM): 6 # of Steps: 25 Stairs Level Of Assist: 6 PT Plan Treatment/Plan Treatment Plan: Continue Plan of Care Treatment Plan: Education, Functional Activity Bao, Functional Strength, Gait , Safety, Therapeutic Exercise, Transfers Treatment Duration: May 18, 2017 Frequency: 6 times per week Estimated Hrs Per Day: .25 hour per day Patient and/or Family Agrees t: Yes Time/GCodes Time In: 1045 Time Out: 1100 Total Billed Treatment Time: 15 Total Billed Treatment 1, GT G Codes Necessary: No LIZZETTE BARNEY PT May 12, 2017 11:02
[2017-05-12 17:50] VITALS: BP 146/77
[2017-05-12] MEDS: LUMIGAN 0.01% OPTH SOLN OS SCH (21:29)
[2017-05-13] MEDS: MEROPENEM 500 MG in NS (IVPB) 100 ML IV SCH ×4 (00:05→18:26)
[2017-05-13] MEDS: methylPREDNISolone 40 MG/ML (Solu-MEDROL) VIAL IV SCH ×4 (00:05→18:26)
[2017-05-13] MEDS: IBUPROFEN 600 MG (MOTRIN) TAB PO PRN ×3 (00:57→21:22)
[2017-05-13] MEDS: RT-ALBUTEROL/IPRATROPIUM 3 ML (DUONEB) VIAL INH SCH ×4 (03:01→21:13)
[2017-05-13] MEDS: PANTOPRAZOLE 20 MG TABLET (PROTONIX) PO SCH (05:40)
[2017-05-13] MEDS: LACTOBACILLUS Acidoph/Bulgar (LACTINEX/FLORANEX) TAB PO SCH ×3 (05:43→18:26)
[2017-05-13 05:52] LABS: BASOPHILS # (AUTO) 0.1 10^3/uL (0.0-0.1); BASOPHILS % (AUTO) 0 % (0-10); EOSINOPHILS % (AUTO) 0 % (0-10); HEMATOCRIT 33 % (40-54); HEMOGLOBIN 11.3 G/DL (13.3-17.7); LYMPHOCYTES # (AUTO) 0.5 X 10^3 (1.0-4.0); LYMPHOCYTES % (AUTO) 3 % (12-44); MEAN CORPUSCULAR HEMOGLOBIN 32 PG (25-34); MEAN CORPUSCULAR HGB CONC 34 G/DL (32-36); MEAN CORPUSCULAR VOLUME 93 FL (80-99); MEAN PLATELET VOLUME 9.3 FL (7.4-10.4); MONOCYTES # (AUTO) 0.9 X 10^3 (0.0-1.0); MONOCYTES % (AUTO) 4 % (0-12); NEUTROPHILS # (AUTO) 19.2 X 10^3 (1.8-7.8); NEUTROPHILS % (AUTO) 93 % (42-75); PLATELET COUNT 648 10^3/uL (130-400); RED BLOOD COUNT 3.58 10^6/uL (4.35-5.85); RED CELL DISTRIBUTION WIDTH 12.3 % (10.0-14.5); WHITE BLOOD COUNT 20.6 10^3/uL (4.3-11.0)
[2017-05-13 06:01] VITALS: BP 140/82
[2017-05-13 06:19] LABS: BUN/CREATININE RATIO 51; CALCIUM 9.9 MG/DL (8.5-10.1); CARBON DIOXIDE 29 MMOL/L (21-32); CHLORIDE 102 MMOL/L (98-107); CREATININE SERUM 0.82 MG/DL (0.60-1.30); GFR ESTIMATED > 60; GLUCOSE 125 MG/DL (70-105); MAGNESIUM 2.1 MG/DL (1.8-2.4); SODIUM 136 MMOL/L (135-145)
[2017-05-13] MEDS: amLODIPine 5 MG (NORVASC) TAB PO SCH (09:13)
[2017-05-13] MEDS: BENZONATATE 100 MG (TESSALON) CAPSULE PO PRN ×2 (09:13→21:22)
[2017-05-13] MEDS: ENOXAPARIN 40 MG/0.4 ML (LOVENOX) SYR SC SCH (09:13)
[2017-05-13] MEDS: FLUTICASONE NASAL SPRAY (FLONASE) 16 GM BTL NS SCH (09:14)
[2017-05-13 17:30] VITALS: BP 148/70
[2017-05-13] MEDS: LUMIGAN 0.01% OPTH SOLN OS SCH (21:22)
[2017-05-14] MEDS: methylPREDNISolone 40 MG/ML (Solu-MEDROL) VIAL IV SCH ×3 (00:10→11:24)
[2017-05-14] MEDS: MEROPENEM 500 MG in NS (IVPB) 100 ML IV SCH ×3 (00:10→11:29)
[2017-05-14] MEDS: RT-ALBUTEROL/IPRATROPIUM 3 ML (DUONEB) VIAL INH SCH ×3 (02:58→16:11)
[2017-05-14] MEDS: PANTOPRAZOLE 20 MG TABLET (PROTONIX) PO SCH (05:41)
[2017-05-14] MEDS: LACTOBACILLUS Acidoph/Bulgar (LACTINEX/FLORANEX) TAB PO SCH ×3 (05:41→15:42)
[2017-05-14 06:00] VITALS: BP 160/86
[2017-05-14 06:36] LABS: BASOPHILS % (AUTO) 0 % (0-10); EOSINOPHILS % (AUTO) 0 % (0-10); HEMATOCRIT 32 % (40-54); HEMOGLOBIN 10.9 G/DL (13.3-17.7); LYMPHOCYTES # (AUTO) 0.3 X 10^3 (1.0-4.0); LYMPHOCYTES % (AUTO) 2 % (12-44); MEAN CORPUSCULAR HEMOGLOBIN 31 PG (25-34); MEAN CORPUSCULAR HGB CONC 34 G/DL (32-36); MEAN CORPUSCULAR VOLUME 93 FL (80-99); MEAN PLATELET VOLUME 9.4 FL (7.4-10.4); MONOCYTES % (AUTO) 5 % (0-12); NEUTROPHILS # (AUTO) 21.2 X 10^3 (1.8-7.8); NEUTROPHILS % (AUTO) 94 % (42-75); PLATELET COUNT 637 10^3/uL (130-400); RED CELL DISTRIBUTION WIDTH 12.3 % (10.0-14.5); WHITE BLOOD COUNT 22.6 10^3/uL (4.3-11.0)
[2017-05-14 07:06] LABS: BUN/CREATININE RATIO 51; CALCIUM 9.2 MG/DL (8.5-10.1); CARBON DIOXIDE 29 MMOL/L (21-32); CHLORIDE 103 MMOL/L (98-107); CREATININE SERUM 0.77 MG/DL (0.60-1.30); GFR ESTIMATED > 60; GLUCOSE 115 MG/DL (70-105); MAGNESIUM 2.4 MG/DL (1.8-2.4); PHOSPHORUS 3.3 MG/DL (2.3-4.7); POTASSIUM 4.9 MMOL/L (3.6-5.0); SODIUM 136 MMOL/L (135-145)
--- NOTE | 2017-05-14 07:21 | Pulmonary Progress Note ---
Exam Exam Vital Signs Date Time Temp Pulse Resp B/P (MAP) Pulse Ox O2 Delivery O2 Flow Rate FiO2 05/14/17 06:00 97.0 83 18 160/86 (110) 96 Nasal Cannula 3.00 05/14/17 02:59 95 Nasal Cannula 3.00 05/13/17 21:13 97 Nasal Cannula 3.00 05/13/17 19:52 Nasal Cannula 3.00 05/13/17 17:30 97.2 78 18 148/70 (96) 97 Nasal Cannula 3.00 05/13/17 13:24 97 Nasal Cannula 3.00 05/13/17 09:48 97 Nasal Cannula 3.00 05/13/17 08:00 97 Nasal Cannula 3.00 I & O 05/14/17 07:00 Intake Total 2250 ml Output Total 700 ml Balance 1550 ml General Appearance: No Apparent Distress, WD/WN HEENT: PERRL/EOMI Neck: Full Range of Motion, Normal Inspection, Non Tender, Supple Respiratory: No Accessory Muscle Use, No Respiratory Distress, Decreased Breath Sounds (Bases left greater than right) Cardiovascular: Regular Rate, Rhythm, No Edema, No Gallop, No JVD Gastrointestinal: normal bowel sounds, non tender, soft, no organomegaly Extremity: Normal Capillary Refill, Normal Inspection, Normal Range of Motion Neurologic/Psychiatric: Alert, Oriented x3, No Motor/Sensory Deficits, Normal Mood/Affect, staffing specialist II-XII Norm as Tested Skin: Normal Color, Warm/Dry Lymphatic: No Adenopathy Results Lab Laboratory Tests 05/13/17 05:25 05/14/17 06:11 Assessment/Plan Assessment/Plan Pneumonia-- in conjunction with chronic ILD 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 neumann cultures have been negative. - merrem-- -Solumedrol 40mg IV Q6 -repeat CXR this AM - neumann cultures negative Left pleural effusion - exudative (bloody) -? cancer/mesothelioma - doubt empyema -PT has been referred to [facility] as out patient -S/P thoracentesis -Repeat CXR today ILD with pulmonary fibrosis s/p bronchoscopy -decrease Solumedrol to 40mg IV Q 6 Hypercalcemia -PTH, ionized calcium Pending CXR and labs reviewed. 232 PHIL KEANE DO May 14, 2017 07:21
[2017-05-14] MEDS: FLUTICASONE NASAL SPRAY (FLONASE) 16 GM BTL NS SCH (08:26)
[2017-05-14] MEDS: amLODIPine 5 MG (NORVASC) TAB PO SCH (08:27)
[2017-05-14] MEDS: ENOXAPARIN 40 MG/0.4 ML (LOVENOX) SYR SC SCH (08:27)
--- NOTE | 2017-05-14 09:07 | Diagnostic Imaging Report ---
INDICATION: Shortness of breath. TECHNIQUE: Single view chest 8:12 AM. CORRELATION STUDY: 05/10/2017 FINDINGS: Heart size is largely obscured but appears to be enlarged. Vasculature is slightly prominent. Bilateral pleural effusions, moderately large on the left and moderate on the right persists appearing generally stable which is perhaps minimally increased on the right. Associated consolidation with atelectasis or infiltrate at both lung bases persisting. IMPRESSION: 1. Prominent bilateral pleural effusions left greater than right stable to perhaps slightly increased on the right. Associated consolidation with airspace disease about the lung bases persisting. Dictated by: Dictated on workstation # [id number]
[2017-05-14] MEDS ORDERED: PRED10TA22 PO ×2 (10:29)
[2017-05-14] MEDS ORDERED: ACID1TAB PO ×2 (10:29)
--- NOTE | 2017-05-14 10:33 | Discharge Inst-Simple/Standard ---
Discharge Inst-Standard Discharge Medications New, Converted or Re-Newed RX: Call to Patients Pharmacy Patient Instructions/Follow Up Plan of Care/Instructions/FU: Please continue to take your medications as written. If your symptoms return or worsen please return for evaluation. Activity as Tolerated: Yes Discharge Diet: Low Sodium Diet Return to The Hospital For: SOB, Chest pain, high fever, feeling worse. LORI GANDHI MD May 14, 2017 10:32
--- NOTE | 2017-05-14 11:03 | Physical Therapy Daily Note ---
PT Daily Note-Current Subjective Patient agrees to PT. Pain Numeric Pain Scale: 0-No Pain Location: No Pain Reported Mental Status Patient Orientation: Normal For Age Attachments: Oxygen (3L) Transfers Functional [place] Measure 0=Not Assessed/NA 4=Minimal Assistance 1=Total Assistance 5=Supervision or Setup 2=Maximal Assistance 6=Modified [place] 3=Moderate Assistance 7=Complete IndependenceIRFPAI Quality Coding Scale 6 Independent with activity with or without an assistive device 5 Patient requires set up or clean up by helper. Patient completes activity by themselves 4 Supervision or touching assist (CGA). [place] provide cues , steadying assist 3 The helper provides less than half the effort to complete the activity 2 The helper provides more than half the effort to complete the activity 1 Dependent. The helper does all the effort to complete an activity 7 Patient refused to complete or attempt activity 9 The patient did not perform the activity before the current illness or injury 88 Not attempted due to Medical conditions or safety concerns Transfers (B, C, W/C) (FIM): 7 Scootin Roll Left to Right (QC): 6 Supine to/from Sit: 7 Sit to/from Stand: 7 Sit to Lying (QC): 6 Sit to Stand (QC): 6 Chair/Ryt-yv-Ozskr Xfer(QC): 6 Bed to/from Chair: 7 Weight Bearing Right Lower Extremity: Right Full Weight Bearing Left Lower Extremity: Left Full Weight Bearing Gait Training Does the Patient Walk?: Yes Gait (FIM): 6 Distance (FIM): 3=150 ft Distance: 250' x 2 Walk 50 ft with 2 Turns(QC): 6 Walk 150 ft (QC): 6 Gait Level of Assist: 6 Gait Assistive Device: FWW safe and functional with FWW and is independent with short distances Stair Training Stair Training: Handrails/: 1 handrail Stairs (FIM): 7 #of Steps: 30 Stairs: Pattern: Reciprocal Level of Assist: 7 Assessment Patient has improved with pulmonary functional with functional mobility and strengthening, however, does continue to require O2 NC continuous to preserve pulmonary function. Patient SAO2 >90% with all activity. Patient has attained all functional goals and will dismiss to home on this date. PT Dietician Goals Dietician Goals PT Dietician Goals Time Frame: May 18, 2017 Transfers (B,C,W/C) (FIM): 7 (met 05/14/17) Sit to Lying (QC): 6 (met 05/14/17) Lying-Sitting on Side/Bed(QC): 6 (met 05/14/17) Sit to Stand (QC): 6 (met 05/14/17) Rollin (met 05/14/17) Chair/Lsc-fu-Vqccl Xfer(QC): 6 (met 05/14/17) Does the Patient Walk: Yes Gait (FIM): 6 (met 05/14/17) Gait distance (FIM): 3=150 ft Distance: 400' Walk 50ft with 2 Turns (QC): 6 (ca 05/14/17) Walk 150 ft (QC): 6 (met 05/14/17) Gait Level of Assist: 6 (met 05/14/17) Gait Assistive Device: FWW Stairs (FIM): 6 (met 05/14/17) # of Steps: 25 (met 05/14/17) Stairs Level Of Assist: 6 (met 05/14/17) PT Plan Treatment/Plan Treatment Plan: Discontinue PT, goals met Treatment Plan: Education, Functional Activity Bao, Functional Strength, Gait , Safety, Therapeutic Exercise, Transfers Treatment Duration: May 18, 2017 Frequency: 6 times per week Estimated Hrs Per Day: .25 hour per day Patient and/or Family Agrees t: Yes Time/GCodes Time In: 1035 Time Out: 1050 Total Billed Treatment Time: 15 Total Billed Treatment 1 visit FA 15 min ELIZABET NGUYEN PT May 14, 2017 11:03
--- NOTE | 2017-05-14 11:05 | Therapy Team Discharge Summary ---
Therapy Discharge Summary Discharge Recommendations Date of Discharge Physical Therapy Patient has improved with pulmonary functional with functional mobility and strengthening, however, does continue to require O2 NC continuous to preserve pulmonary function. Patient SAO2 >90% with all activity. Patient has attained all functional goals and will dismiss to home on this date. PT Usp Goals Iron Pourer Goals PT [facility]sp Goals Time Frame: May 18, 2017 Transfers (B,C,W/C) (FIM): 7 (met 05/14/17) Sit to Lying (QC): 6 (met 05/14/17) Lying-Sitting on Side/Bed(QC): 6 (met 05/14/17) Sit to Stand (QC): 6 (met 05/14/17) Rollin (met 05/14/17) Chair/Ddk-jl-Djsun Xfer(QC): 6 (met 05/14/17) Does the Patient Walk: Yes Gait (FIM): 6 (met 05/14/17) Gait distance (FIM): 3=150 ft Distance: 400' Walk 50ft with 2 Turns (QC): 6 (me 05/14/17) Walk 150 ft (QC): 6 (met 05/14/17) Gait Level of Assist: 6 (met 05/14/17) Gait Assistive Device: FWW Stairs (FIM): 6 (met 05/14/17) # of Steps: 25 (met 05/14/17) Stairs Level Of Assist: 6 (met 05/14/17) OT Iron Pourer Goals Usp Goals 1=Demonstrate adherence to instructed precautions during ADL tasks. 2=Patient will verbalize/demonstrate understanding of assistive devices/ modifications for ADL. 3=Patient will improve strength/tolerance for activity to enable patient to perform ADL's. ELIZABET NGUYEN PT May 14, 2017 11:05
--- NOTE | 2017-05-14 16:12 | Discharge Summary-Hospitalist ---
Diagnosis/Chief Complaint Date of Admission May 07, 2017 at 13:40 Date of Discharge Discharge Date: May 14, 2017 Discharge Diagnosis (1) Pleural effusion on left Status: Acute (2) COPD (chronic obstructive pulmonary disease) Status: Chronic (3) Hypoxia Status: Acute (4) HTN (hypertension) Status: Chronic Discharge Summary Discharge Physical Exam Allergies: Coded Allergies: No Known Drug Allergies (Unverified , 04/30/17) Vitals & I&Os Vital Signs Date Time Temp Pulse Resp B/P (MAP) Pulse Ox O2 Delivery O2 Flow Rate FiO2 05/14/17 09:09 96 Nasal Cannula 3.00 05/14/17 06:00 97.0 83 18 160/86 (110) 05/12/17 09:34 32 General Appearance: Alert, Oriented X3 Respiratory: Clear to Auscultation Cardiovascular: Regular Rate, No Murmurs Abdominal: Normal Bowel Sounds, Soft Neuro: Normal Gait, Normal Speech Psych/Mental Status: Mental Status NL Hospital Course Pt was admitted to swing bed for continued IV abx and therapy. He completed his antibiotic course and was feeling well. He had a thoracentesis done while admitted on swing bed and cultures were negative. He was feeling well at discharge but was apprehensive about going home. I discussed with both him and his daughter to call for any concerns they had when he returned home but that he was stable for DC given he was on his home oxygen and had completed antibiotics. He did have a leukocytosis but that was believed to be due to steroids. He is to continue on a slow steroid taper and he has an appointment with Dr Verdugo tomorrow. He and his daughter were comfortable with that plan and he was given the 4th floor number in order to contact me if any questions came up tonight when he returned home. Labs (last 24 hrs) Laboratory Tests 05/14/17 06:11: White Blood Count 22.6H, Red Blood Count 3.50L, Hemoglobin 10.9L, Hematocrit 32L , Mean Corpuscular Volume 93, Mean Corpuscular Hemoglobin 31, Mean Corpuscular Hemoglobin Concent 34, Red Cell Distribution Width 12.3, Platelet Count 637H, Mean Platelet Volume 9.4, Neutrophils (%) (Auto) 94H, Lymphocytes (%) (Auto) 2L , Monocytes (%) (Auto) 5, Eosinophils (%) (Auto) 0, Basophils (%) (Auto) 0, Neutrophils # (Auto) 21.2H, Lymphocytes # (Auto) 0.3L, Monocytes # (Auto) 1.0, Eosinophils # (Auto) 0.0, Basophils # (Auto) 0.0, Sodium Level 136, Potassium Level 4.9, Chloride Level 103, Carbon Dioxide Level 29, Anion Gap 4L, Blood Urea Nitrogen 39H, Creatinine 0.77, Estimat Glomerular Filtration Rate > 60, BUN /Creatinine Ratio 51, Glucose Level 115H, Calcium Level 9.2, Phosphorus Level 3.3, Magnesium Level 2.4 Microbiology 05/09/17 Gram Stain - Final, Resulted 05/09/17 Anaerobic Culture - Final, Resulted No growth 05/09/17 Surgical Culture - Final, Resulted No growth 05/09/17 Fungal Culture - Preliminary, Resulted No growth Patient resulted labs reviewed. Discussion & Recommendations Discharge Planning: >30 minutes discharge planning Discharge Home Medications: Active Scripts Active Prednisone 10 Mg Tab.ds.pk 10 Mg PO DAILY Take 6 tabs(60mg)daily,decrease by 1 tab(10mg)every other day. Floranex Tablet (L. Acidophilus/Bulgaricus) 1 Each Tablet 1 Tab.chew PO AC Reported Albuterol Sulfate 2.5 Mg/0.5 Ml Vial.neb 2.5 Mg IH Q4H Amlodipine Besylate 5 Mg Tablet 5 Mg PO DAILY Aleve (Naproxen Sodium) 220 Mg Tablet 220-440 Mg PO Q8H PRN Mucinex D ER Tablet (Guaifenesin/Pseudoephedrne HCl) 1 Each Tab.er.12h 1 Tab PO Q12H PRN Daily Multiple Vitamin (Multivitamin) 1 Each Tablet 1 Tab PO DAILY Prilosec Otc (Omeprazole Magnesium) 20 Mg Tablet.dr 20 Mg PO DAILY Proair Hfa (Albuterol Sulfate) 1 Puff Puff 2 Puff IH Q6H PRN Lumigan (Bimatoprost) 2.5 Ml Drops 1 Drop OS HS Instructions to patient/family Please see electronic discharge instructions given to patient. Clinical Quality Measures DVT/VTE Risk/Contraindication: Risk Factor Score Per Nursin Copy Copies To 1: PHIL VERDUGO DO; UMA CRISOSTOMO DO Problem Qualifiers (1) COPD (chronic obstructive pulmonary disease): COPD type: unspecified COPD Qualified Codes: J44.9 - Chronic obstructive pulmonary disease, unspecified (2) HTN (hypertension): Hypertension type: essential hypertension Qualified Codes: I10 - Essential ( primary) hypertension LORI GANDHI MD May 14, 2017 16:12
[2017-05-14 16:55] VITALS: BP 160/86
== END 2017-05-14 16:55 | disposition home or self-care (01) | DRG 871 ==
LOC: 4TH 13:40
PROVIDERS: ADMIT Internal Medicine; ATTEND Internal Medicine
PROC: 0W9B3ZX Drainage of Left Pleural Cavity, Percutaneous Approach, Diagnostic (ICD-10-PCS; principal; 2017-05-09)
DX: A41.9 Sepsis, unspecified organism (principal); R65.20 Severe sepsis without septic shock; J18.9 Pneumonia, unspecified organism; N17.9 Acute kidney failure, unspecified; J90 Pleural effusion, not elsewhere classified; J84.10 Pulmonary fibrosis, unspecified; R09.02 Hypoxemia; R19.7 Diarrhea, unspecified; J44.9 Chronic obstructive pulmonary disease, unspecified; E86.0 Dehydration; I10 Essential (primary) hypertension; K21.9 Gastro-esophageal reflux disease without esophagitis; E83.52 Hypercalcemia; H40.9 Unspecified glaucoma; J30.2 Other seasonal allergic rhinitis; Z99.81 Dependence on supplemental oxygen; Z87.891 Personal history of nicotine dependence
CPT/HCPCS: 32555; 36415; 71045; 71260; 80048; 80053; 82150; 82330; 82438; 82570; 82945; 83615; 83735; 83880; 83970; 84100; 84157; 84443; 85007; 85025; 85027; 87070; 87075; 87101; 87205; 89051; 94640; 94760

== ENCOUNTER → 2017-05-15 | Outpatient (CLI) | payer MEDICARE ==
[~2017-05-15] MED LIST changes: +ACID1TAB PO; +PRED10TA22 PO
--- NOTE | 2017-05-15 16:42 | Diagnostic Imaging Report ---
PROCEDURE: CT chest without contrast. TECHNIQUE: Multiple contiguous axial images were obtained through the chest without the use of intravenous contrast. INDICATION: Persistent cough. Comparison with 05/08/2017. FINDINGS: Noncontrasted study again shows left pleural effusion. There has been decrease in the pleural fluid volume since previous exam with mild reexpansion of the left lower lobe. There continues to be dense consolidation with air bronchograms in the lower lobe. The upper lung is clear. The right lung shows subpleural interstitial lung disease throughout both the upper and lower lobe. There is consolidated infiltrate with air bronchograms in the right lung base again noted. Bronchi remain widely patent. There is a trace of pericardial effusion. Large fixed hiatal hernia again noted. No mediastinal or hilar adenopathy of pathologic size. No bony lesions. There is noted a gallstone. IMPRESSION: 1. There has been some decrease in left pleural effusion since previous exam with mild reexpansion of the left lower lobe. 2. There continues to be dense consolidated infiltrate in both lower lobes. 3. Chronic interstitial lung disease with a peripheral subpleural distribution, especially in the right lung again noted. Dictated by: Dictated on workstation # [id number]
== END ==
LOC: RAD 14:32
PROVIDERS: ATTEND Nurse Practitioner Family
DX: J90 Pleural effusion, not elsewhere classified (principal); J18.9 Pneumonia, unspecified organism; J84.89 Other specified interstitial pulmonary diseases
CPT/HCPCS: 71250

== ENCOUNTER 2017-06-15 10:32 | Outpatient (RCR) | payer MEDICARE ==
[2017-06-22] MEDS ORDERED: AMOX-358 PO (10:23)
[2017-06-22] MEDS ORDERED: LORA2ORA PO (10:58)
[2017-06-22] MEDS ORDERED: MORP100S3 PO (10:58)
== END 2017-06-29 | disposition home or self-care (01) ==
LOC: ONC 10:32
PROVIDERS: ATTEND Internal Medicine Hematology & Oncology
DX: C34.32 Malignant neoplasm of lower lobe, left bronchus or lung (principal); C77.1 Secondary and unspecified malignant neoplasm of intrathoracic lymph nodes; J84.10 Pulmonary fibrosis, unspecified; I10 Essential (primary) hypertension; K21.9 Gastro-esophageal reflux disease without esophagitis; G47.10 Hypersomnia, unspecified; Z87.891 Personal history of nicotine dependence; Z79.899 Other long term (current) drug therapy
CPT/HCPCS: 99213; 99214

== ENCOUNTER 2017-06-20 16:14 | Inpatient (IN) | payer MEDICARE ==
[~2017-06-20] VITALS: Ht 188 cm; Wt 81.0 kg
--- NOTE | 2017-06-20 17:13 | Diagnostic Imaging Report ---
INDICATION: Shortness of breath. PA and lateral chest. FINDINGS: There is a thoracostomy tube projecting over the left lower chest. There appears to be a loculated effusion in the left lower lateral chest. There are bilateral basilar infiltrates. This is more consolidated on the left than on the right. IMPRESSION: There has been interval placement of a left thoracostomy tube since 05/17/2017. Chest is otherwise unchanged. Dictated by: Dictated on workstation # [id number]
--- NOTE | 2017-06-20 17:44 | ED General ---
General Chief Complaint: General Problems/Pain Stated Complaint: DRAIN TUBE NOT DRAINING Nursing Triage Note: TO ROOM PER W/C ACCORDING TO PATIENT AND FAMILY WAS DX WITH STAGAE 4 LUNG CA ON MAY 25 AND A DRAIN PUT IN THE L SIDE HAD MIMINAL DRAINAGE WHEN HE LEG ON JUNE 01. WAS SEEN BY [facility] TODAY WITH CONCERN THAT HE HAD A 3 LB WT GAIN. Nursing Sepsis Screen: Possible Sepsis Risk Source of Information: Patient, Family Exam Limitations: No Limitations History of Present Illness Date Seen by Provider: June 20, 2017 Time Seen by Provider: 17:44 Initial Comments 76-year-old male patient presents to the emergency department complains of increasing shortness of air and a 3 pound weight gain over the last several days. Low grade temp beginning yesterday.Patient was diagnosed with stage IV lung cancer on May 25 with a left thoracostomy drain. Patient was discharged from on June 01. Patient has had minimal drainage from the thoracostomy drain since being discharged. Timing/Duration: Getting Worse Modifying Factors: worse with Medication (no improvement with nebulizer treatments) Allergies and Home Medications Allergies Coded Allergies: No Known Drug Allergies (Unverified , 04/30/17) Home Medications Albuterol Sulfate 1 Puff Puff, 2 PUFF IH Q6H PRN for WHEEZING, (Reported) Albuterol Sulfate 2.5 Mg/0.5 Ml Vial.neb, 2.5 MG IH Q4H, (Reported) Amlodipine Besylate 5 Mg Tablet, 5 MG PO DAILY, (Reported) Bimatoprost 2.5 Ml Drops, 1 DROP OS HS, (Reported) Fluticasone Propionate 16 Gm [place].susp, 2 SPRAYS NSEACH DAILY, (Reported) Guaifenesin/Pseudoephedrne HCl 1 Each Tab.er.12h, 1 TAB PO Q12H PRN for CONGESTION, (Reported) L. Acidophilus/Bulgaricus 1 Each Tablet, 1 TAB.CHEW PO AC Prescribed by: LORI GANDHI on 05/14/17 1029 Multivitamin 1 Each Tablet, 1 TAB PO DAILY, (Reported) Naproxen Sodium 220 Mg Tablet, 220-440 MG PO Q8H PRN for PAIN-MILD, (Reported) Omeprazole Magnesium 20 Mg Tablet.dr, 20 MG PO DAILY, (Reported) Prednisone 10 Mg Tab.ds.pk, 10 MG PO DAILY Take 6 tabs(60mg)daily,decrease by 1 tab(10mg)every other day. Prescribed by: LORI GANDHI on 05/14/17 1029 Patient Home Medication List Home Medication List Reviewed: Yes Review of Systems Constitutional: chills, fever (low-grade fevers), malaise EENTM: no symptoms reported Respiratory: cough, dyspnea on exertion; No hemoptysis, No phlegm; short of breath Cardiovascular: No chest pain; edema (bilateral ankle swelling); No palpitations, No syncope Gastrointestinal: No abdominal pain, No constipation, No diarrhea; loss of appetite; No nausea, No vomiting Genitourinary: no symptoms reported Musculoskeletal: no symptoms reported Skin: no symptoms reported Psychiatric/Neurological: No Symptoms Reported All Other Systems Reviewed Negative Unless Noted: Yes (Negative excepted noted.) Past Ybyvwql-Jebbvl-Lqngov Hx Patient Social History Alcohol Use: Denies Use Number of Drinks Today: AA Alcohol Beverage of Choice: Beer Recreational Drug Use: No Type Used: Cigars Former Smoker, Quit: Mar 25, 1985 Recent Foreign Travel: No Contact w/Someone Who Travel: No Recent Infectious Disease Expo: No Recent Hopitalizations: Yes Seasonal Allergies Seasonal Allergies: Yes (SEASONAL ALLERGIES) Past Medical History Surgeries: Yes Eye Surgery, Tonsillectomy Respiratory: Yes (CHRONIC COUGH, ) Pneumonia Cardiac: No Hypertension Neurological: No Genitourinary: No Gastrointestinal: Yes Gastroesophageal Reflux Musculoskeletal: No Endocrine: No HEENT: Yes Glaucoma Cancer: Yes (STAGE 4) Lung Psychosocial: No Integumentary: No Blood Disorders: No Adverse Reaction/Blood Tranf: No Family Medical History Reviewed Nursing Family Hx Cancer Physical Exam Vital Signs Vital Signs - First Documented 06/20/17 06/20/17 16:18 21:40 Temp 99.4 Pulse 115 Resp 18 B/P (MAP) 125/77 (93) Pulse Ox 97 O2 Delivery Nasal Cannula O2 Flow Rate 3.00 Capillary Refill : Less Than 3 Seconds General Appearance: No Apparent Distress, WD/WN HEENT: PERRL/EOMI, TMs Normal, Normal ENT Inspection, Pharynx Normal Neck: Normal Inspection, Supple Respiratory: No Accessory Muscle Use, No Respiratory Distress, Crackles, Decreased Breath Sounds (left base) Cardiovascular: No Murmur, Normal Peripheral Pulses, Tachycardia Gastrointestinal: Normal Bowel Sounds, No Organomegaly, Non Tender, Soft Back: Normal Inspection Extremity: Normal Capillary Refill, No Calf Tenderness, Pedal Edema (one plus pedal edema bilaterally) Neurologic/Psychiatric: Alert, Oriented x3, Normal Mood/Affect Skin: Normal Color, Warm/Dry Focused Exam Lactate Level 06/20/17 18:41: Lactic Acid Level 1.11 Time of Focused Exam: 19:10 Respiratory: Lungs Clear, Normal Breath Sounds, No Accessory Muscle Use, No Respiratory Distress Cardiovascular: No Murmur, Normal Peripheral Pulses, Tachycardia Capillary Refill: Less Than 3 Seconds Skin: normal color, warm/dry Lactic Acid Level Progress/Results/Core Measures Suspected Sepsis Recent Fever Within 48 Hours: Yes Infection Criteria Present: Suspected New Infection New/Unexplained Altered Menta: No Sepsis Screen: Possible Sepsis Risk SIRS Temperature:99.4 Pulse: 115 Respiratory Rate: 18 Laboratory Tests 06/20/17 17:54: White Blood Count 14.4H Blood Pressure 125 /77 Mean: 93 06/20/17 18:41: Lactic Acid Level 1.11 Laboratory Tests 06/20/17 17:54: Creatinine 0.99, Platelet Count 422H, Total Bilirubin 0.3 Results/Orders Lab Results Laboratory Tests Test 06/20/17 17:54 06/20/17 18:41 Range/Units White Blood Count 14.4 H 4.3-11.0 10^3/uL Red Blood Count 3.72 L 4.35-5.85 10^6/uL Hemoglobin 11.5 L 13.3-17.7 G/DL Hematocrit 35 L 40-54 % Mean Corpuscular Volume 95 80-99 FL Mean Corpuscular Hemoglobin 31 25-34 PG Mean Corpuscular Hemoglobin Concent 33 32-36 G/DL Red Cell Distribution Width 14.0 10.0-14.5 % Platelet Count 422 H 130-400 10^3/uL Mean Platelet Volume 9.1 7.4-10.4 FL Neutrophils (%) (Auto) 80 H 42-75 % Lymphocytes (%) (Auto) 7 L 12-44 % Monocytes (%) (Auto) 12 0-12 % Eosinophils (%) (Auto) 1 0-10 % Basophils (%) (Auto) 0 0-10 % Neutrophils # (Auto) 11.5 H 1.8-7.8 X 10^3 Lymphocytes # (Auto) 1.0 1.0-4.0 X 10^3 Monocytes # (Auto) 1.8 H 0.0-1.0 X 10^3 Eosinophils # (Auto) 0.1 0.0-0.3 10^3/uL Basophils # (Auto) 0.1 0.0-0.1 10^3/uL Neutrophils % (Manual) 81 % Lymphocytes % (Manual) 5 % Monocytes % (Manual) 11 % Eosinophils % (Manual) 0 % Basophils % (Manual) 1 % Metamyelocytes % 1 % Band Neutrophils 1 % Blood Morphology Comment NORMAL Sodium Level 139 135-145 MMOL/L Potassium Level 4.6 3.6-5.0 MMOL/L Chloride Level 102 98-107 MMOL/L Carbon Dioxide Level 28 21-32 MMOL/L Anion Gap 9 5-14 MMOL/L Blood Urea Nitrogen 18 7-18 MG/DL Creatinine 0.99 0.60-1.30 MG/DL Estimat Glomerular Filtration Rate > 60 BUN/Creatinine Ratio 18 Glucose Level 106 H 70-105 MG/DL Calcium Level 10.6 H 8.5-10.1 MG/DL Total Bilirubin 0.3 0.1-1.0 MG/DL Aspartate Amino Transf (AST/SGOT) 13 5-34 U/L Alanine Aminotransferase (ALT/SGPT) 13 0-55 U/L Alkaline Phosphatase 121 40-136 U/L Troponin I < 0.30 <0.30 NG/ML B-Type Natriuretic Peptide < 10.0 <100.0 PG/ML Total Protein 6.4 6.4-8.2 GM/DL Albumin 3.5 3.2-4.5 GM/DL TSH Dixon Testing 1.21 0.35-4.94 UIU/ML Lactic Acid Level 1.11 0.50-2.00 MMOL/L My Orders Orders - SATURNINO BACON PA Chest Pa/Lat (2 View) (06/20/17 16:40) Saline Lock/Iv-Start (06/20/17 17:33) Ekg Tracing (06/20/17 17:33) BNP (06/20/17 17:33) Cbc With Automated Diff (06/20/17 17:33) Comprehensive Metabolic Panel (06/20/17 17:33) Thyroid Analyzer (06/20/17 17:33) Troponin I (06/20/17 17:33) Ua Culture If Indicated (06/20/17 17:33) Manual Differential (06/20/17 17:54) Blood Culture (06/20/17 18:52) Lactic Acid Analyzer (06/20/17 18:52) Ns Iv 1000 Ml (Sodium Chloride 0.9%) (06/20/17 18:59) Acetaminophen Tablet (Tylenol Tablet) (06/20/17 18:59) Ceftriaxone Injection (Rocephin Injectio (06/20/17 19:00) Medications Given in ED Current Medications Medications Dose Ordered Sig/Frantz Route Start Time Stop Time Status Last Admin Dose Admin Ceftriaxone Sodium 1000 mg/ Sodium Chloride 50 ml @ 100 mls/hr ONCE ONCE IV 06/20/17 19:00 06/20/17 19:29 DC 06/20/17 19:13 100 MLS/HR Sodium Chloride 1,000 ml @ 0 mls/hr Q0M ONCE IV 06/20/17 18:59 06/20/17 19:00 DC 06/20/17 19:14 0 MLS/HR Vital Signs/I&O 06/20/17 06/20/17 06/20/17 16:18 21:40 23:32 Temp 99.4 98.6 Pulse 115 102 Resp 18 18 B/P (MAP) 125/77 (93) 172/80 (110) Pulse Ox 97 O2 Delivery Nasal Cannula Nasal Cannula Nasal Cannula O2 Flow Rate 3.00 2.00 2.00 Capillary Refill : Less Than 3 Seconds Blood Pressure Mean: 93 ECG Initial ECG Impression Date: June 20, 2017 Initial ECG Impression Time: 18:08 Initial ECG Rate: 111 Initial ECG Rhythm: S.Tach Initial ECG Intervals: Normal Initial ECG Impression: Normal Comment Sinus tachycardia with left ventricular hypertrophy. ECG reviewed with Dr. Boles. Diagnostic Imaging Diagonstic Imaging: Xray Plain Films/CT/US/NM/MRI: chest Comments CHEST PA/LAT (2 VIEW) INDICATION: Shortness of breath. PA and lateral chest. FINDINGS: There is a thoracostomy tube projecting over the left lower chest. There appears to be a loculated effusion in the left lower lateral chest. There are bilateral basilar infiltrates. This is more consolidated on the left than on the right. IMPRESSION: There has been interval placement of a left thoracostomy tube since 05/17/2017. Chest is otherwise unchanged. Dictated by: Dictated on workstation # [id number] Reviewed: Reviewed by Me (radiology report reviewed by me) Departure Communication (Admissions) Time/Spoke to Admitting Phy: 19:15 Dr. Ely graciously accepts patient to her internal medicine service for IV antibiotics, and Dr. rodney, and consult of Dr. Chew/Dr. Drake/Dr. Verdugo. 1919 Dr. Verdugo notified of consult. 1924 Dr. Chew notified of consult. Dr. Drake to be notified in the AM. Patient was noted to spike a fever of 101.6 degrees F. Lactic acid and blood cultures added to the labs. 1909 Diagnostic findings, laboratory findings, and plan for admission discussed with the patient and family. All verbalized understanding and agree with the treatment plan. Dr. Cloud notified of plan for admission. Impression Primary Impression: Sepsis Qualified Codes: A41.9 - Sepsis, unspecified organism Additional Impressions: Bilateral pneumonia Qualified Codes: J18.1 - Lobar pneumonia, unspecified organism Pleural effusion H/O malignant neoplasm of lung Disposition: ADMITTED INPATIENT Condition: Stable Admissions Decision to Admit Reason: Admit from ER (General) Decision to Admit/Date: June 20, 2017 Time/Decision to Admit Time: 19:10 Departure-Patient Inst. Referrals: UMA CRISOSTOMO DO (PCP/Family) Primary Care Physician SATURNINO BACON June 20, 2017 17:44
[2017-06-20 18:01] LABS: BASOPHILS # (AUTO) 0.1 10^3/uL (0.0-0.1); BASOPHILS % (AUTO) 0 % (0-10); EOSINOPHILS # (AUTO) 0.1 10^3/uL (0.0-0.3); EOSINOPHILS % (AUTO) 1 % (0-10); HEMATOCRIT 35 % (40-54); HEMOGLOBIN 11.5 G/DL (13.3-17.7); LYMPHOCYTES % (AUTO) 7 % (12-44); MEAN CORPUSCULAR HEMOGLOBIN 31 PG (25-34); MEAN CORPUSCULAR HGB CONC 33 G/DL (32-36); MEAN CORPUSCULAR VOLUME 95 FL (80-99); MEAN PLATELET VOLUME 9.1 FL (7.4-10.4); MONOCYTES # (AUTO) 1.8 X 10^3 (0.0-1.0); MONOCYTES % (AUTO) 12 % (0-12); NEUTROPHILS # (AUTO) 11.5 X 10^3 (1.8-7.8); NEUTROPHILS % (AUTO) 80 % (42-75); PLATELET COUNT 422 10^3/uL (130-400); RED BLOOD COUNT 3.72 10^6/uL (4.35-5.85); WHITE BLOOD COUNT 14.4 10^3/uL (4.3-11.0)
[2017-06-20 18:21] LABS: BAND NEUTROPHILS 1 %; BASOPHILS % (MANUAL) 1 %; EOSINOPHILS % (MANUAL) 0 %; LYMPHOCYTES % (MANUAL) 5 %; METAMYELOCYTES % 1 %; MONOCYTES % (MANUAL) 11 %; NEUTROPHILS % (MANUAL) 81 %; RBC MORPH NORMAL
[2017-06-20 18:24] LABS: ALANINE AMINOTRANSFERASE 13 U/L (0-55); ALBUMIN 3.5 GM/DL (3.2-4.5); ALKALINE PHOSPHATASE 121 U/L (40-136); BILIRUBIN,TOTAL 0.3 MG/DL (0.1-1.0); BUN/CREATININE RATIO 18; CALCIUM 10.6 MG/DL (8.5-10.1); CARBON DIOXIDE 28 MMOL/L (21-32); CHLORIDE 102 MMOL/L (98-107); CREATININE SERUM 0.99 MG/DL (0.60-1.30); GFR ESTIMATED > 60; GLUCOSE 106 MG/DL (70-105); POTASSIUM 4.6 MMOL/L (3.6-5.0); SODIUM 139 MMOL/L (135-145); TOTAL PROTEIN 6.4 GM/DL (6.4-8.2)
[2017-06-20 18:44] LABS: TSH (THYROID ANALYZER) 1.21 UIU/ML (0.35-4.94)
[2017-06-20] MEDS ORDERED: NS IV 1000 ML 1,000 ML IV ONE (18:59)
[2017-06-20] MEDS ORDERED: ACETAMINOPHEN 500 MG TAB (TYLENOL) PO STA (18:59)
[2017-06-20] MEDS ORDERED: cefTRIAXone INJECTION 1,000 MG in NS (IVPB) 50 ML IV ONE (19:00)
--- NOTE | 2017-06-20 20:35 | CONSULTATION REPORT ---
DATE OF SERVICE: 06/20/2017 ATTENDING PRIMARY CARE PHYSICIAN: Dr. Pedro Mckeon. HISTORY OF PRESENT ILLNESS: The patient is a 76-year-old male, who was diagnosed with a stage IV left-sided lung cancer. He was seen at [facility] and found to have a pleural effusion and a chest tube was placed and consistent with a malignant pleural effusion and stage IV disease. He has been seen by a home health and he has had some shortness of breath, which is not new; however, he has had some fluid retention and weight gain. A chest x-ray was performed, which did show what appeared to be a loculated fluid collection in the lower aspect of the left chest most likely consistent with some component of a loculated pleural effusion. PAST MEDICAL HISTORY: Lung cancer, gastroesophageal reflux disease. PAST SURGICAL HISTORY: Tonsillectomy. ALLERGIES: No known drug allergies. MEDICATIONS: Albuterol MDI 2 puffs q.6 h. p.r.n., albuterol breathing treatments q.4 h., Amlodipine 5 mg daily, Bimatoprost eyedrops daily, fluticasone spray daily, prednisone 10 mg daily, omeprazole 20 mg daily. SOCIAL HISTORY: Previous smoke, quit 15 yrs ago, 40 pack years. Does drink beer daily. FAMILY HISTORY: Some forms of cancer. VITAL SIGNS: Blood pressure 125/77, temperature 99.4, pulse 115, respirations 18, pulse ox stable on 3 liters nasal cannula. REVIEW OF SYSTEMS: A slightly thin-appearing male, currently in no acute distress. He does experience shortness of breath, especially upon exertion. He does have cough and sputum production, which is not new. No nausea or vomiting with decreased appetite. No diarrhea or constipation. No red blood per rectum, no dark tarry stools. No fever, chills with some fluid retention and weight loss in the past several weeks. All other review of systems is negative. PHYSICAL EXAMINATION: CHEST: Bilateral rales and rhonchi with decreased breath sounds left lung base. HEART: Regular, no murmurs. EXTREMITIES: No lower extremity edema. Negative Homans sign. HEENT: No scleral icterus. NECK: No cervical lymphadenopathy. ABDOMEN: Soft, nontender, nondistended. SKIN: Warm, dry. LABORATORY DATA: WBC 14.4, hemoglobin 11.5, hematocrit 35, platelets 422. BUN 18 and creatinine 0.99. ASSESSMENT AND PLAN: A 76-year-old male with stage IV left lung cancer with malignant pleural effusion status post previously placed chest tube. It appears that he does have another loculated fluid collection in the lower aspect of the left chest. We will get an ultrasound to identify more specifically the location and possible chest tube insertion versus thoracentesis for palliative purposes. Job ID: [id number] DocumentID: [id number] Dictated Date: 06/20/2017 20:10:28 Rn Cardiac Date: 06/20/2017 20:34:46 Dictated By: ZEHRA LYONS MD MTDD
[2017-06-20 21:40] VITALS: BP 172/80
[2017-06-20] MEDS ORDERED: NS (IVPB) 250 ML ONE (22:03)
[2017-06-20] MEDS ORDERED: VANCOMYCIN 1000 MG/VIAL ONE (22:03)
[2017-06-20] MEDS ORDERED: KETOROLAC 15 MG/ML VIAL IVP PRN (22:15)
[2017-06-20] MEDS ORDERED: ACETAMINOPHEN 500 MG TAB (TYLENOL) PO PRN (22:15)
[2017-06-20] MEDS ORDERED: VANCOMYCIN 1 GM/NS 250 ML IVPB IV SCH ×2 (22:15)
[2017-06-20] MEDS ORDERED: ONDANSETRON 4 MG/2 ML (SDV) Z0FRAN IV PRN (22:15)
[2017-06-20] MEDS ORDERED: morphine INJ 4 MG/ML 1 ML (VIAL/SYRINGE) IV PRN (22:15)
[2017-06-20] MEDS ORDERED: MELATONIN 3 MG TABLET ONE (23:05)
[2017-06-20] MEDS: MELATONIN 3 MG TABLET PO SCH (23:19)
[2017-06-21] MEDS ORDERED: RT-ALBUTEROL/IPRATROPIUM 3 ML (DUONEB) VIAL INH PRN
[2017-06-21 00:07] VITALS: BP 135/74
[2017-06-21] MEDS ORDERED: PIPERACILLIN/TAZO 4.5 GM VIAL (ZOSYN) IV ONE (00:50)
[2017-06-21] MEDS ORDERED: NS (IVPB) 100 ML ONE (00:50)
[2017-06-21] MEDS: RT-ALBUTEROL/IPRATROPIUM 3 ML (DUONEB) VIAL INH SCH ×6 (01:39→21:12)
[2017-06-21] MEDS ORDERED: NS IV ONE ×2 (02:00)
[2017-06-21] MEDS ORDERED: PIPERACILLIN IV ONE ×2 (02:00)
[2017-06-21] MEDS ORDERED: TAZO IV ONE ×2 (02:00)
[2017-06-21 04:09] VITALS: BP 140/79
[2017-06-21 04:29] LABS: BASOPHILS % (AUTO) 0 % (0-10); EOSINOPHILS % (AUTO) 1 % (0-10); HEMATOCRIT 32 % (40-54); HEMOGLOBIN 10.5 G/DL (13.3-17.7); LYMPHOCYTES # (AUTO) 0.8 X 10^3 (1.0-4.0); LYMPHOCYTES % (AUTO) 6 % (12-44); MEAN CORPUSCULAR HEMOGLOBIN 31 PG (25-34); MEAN CORPUSCULAR HGB CONC 32 G/DL (32-36); MEAN CORPUSCULAR VOLUME 95 FL (80-99); MEAN PLATELET VOLUME 8.9 FL (7.4-10.4); MONOCYTES % (AUTO) 11 % (0-12); NEUTROPHILS # (AUTO) 10.9 X 10^3 (1.8-7.8); NEUTROPHILS % (AUTO) 82 % (42-75); PLATELET COUNT 407 10^3/uL (130-400); RED CELL DISTRIBUTION WIDTH 14.1 % (10.0-14.5); WHITE BLOOD COUNT 13.4 10^3/uL (4.3-11.0)
[2017-06-21 04:30] LABS: BASOPHILS # (AUTO) 0.1 10^3/uL (0.0-0.1); EOSINOPHILS # (AUTO) 0.1 10^3/uL (0.0-0.3); MONOCYTES # (AUTO) 1.5 X 10^3 (0.0-1.0)
[2017-06-21 05:04] LABS: ALANINE AMINOTRANSFERASE 12 U/L (0-55); ALKALINE PHOSPHATASE 98 U/L (40-136); BILIRUBIN,TOTAL 0.3 MG/DL (0.1-1.0); BUN/CREATININE RATIO 19; CALCIUM 9.7 MG/DL (8.5-10.1); CARBON DIOXIDE 26 MMOL/L (21-32); CHLORIDE 108 MMOL/L (98-107); CREATININE SERUM 0.93 MG/DL (0.60-1.30); GFR ESTIMATED > 60; GLUCOSE 123 MG/DL (70-105); POTASSIUM 4.2 MMOL/L (3.6-5.0); SODIUM 141 MMOL/L (135-145); TOTAL PROTEIN 5.8 GM/DL (6.4-8.2)
--- NOTE | 2017-06-21 05:56 | Pulmonary Consultation ---
History of Present Illness History of Present Illness Date of Consultation 06/21/17 05:52 Time Seen by Provider: 05:52 Date of Admission History of Present Illness 76yo well known to me with recent dx of stage 4 lung cancer 05/25. A left Pleurx catheter was placed on however has had minimal drainage. Pt presented to ED last night secondary to increasing SOB and a 3 lb wt gain over the last several days. CXR shows moderate left pleural effusion. Per patient Pleurx catheter has not been draining. I am consulted for pulmonary management. Allergies and Home Medications Allergies Coded Allergies: No Known Drug Allergies (Unverified , 04/30/17) Home Medications Albuterol Sulfate 1 Puff Puff, 2 PUFF IH Q6H PRN for WHEEZING, (Reported) Albuterol Sulfate 2.5 Mg/0.5 Ml Vial.neb, 2.5 MG IH Q4H, (Reported) Amlodipine Besylate 5 Mg Tablet, 5 MG PO DAILY, (Reported) Bimatoprost 2.5 Ml Drops, 1 DROP OS HS, (Reported) Fluticasone Propionate 16 Gm Mio.susp, 2 SPRAYS NSEACH DAILY, (Reported) Guaifenesin/Pseudoephedrne HCl 1 Each Tab.er.12h, 1 TAB PO Q12H PRN for CONGESTION, (Reported) L. Acidophilus/Bulgaricus 1 Each Tablet, 1 TAB.CHEW PO AC Prescribed by: LORI GANDHI on 05/14/17 1029 Multivitamin 1 Each Tablet, 1 TAB PO DAILY, (Reported) Naproxen Sodium 220 Mg Tablet, 220-440 MG PO Q8H PRN for PAIN-MILD, (Reported) Omeprazole Magnesium 20 Mg Tablet.dr, 20 MG PO DAILY, (Reported) Prednisone 10 Mg Tab.ds.pk, 10 MG PO DAILY Take 6 tabs(60mg)daily,decrease by 1 tab(10mg)every other day. Prescribed by: LORI GANDHI on 05/14/17 1029 Past Ovaetef-Nvlfqm-Ruxzrn Hx Patient Social History Alcohol Use: Denies Use Number of Drinks Today: AA Alcohol Beverage of Choice: Beer Recreational Drug Use: No Smoking Status: Former Smoker Type Used: Cigars Former Smoker, Quit: Mar 25, 1985 Recent Foreign Travel: No Contact w/Someone Who Travel: No Recent Infectious Disease Expo: No Recent Hopitalizations: Yes Seasonal Allergies Seasonal Allergies: Yes (SEASONAL ALLERGIES) Past Medical History Surgeries: Yes Eye Surgery, Tonsillectomy Respiratory: Yes (CHRONIC COUGH, Lung CA; PNA) Pneumonia Currently Using CPAP: No Cardiac: No Hypertension Neurological: No Genitourinary: No Gastrointestinal: Yes Gastroesophageal Reflux Musculoskeletal: No Endocrine: No HEENT: Yes Glaucoma Cancer: Yes (STAGE 4) Lung Did You Recieve Any Treatments: No to start chemo in the near future Psychosocial: No Integumentary: No Blood Disorders: No Adverse Reaction/Blood Tranf: No Family Medical History Reviewed Nursing Family Hx Cancer Review of Systems Time Seen by Provider: 07:33 Constitutional: Fever, Sweats, Weakness, Malaise Eyes: No: Pain, Vision change, Conjunctivae inflammation, Eyelid inflammation, Other, Redness ENT: No: Ear pain, Ear discharge, Nose pain, Nose discharge, Nose congestion, Mouth pain, Mouth swelling, Throat pain, Throat swelling, Other Respiratory: Cough, Shortness of breath, SOB with excertion, Sputum; No: Wheezing, Hemoptysis, Pleuritic Pain Cardiovascular: Orthopnea, Paroxysmal Noc. Dyspnea Gastrointestinal: No: Nausea, Vomiting, Abdominal Pain, Diarrhea, Constipation , Melena, Hematochezia, Other Neurological: Weakness Exam Exam Vital Signs Date Time Temp Pulse Resp B/P (MAP) Pulse Ox O2 Delivery O2 Flow Rate FiO2 06/21/17 01:39 95 Nasal Cannula 4.00 06/21/17 00:07 97.7 93 17 135/74 (94) 96 Nasal Cannula 2.00 06/20/17 23:32 Nasal Cannula 2.00 06/20/17 22:40 107 96 06/20/17 22:40 96 Nasal Cannula 4.00 06/20/17 21:40 98.6 102 18 172/80 (110) 97 Nasal Cannula 2.00 06/20/17 21:40 95 Nasal Cannula 4.00 06/20/17 21:30 105 20 148/85 97 Nasal Cannula 4.00 06/20/17 16:18 99.4 115 18 125/77 (93) Nasal Cannula 3.00 I & O 06/21/17 07:00 Intake Total 1500 ml Output Total 0 ml Balance 1500 ml General Appearance: No Apparent Distress, WD/WN HEENT: PERRL/EOMI, TMs Normal, Normal ENT Inspection, Pharynx Normal Neck: Normal Inspection, Supple Respiratory: Lungs Clear, Normal Breath Sounds, No Accessory Muscle Use, No Respiratory Distress Cardiovascular: No Murmur, Normal Peripheral Pulses, Tachycardia Capillary Refill: Less Than 3 Seconds Extremity: Normal Capillary Refill, No Calf Tenderness, Pedal Edema (one plus pedal edema bilaterally) Neurologic/Psychiatric: Alert, Oriented x3, Normal Mood/Affect Skin: Normal Color, Warm/Dry Results Lab Laboratory Tests 06/20/17 17:54 06/21/17 04:19 Assessment/Plan Assessment/Plan Stage 4 lung cancer -Pt was told he is too weak for chemo at this time. -[facility] gave patient 4-12mo life expectancy Moderate Left pleural effusion - pt is requiring 3-4 liters of oxygen currently at rest -Per patient chest tube is not draining -It is probably loculated off. 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 I would recommend home hospice. I do not recommend chest tube placement. I believe this would only add to patients discomfort without significant benefit. If patient is insistent on chest drainage I would recommend a radiology consult for CT guided thoracentesis. I do believe this fluid will most likely rapidly return following drainage. I believe air huger can be controlled with oxygen and comfort meds with assistance of home hospice. 120 mins spent with patient and medical team discussing current medical condition and treatment options. Advance Care discuss with: patient End of Life Care: Pallative Care, Hospice Care (Home) Advance Care Discussion: initiate discussion, clarifying prognosis, identified end-of-life goals, developed treatment plan Time spent on discussion(mins): 120 PHIL KEANE DO June 21, 2017 05:55
[2017-06-21 08:00] VITALS: BP 162/58
[2017-06-21] MEDS: OXYMETAZOLINE (AFRIN) 0.05% NA 15 ML BTL SCH ×2 (08:38→20:52)
[2017-06-21] MEDS: raNItidine 50 MG/NS 50 ML IVPB IV SCH ×6 (08:38→22:29)
[2017-06-21] MEDS ORDERED: FAMOTIDINE 20MG/2ML IV (PEPCID) IVP SCH (09:00)
[2017-06-21] MEDS: VANCOMYCIN 1250 MG/NS 250 ML IVPB IV SCH ×4 (09:09→22:25)
[2017-06-21] MEDS ORDERED: NS IV SCH ×2 (10:00)
[2017-06-21] MEDS ORDERED: PIPERACILLIN IV SCH ×2 (10:00)
[2017-06-21] MEDS ORDERED: TAZO IV SCH ×2 (10:00)
[2017-06-21] MEDS ORDERED: PIPERACILLIN/TAZO 4.5 GM/D5W 100 ML IVPB IV SCH ×2 (11:15)
--- NOTE | 2017-06-21 11:44 | History & Physical-Hospitalist ---
History of Present Illness HPI/Chief Complaint CC: Dyspnea HPI: This is a 76-year-old white male known to hospitalist service from prior hospital stays with past medical history of lung cancer with chronic right lower lobe pleural effusion that required [facility] management and pleuradex catheter placement who presented to the ER with shortness of breath and fever. Patient was found to have bilateral infiltrates on the chest x-ray and a loculated effusion overlapping the catheter in the right lower lobe. It was assessed by multiple physicians that the cancer had progressed to the point that no one could stop the progression including [facility] and the decision was made to consult hospice while maintaining the current treatment while hospitalized during this hospital stay. At this current time patient denies any pain he does want Tessalon Perles for cough and review his home medications and restart everything he needs. Source: patient Exam Limitations: no limitations Date Seen 06/21/17 Time Seen by Provider: 10:45 Attending Physician Alis Ely DO PCP Pedro Mckeon DO Referring Physician Date of Admission June 20, 2017 at 19:15 Home Medications & Allergies Home Medications Reviewed patient Home Medication Reconciliation performed by pharmacy medication reconciliations field service technician and/or nursing. Patients Allergies have been reviewed. Allergies Allergies Coded Allergies No Known Drug Allergies (Unverified04/30/17) Past Kdpzmeo-Wabxfn-Qatpzr Hx Past Med/Social Hx: Reviewed Nursing Past Med/Soc Hx, Reviewed and Corrections made Patient Social History Marrital Status: single Employed/Student: retired Alcohol Use: Denies Use Number of Drinks Today: AA Alcohol Beverage of Choice: Beer Recreational Drug Use: No Smoking Status: Former Smoker Former Smoker, Quit: Mar 25, 1985 Type Used: Cigars Physical Abuse Screen: No Sexual Abuse: No Recent Foreign Travel: No Contact w/other who traveled: No Recent Hopitalizations: Yes Recent Infectious Disease Expo: No Seasonal Allergies Seasonal Allergies: Yes (SEASONAL ALLERGIES) Past Medical History Surgeries: Eye Surgery, Tonsillectomy Respiratory: COPD, Pneumonia Currently Using CPAP: No Cardiac: Hypertension Gastrointestinal: Gastroesophageal Reflux HEENT: Cataract, Glaucoma Cancer: Lung Did You Recieve Any Treatments: No Cancer: to start chemo in the near future History of Blood Disorders: No Adverse Reaction to Blood [place]: No Family History Reviewed Nursing Family Hx Cancer Review of Systems Constitutional: see HPI, fever, malaise, weakness EENTM: no symptoms reported Respiratory: cough, dyspnea on exertion, short of breath, wheezing Cardiovascular: no symptoms reported Gastrointestinal: no symptoms reported Genitourinary: no symptoms reported Musculoskeletal: no symptoms reported Skin: no symptoms reported Psychiatric/Neurological: No Symptoms Reported All Other Systems Reviewed Negative Unless Noted: Yes Physical Exam Physical Exam Vital Signs Vital Signs - First Documented 06/20/17 06/20/17 16:18 21:30 Temp 99.4 Pulse 115 Resp 18 B/P (MAP) 125/77 (93) Pulse Ox 97 O2 Delivery Nasal Cannula O2 Flow Rate 3.00 Capillary Refill : Less Than 3 Seconds General Appearance: No Apparent Distress, WD/WN, Chronically ill Eyes: Bilateral Eye Normal Inspection, Bilateral Eye PERRL HEENT: PERRL/EOMI, Normal ENT Inspection, Pharynx Normal Neck: Full Range of Motion, Normal Inspection, Non Tender, Supple, Carotid Bruit Respiratory: Chest Non Tender, No Accessory Muscle Use, No Respiratory Distress , Crackles, Decreased Breath Sounds, Wheezing Cardiovascular: Regular Rate, Rhythm, No Edema, No Gallop, No JVD, No Murmur, Normal Peripheral Pulses Gastrointestinal: Normal Bowel Sounds, No Organomegaly, No Pulsatile Mass, Non Tender, Soft Back: Normal Inspection, No CVA Tenderness, No Vertebral Tenderness Extremity: Normal Capillary Refill, Normal Inspection, Normal Range of Motion, Non Tender, No Calf Tenderness, No Pedal Edema Neurologic/Psychiatric: Alert, Oriented x3, No Motor/Sensory Deficits, Normal Mood/Affect Skin: Normal Color, Warm/Dry Lymphatic: No Adenopathy Results Results/Procedures Labs Laboratory Tests 06/20/17 17:54 06/21/17 04:19 Patient resulted labs reviewed. Assessment/Plan Admission Diagnosis Assessment: Bilateral multilobar pneumonia Lung cancer rapidly progressive Chronic right pleural effusion status post catheter placement now loculated effusion on top of catheter Plan: Hospice evaluation Palliative care Reconcile and restarted home meds Tessalon Perles Pain medication Nebulizers Oxygen Admission Status: Inpatient Order (span 2 midnights) Reason for Inpatient Admission: Multilobar pneumonia and lung cancer patient will require at least 3 days of IV antibiotics and additional aggressive care Diagnosis/Problems Diagnosis/Problems (1) Bilateral pneumonia Status: Acute Qualifiers: Pneumonia type: due to unspecified organism Lung location: lower lobe of lung Qualified Codes: J18.1 - Lobar pneumonia, unspecified organism (2) Pleural effusion Status: Chronic (3) H/O malignant neoplasm of lung Status: Chronic (4) Hypoxia Status: Acute (5) COPD (chronic obstructive pulmonary disease) Status: Chronic (6) Essential (primary) hypertension Status: Chronic Clinical Quality Measures DVT/VTE Risk/Contraindication: Risk Factor Score Per Nursin RFS Level Per Nursing on Admit: 3=High ALIS ELY DO June 21, 2017 11:44
--- NOTE | 2017-06-21 11:47 | Diagnostic Imaging Report ---
Indication: Pleural effusion PA and lateral chest There is a thoracostomy tube projected over the left lower lateral chest. The patient has some residual left pleural fluid. There is consolidation at the left lower lung. There is also infiltrate present in the right lower lung. Impression: Bilateral basilar infiltrates with greater consolidation on the left than on the right. Left thoracostomy tube is unchanged from previous day. Dictated by: Dictated on workstation # [id number]
[2017-06-21 12:00] VITALS: BP 127/58
--- NOTE | 2017-06-21 13:10 | Diagnostic Imaging Report ---
Indication: Pleural effusion Findings / Impression: Ultrasound guidance was used to ashley the location for a thoracentesis. Static images were recorded. There appears to be left pleural thickening. Dictated by: Dictated on workstation # [id number]
[2017-06-21] MEDS ORDERED: ALPRAZolam 0.25 MG (XANAX) TAB PO PRN (13:45)
[2017-06-21] MEDS ORDERED: morphine IMMEDIATE RELEASE 15 MG TABLET PO PRN (13:45)
[2017-06-21] MEDS: BENZONATATE 100 MG (TESSALON) CAPSULE PO SCH ×2 (14:33→20:53)
--- NOTE | 2017-06-21 15:44 | Progress Note (SOAP) ---
Subjective Date Seen by Provider: June 21, 2017 Time Seen by Provider: 15:00 Subjective/Events-last exam doing ok. no new pulmonary symptoms. cxr unchanged with no significant fluid collection on u/s. patient now comfort care Focused Exam Lactate Level 06/20/17 18:41: Lactic Acid Level 1.11 06/21/17 04:19: Lactic Acid Level 1.15 Time of Focused Exam: 19:10 Objective Exam Vital Signs Date Time Temp Pulse Resp B/P (MAP) Pulse Ox O2 Delivery O2 Flow Rate FiO2 06/21/17 14:05 95 Nasal Cannula 4.00 06/21/17 12:00 98.9 94 18 127/58 (81) 98 Nasal Cannula 2.00 06/21/17 10:22 94 Nasal Cannula 4.00 06/21/17 09:00 Nasal Cannula 4.00 06/21/17 08:00 98.1 74 20 162/58 (92) 93 Nasal Cannula 2.00 06/21/17 06:43 94 Nasal Cannula 4.00 06/21/17 04:09 98.2 98 19 140/79 (99) 99 Nasal Cannula 2.00 06/21/17 01:39 95 Nasal Cannula 4.00 06/21/17 00:07 97.7 93 17 135/74 (94) 96 Nasal Cannula 2.00 06/20/17 23:32 Nasal Cannula 2.00 06/20/17 22:40 107 96 06/20/17 22:40 96 Nasal Cannula 4.00 06/20/17 21:40 98.6 102 18 172/80 (110) 97 Nasal Cannula 2.00 06/20/17 21:40 95 Nasal Cannula 4.00 06/20/17 21:30 105 20 148/85 97 Nasal Cannula 4.00 06/20/17 16:18 99.4 115 18 125/77 (93) Nasal Cannula 3.00 I & O 06/21/17 07:00 Intake Total 1700 ml Output Total 400 ml Balance 1300 ml Capillary Refill : Less Than 3 Seconds General Appearance: No Apparent Distress HEENT: PERRL/EOMI Neck: Full Range of Motion Respiratory: Decreased Breath Sounds, Rhonci, Wheezing Cardiovascular: Regular Rate, Rhythm Gastrointestinal: normal bowel sounds, non tender, soft Extremity: Normal Capillary Refill Neurologic/Psychiatric: Alert, Oriented x3 Skin: Normal Color Lymphatic: No Adenopathy Results Lab Laboratory Tests 06/20/17 17:54: White Blood Count 14.4H, Red Blood Count 3.72L, Hemoglobin 11.5L, Hematocrit 35L , Mean Corpuscular Volume 95, Mean Corpuscular Hemoglobin 31, Mean Corpuscular Hemoglobin Concent 33, Red Cell Distribution Width 14.0, Platelet Count 422H, Mean Platelet Volume 9.1, Neutrophils (%) (Auto) 80H, Lymphocytes (%) (Auto) 7L , Monocytes (%) (Auto) 12, Eosinophils (%) (Auto) 1, Basophils (%) (Auto) 0, Neutrophils # (Auto) 11.5H, Lymphocytes # (Auto) 1.0, Monocytes # (Auto) 1.8H, Eosinophils # (Auto) 0.1, Basophils # (Auto) 0.1, Neutrophils % (Manual) 81, Lymphocytes % (Manual) 5, Monocytes % (Manual) 11, Eosinophils % (Manual) 0, Basophils % (Manual) 1, Metamyelocytes % 1, Band Neutrophils 1, Blood Morphology Comment NORMAL, Sodium Level 139, Potassium Level 4.6, Chloride Level 102, Carbon Dioxide Level 28, Anion Gap 9, Blood Urea Nitrogen 18, Creatinine 0.99, Estimat Glomerular Filtration Rate > 60, BUN/Creatinine Ratio 18, Glucose Level 106H, Calcium Level 10.6H, Total Bilirubin 0.3, Aspartate Amino Transf (AST/SGOT) 13, Alanine Aminotransferase (ALT/SGPT) 13, Alkaline Phosphatase 121, Troponin I < 0.30, B-Type Natriuretic Peptide < 10.0, Total Protein 6.4, Albumin 3.5, TSH [place] Testing 1.21 06/20/17 18:41: Lactic Acid Level 1.11 06/21/17 04:19: White Blood Count 13.4H, Red Blood Count 3.40L, Hemoglobin 10.5L, Hematocrit 32L , Mean Corpuscular Volume 95, Mean Corpuscular Hemoglobin 31, Mean Corpuscular Hemoglobin Concent 32, Red Cell Distribution Width 14.1, Platelet Count 407H, Mean Platelet Volume 8.9, Neutrophils (%) (Auto) 82H, Lymphocytes (%) (Auto) 6L , Monocytes (%) (Auto) 11, Eosinophils (%) (Auto) 1, Basophils (%) (Auto) 0, Neutrophils # (Auto) 10.9H, Lymphocytes # (Auto) 0.8L, Monocytes # (Auto) 1.5H, Eosinophils # (Auto) 0.1, Basophils # (Auto) 0.1, Sodium Level 141, Potassium Level 4.2, Chloride Level 108H, Carbon Dioxide Level 26, Anion Gap 7, Blood Urea Nitrogen 18, Creatinine 0.93, Estimat Glomerular Filtration Rate > 60, BUN/ Creatinine Ratio 19, Glucose Level 123H, Calcium Level 9.7, Total Bilirubin 0.3 , Aspartate Amino Transf (AST/SGOT) 11, Alanine Aminotransferase (ALT/SGPT) 12, Alkaline Phosphatase 98, Total Protein 5.8L, Albumin 3.0L, Lactic Acid Level 1.15 Assessment/Plan Assessment/Plan Assess & Plan/Chief Complaint 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 no identifiable effusion to drain. patient now on comfort care and will go home with Clinical Quality Measures DVT/VTE Risk/Contraindication: Risk Factor Score Per Nursin RFS Level Per Nursing on Admit: 3=High ZEHRA LYONS MD June 21, 2017 15:44
[2017-06-21 16:00] VITALS: BP 133/75
--- NOTE | 2017-06-21 17:34 | Consultation ---
History of Present Illness History of Present Illness Patient Consulted On(marjorie/time) 06/21/17 17:22 Date Seen by Provider: June 21, 2017 Time Seen by Provider: 12:40 History of Present Illness Mr. 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 Because of the "bronchoalveolar" presentation, it was difficult to diagnose without a pleural biopsy and wedge resection, which was completed at [facility] in early to mid May. His breathing and function improved significantly with pleural fluid drainage and permanent pleural catheter drain placement. He presented to the [facility] at the end of May after discharge from the hospital. At the time, he was very debilitated and pathology studies were incomplete. On return to clinic one week ago, his breathing had become mildly worse. Output from his pleural drain had declined significantly. He was not a candidate for chemotherapy given his performance status so we planned to start immunotherapy this week. However, his breathing progressively declined until he presented to the ED last night. He also reported a fever earlier in the morning. Allergies and Home Medications Allergies Coded Allergies: No Known Drug Allergies (Unverified , 04/30/17) Home Medications Albuterol Sulfate 1 Puff Puff, 2 PUFF IH Q6H PRN for WHEEZING, (Reported) Albuterol Sulfate 2.5 Mg/0.5 Ml Vial.neb, 2.5 MG IH Q4H, (Reported) Amlodipine Besylate 5 Mg Tablet, 5 MG PO DAILY, (Reported) Bimatoprost 2.5 Ml Drops, 1 DROP OS HS, (Reported) Fluticasone Propionate 16 Gm [place].susp, 2 SPRAYS NSEACH DAILY, (Reported) Guaifenesin/Pseudoephedrne HCl 1 Each Tab.er.12h, 1 TAB PO Q12H PRN for CONGESTION, (Reported) Multivitamin 1 Each Tablet, 1 TAB PO DAILY, (Reported) Naproxen Sodium 220 Mg Tablet, 220-440 MG PO Q8H PRN for PAIN-MILD, (Reported) Omeprazole Magnesium 20 Mg Tablet.dr, 20 MG PO DAILY, (Reported) Patient Home Medication List Home Medication List Reviewed: Yes Past Nxtvhtt-Hocoyk-Jdyklg Hx Patient Social History Alcohol Use: Denies Use Number of Drinks Today: AA Alcohol Beverage of Choice: Beer Recreational Drug Use: No Smoking Status: Former Smoker Type Used: Cigars Former Smoker, Quit: Mar 25, 1985 Recent Foreign Travel: No Contact w/Someone Who Travel: No Recent Infectious Disease Expo: No Recent Hopitalizations: Yes Seasonal Allergies Seasonal Allergies: Yes (SEASONAL ALLERGIES) Past Medical History Surgeries: Yes Eye Surgery, Tonsillectomy Respiratory: Yes (CHRONIC COUGH, Lung CA; PNA) Pneumonia Currently Using CPAP: No Cardiac: No Hypertension Neurological: No Genitourinary: No Gastrointestinal: Yes Gastroesophageal Reflux Musculoskeletal: No Endocrine: No HEENT: Yes Glaucoma Cancer: Yes (STAGE 4) Lung Did You Recieve Any Treatments: No to start chemo in the near future Psychosocial: No Integumentary: No Blood Disorders: No Adverse Reaction/Blood Tranf: No Family Medical History Reviewed Nursing Family Hx Cancer Review of Systems-General Constitutional: fever, weakness, weight gain EENTM: no symptoms reported Respiratory: cough, short of breath, wheezing Cardiovascular: no symptoms reported Gastrointestinal: no symptoms reported Musculoskeletal: muscle weakness Skin: no symptoms reported Psychiatric/Neurological: No Symptoms Reported Physical Exam-General Problems Physical Exam Vital Signs Vital Signs - First Documented 06/20/17 06/20/17 16:18 21:30 Temp 99.4 Pulse 115 Resp 18 B/P (MAP) 125/77 (93) Pulse Ox 97 O2 Delivery Nasal Cannula O2 Flow Rate 3.00 Capillary Refill : Less Than 3 Seconds General Appearance: moderate distress HEENT: PERRL/EOMI, normal ENT inspection, pharynx normal Neck: supple, normal inspection Respiratory: respiratory distress, decreased breath sounds, accessory muscle use, rales, rhonchi, wheezing Cardiovascular: no murmur, tachycardia Gastrointestinal: non tender, soft, no organomegaly, abnormal bowel sounds ( hypoactive) Extremities: normal inspection, pedal edema Neurologic/Psychiatric: no motor/sensory deficits, alert, normal mood/affect, oriented x 3 Skin: normal color, warm/dry Assessment/Plan Assessment/Plan Admission Diagnosis/Plan 76 yo male with metastatic adenocarcinoma of the lung admitted with hypoxic respiratory failure. The progressive exacerbation of the patient's condition is most likely secondary to tumor progression. Other conditions that could contribute to acute respiratory failure are an underlying infection, worsening pleural effusion, PE, COPD exacerbation, heart failure. Other than underlying infection and perhaps COPD, which I believe are also unlikely, imaging has ruled out most of these disease processes. I had a long discussion with the patient and his family about goals of care. We could treat for these other conditions (ie broad spectrum antibiotics) for another 1-2 days to see if he could improve enough to leave the hospital. Ultimately, however, any of the aggressive courses we take in the hospital are unlikely to make him a candidate for further systemic therapy. Patient and his family have good insight into his overall condition; they asked if hospice was a reasonable decision, and I agreed. They are discussing amongst themselves their plan of care. Thank you for allowing me to participate in the care of this patient. I will continue to follow him while he remains in the hospital. Clinical Quality Measures DVT/VTE Risk/Contraindication: Risk Factor Score Per Nursin RFS Level Per Nursing on Admit: 3=High MINNIE HENRY MD June 21, 2017 17:34
[2017-06-21] MEDS: PIPERACILLIN/TAZO 4.5 GM/D5W 100 ML IVPB IV SCH ×2 (18:04)
[2017-06-21 20:00] VITALS: BP 137/74
[2017-06-21] MEDS: risperiDONE 0.25 MG (RisperDAL) TAB PO SCH (20:53)
[2017-06-21] MEDS: MELATONIN 3 MG TABLET PO SCH (20:53)
[2017-06-21] MEDS ORDERED: RT-ALBUTEROL SULF 2.5 MG/3 ML PRE-MIX VIAL IH PRN (21:15)
[2017-06-21] MEDS ORDERED: RT-ALBUTEROL SULF 2.5 MG/3 ML PRE-MIX VIAL IH SCH (21:15)
[2017-06-22 00:10] VITALS: BP 140/69
[2017-06-22 01:01] VITALS: BP 140/69
[2017-06-22] MEDS: RT-ALBUTEROL/IPRATROPIUM 3 ML (DUONEB) VIAL INH SCH ×3 (01:11→10:13)
[2017-06-22] MEDS: PIPERACILLIN/TAZO 4.5 GM/D5W 100 ML IVPB IV SCH ×4 (02:23→10:00)
[2017-06-22 04:54] VITALS: BP 133/74
--- NOTE | 2017-06-22 05:30 | Pulmonary Progress Note ---
Subjective Time Seen by Provider: 05:30 Subjective/Events-last exam Pt is comfortable all questions answered. No complications noted. Focused Exam Lactate Level 06/20/17 18:41: Lactic Acid Level 1.11 06/21/17 04:19: Lactic Acid Level 1.15 Time of Focused Exam: 19:10 Exam Exam Vital Signs Date Time Temp Pulse Resp B/P (MAP) Pulse Ox O2 Delivery O2 Flow Rate FiO2 06/22/17 04:54 97.6 96 17 133/74 (93) 100 Nasal Cannula 2.00 06/22/17 01:11 98 Nasal Cannula 4.00 06/22/17 01:01 98.5 97 17 140/69 (92) 95 Nasal Cannula 2.00 06/22/17 00:10 98.5 97 17 140/69 (92) 95 Nasal Cannula 2.00 06/21/17 21:12 97 Nasal Cannula 4.00 06/21/17 21:00 Nasal Cannula 4.00 06/21/17 20:00 99.0 106 18 137/74 (95) 96 Nasal Cannula 2.00 06/21/17 16:00 99.5 97 20 133/75 (94) 99 Nasal Cannula 2.00 06/21/17 14:05 95 Nasal Cannula 4.00 06/21/17 12:00 98.9 94 18 127/58 (81) 98 Nasal Cannula 2.00 06/21/17 10:22 94 Nasal Cannula 4.00 06/21/17 09:00 Nasal Cannula 4.00 06/21/17 08:00 98.1 74 20 162/58 (92) 93 Nasal Cannula 2.00 06/21/17 06:43 94 Nasal Cannula 4.00 I & O 06/22/17 07:00 Intake Total 1206.5 ml Output Total 1050 ml Balance 156.5 ml General Appearance: No Apparent Distress, WD/WN, Chronically ill HEENT: PERRL/EOMI, Normal ENT Inspection, Pharynx Normal Neck: Full Range of Motion, Normal Inspection, Non Tender, Supple, Carotid Bruit Respiratory: Chest Non Tender, No Accessory Muscle Use, No Respiratory Distress , Crackles, Decreased Breath Sounds, Wheezing Cardiovascular: Regular Rate, Rhythm, No Edema, No Gallop, No JVD, No Murmur, Normal Peripheral Pulses Capillary Refill: Less Than 3 Seconds Gastrointestinal: non tender, soft, no organomegaly, abnormal bowel sounds ( hypoactive) Extremity: Normal Capillary Refill, Normal Inspection, Normal Range of Motion, Non Tender, No Calf Tenderness, No Pedal Edema Neurologic/Psychiatric: Alert, Oriented x3, No Motor/Sensory Deficits, Normal Mood/Affect Skin: Normal Color, Warm/Dry Lymphatic: No Adenopathy Results Lab Laboratory Tests 06/20/17 17:54 06/21/17 04:19 Assessment/Plan Assessment/Plan Stage 4 lung cancer -Pt was told he is too weak for chemo at this time. -[facility] gave patient 4-12mo life expectancy however with the progression of his pulmonary disease and infiltration that is his cancer progression I expect his prognosis is < 6mo. 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 I recommend home hospice for patients care. From pulmonary standpoint patient can be discharged today with hospice. Change Zosyn to Augmentin for 5 -7 more days then D/C. I have spoke with patient and family in depth about hospice and they agree. I have also spoken to [facility]. They are working on getting him a high flow oxygen concentrator and hospital bed. 232 PHIL KEANE DO June 22, 2017 05:30
[2017-06-22] MEDS: raNItidine 50 MG/NS 50 ML IVPB IV SCH ×4 (05:43→14:25)
[2017-06-22] MEDS ORDERED: MULTIVIT W/MINERALS TAB (THERAGRAN M) PO SCH (07:00)
[2017-06-22] MEDS ORDERED: PANTOPRAZOLE 20 MG TABLET (PROTONIX) PO SCH (07:00)
[2017-06-22] MEDS ORDERED: NAPROXEN 250 MG (NAPROSYN) TABLET PO PRN (07:00)
[2017-06-22] MEDS: VANCOMYCIN 1250 MG/NS 250 ML IVPB IV SCH ×2 (07:54)
[2017-06-22] MEDS: BENZONATATE 100 MG (TESSALON) CAPSULE PO SCH ×2 (07:54→13:59)
[2017-06-22] MEDS: risperiDONE 0.25 MG (RisperDAL) TAB PO SCH (07:55)
[2017-06-22] MEDS: OXYMETAZOLINE (AFRIN) 0.05% NA 15 ML BTL SCH (07:56)
[2017-06-22 08:00] VITALS: BP 129/77
[2017-06-22] MEDS ORDERED: PSEUDOEPHEDRINE HCL 30 MG (SUDAFED) TAB PO PRN ×2 (08:15)
[2017-06-22] MEDS ORDERED: FLUTICASONE NASAL SPRAY (FLONASE) 16 GM BTL NS SCH (09:00)
[2017-06-22] MEDS ORDERED: amLODIPine 5 MG (NORVASC) TAB PO SCH (09:00)
[2017-06-22] MEDS ORDERED: guaiFENesin (MUCINEX) 600 MG TAB PO PRN (09:00)
[2017-06-22] MEDS ORDERED: AMOX-358 PO (10:23)
[2017-06-22] MEDS ORDERED: LORA2ORA PO (10:58)
[2017-06-22] MEDS ORDERED: MORP100S3 PO (10:58)
--- NOTE | 2017-06-22 10:59 | Discharge Summary-Hospitalist ---
Diagnosis/Chief Complaint Date of Admission June 20, 2017 at 19:15 Date of Discharge Discharge Date: June 22, 2017 Admission Diagnosis Assessment: Bilateral multilobar pneumonia Lung cancer rapidly progressive Chronic right pleural effusion status post catheter placement now loculated effusion on top of catheter Plan: Hospice evaluation Palliative care Reconcile and restarted home meds Tessalon Perles Pain medication Nebulizers Oxygen Discharge Diagnosis (1) Bilateral pneumonia Status: Acute (2) Pleural effusion Status: Chronic (3) H/O malignant neoplasm of lung Status: Chronic (4) Hypoxia Status: Acute (5) COPD (chronic obstructive pulmonary disease) Status: Chronic (6) Essential (primary) hypertension Status: Chronic Discharge Summary Discharge Physical Exam Allergies: Coded Allergies: No Known Drug Allergies (Unverified , 04/30/17) Vitals & I&Os Vital Signs Date Time Temp Pulse Resp B/P (MAP) Pulse Ox O2 Delivery O2 Flow Rate FiO2 06/22/17 15:00 101 20 132/75 94 Nasal Cannula 2.00 06/22/17 12:00 97.8 General Appearance: Alert, Oriented X3, Cooperative Respiratory: Other (rales and rhonchi RLL) Neuro: Normal Gait, Normal Speech, Strength at 5/5 X4 Ext Psych/Mental Status: Mental Status NL Hospital Course Hospital course: Patient had a very brief Hospital course he was admitted for bilateral pneumonia and loculated effusion around the pulmonary pleural effusion catheter on the right side. The lung cancer had progressed to the point the [facility] had nothing more to offer and recommended hospice at this current time pulmonology and I both agreed that hospice was the best option and here he had home oxygen set up so he will be completing Augmentin antibiotic for the pneumonia that he currently has and placed on the hospice service with focus on comfort care and maintaining respiratory status that is comfortable. Labs (last 24 hrs) Microbiology 06/20/17 Blood Culture - Preliminary, Resulted No growth 06/21/17 MRSA Screen - Final, Complete MRSA not isolated Patient resulted labs reviewed. Discussion & Recommendations Discharge Planning: <30 minutes discharge planning Discharge Home Medications: Active Scripts Active Lorazepam Intensol (Lorazepam) 2 Mg/1 Ml Oral.conc 1 Mg PO Q2H PRN Morphine Sulfate Concentrate 20mg/ml (Morphine Sulfate) 100 Mg/5 Ml Solution 5 Mg PO Q2H PRN Augmentin 875-125 Tablet (Amoxicillin/Potassium Clav) 1 Each Tablet 875 Each PO BID 7 Days Reported Fluticasone Propionate 16 Gm [place].susp 2 Sprays NSEACH DAILY Albuterol Sulfate 2.5 Mg/0.5 Ml Vial.neb 2.5 Mg IH Q4H Amlodipine Besylate 5 Mg Tablet 5 Mg PO DAILY Aleve (Naproxen Sodium) 220 Mg Tablet 220-440 Mg PO Q8H PRN Mucinex D ER Tablet (Guaifenesin/Pseudoephedrne HCl) 1 Each Tab.er.12h 1 Tab PO Q12H PRN Daily Multiple Vitamin (Multivitamin) 1 Each Tablet 1 Tab PO DAILY Prilosec Otc (Omeprazole Magnesium) 20 Mg Tablet.dr 20 Mg PO DAILY Proair Hfa (Albuterol Sulfate) 1 Puff Puff 2 Puff IH Q6H PRN [place] (Bimatoprost) 2.5 Ml Drops 1 Drop OS HS Instructions to patient/family Please see electronic discharge instructions given to patient. Clinical Quality Measures DVT/VTE Risk/Contraindication: Risk Factor Score Per Nursin RFS Level Per Nursing on Admit: 3=High Problem Qualifiers (1) Bilateral pneumonia: Pneumonia type: due to unspecified organism Lung location: lower lobe of lung Qualified Codes: J18.1 - Lobar pneumonia, unspecified organism SHIVANI CARRANZA DO June 22, 2017 10:59
[2017-06-22 12:00] VITALS: BP 132/75
[2017-06-22 15:00] VITALS: BP 132/75
[2017-06-22] MEDS ORDERED: TROUGH ORDER-PHARMACY XX NR (19:00)
[2017-06-22] MEDS ORDERED: LATANOPROST 0.005% (XALATAN) OPHTH SOLN 2.5 ML OS SCH (21:00)
--- NOTE | 2017-07-16 15:39 | Physician Query Clarification ---
PQ-Uncertain Diagnosis Admission/Discharge Admission Date: June 20, 2017 at 19:15 Discharge Date: June 22, 2017 at 15:00 The medical record reflects the following clinical scenario: History/Risk Factors: History COPD Clinical Findings: no ABG's done, O2 sats 97% on admit Treatment: 2-4 liters on admit and throughout stay Question: Is acute hypoxic respiratory failure a clinically valid diagnosis? Hypoxic respiratory failure was documented in the Dr Colon consult on 06/21 with no further documentation in the medical record. Your summary states acute hypoxia only, which was coded. Please document a response below. PHYSICIAN RESPONSE Diagnosis clinically valid: Yes, Conditon resolved In responding to this query, please exercise your independent professional judgment. The purpose of this communication is to more accurately reflect the complexity of your patients condition. The fact that a question is asked does not imply that any particular answer is desired or expected. Thank you for your timely response to this clarification. Requestors name: Alisha Phone # [phone] THIS PHYSICIAN QUERY FORM IS A PERMANENT PART OF THE MEDICAL RECORD ALISHA OATES Jul 16, 2017 15:39 SHIVANI CARRANZA DO Jul 16, 2017 21:06
== END 2017-06-22 15:00 | disposition hospice, home (50) | DRG 193 ==
LOC: EDUNIT# 16:14 → ER 16:16 → 4TH 19:15
PROVIDERS: ADMIT Internal Medicine; ATTEND Internal Medicine
DX: J18.9 Pneumonia, unspecified organism (principal); J96.01 Acute respiratory failure with hypoxia; J91.0 Malignant pleural effusion; C34.92 Malignant neoplasm of unspecified part of left bronchus or lung; J84.9 Interstitial pulmonary disease, unspecified; J64 Unspecified pneumoconiosis; R09.02 Hypoxemia; K21.9 Gastro-esophageal reflux disease without esophagitis; Z51.5 Encounter for palliative care; J30.2 Other seasonal allergic rhinitis; I10 Essential (primary) hypertension; H40.9 Unspecified glaucoma; Z87.891 Personal history of nicotine dependence; Z72.89 Other problems related to lifestyle
CPT/HCPCS: 36415; 71046; 76604; 80053; 83605; 83880; 84443; 84484; 85007; 85025; 85027; 87040; 87081; 93005; 94640; 94760; 96361; 96365